=== PATIENT | female | born 1960 | race Caucasian/White ===

== ENCOUNTER → 2020-09-16 14:54 | Outpatient (CLI) | payer OTHER, SELFPAY ==
--- NOTE | ~2020-09-16 | US_ITS ---
EXAMINATION: US transvaginal DATE: 09/16/2020 15:13 INDICATION: Follow-up left ovarian cyst Comparison: Comparison to multiple prior studies sequentially, with oldest reviewed study dated 04/11. TECHNIQUE: Multiple endovaginal sonographic images of the pelvis performed. FINDINGS: The uterus is surgically absent. The right ovary is not visualized. The left ovary contains a cyst measuring 7.5 x 6.1 x 5 cm which barreto s increased in size over time. This cyst measured 3.9 x 3.9 x 2.3 cm on 04/29/2015, 6.4 x 4.5 x 5.5 c m on 01/12/2017 and 6.1 x 6 x 4.8 cm on 09/05/2018. No significant soft tissue component to this cyst. No abnormal vascularity. There is no free fluid in the pelvis. There are no abnormal masses seen on either side. IMPRESSION: 1. Enlarging simple cyst in the left adnexa, likely ovarian. This still likely represents a benign cy st, although given interval enlargement, surgical consultation is recommended. Reviewed, dictated and finalized at location A. [facility] IMPRESSION: 1. Enlarging simple cyst in the left adnexa, likely ovarian. This still likely represents a benign cyst, although given interval enlargement, surgical consult ation is recommended.
== END ==
PROVIDERS: Visit Provider Nurse Practitioner
DX: N83.202 Unspecified ovarian cyst, left side (principal)
CPT/HCPCS: 76830

== ENCOUNTER → 2020-12-12 02:08 | Outpatient (CLI) | payer MEDICARE, SELFPAY ==
[2020-12-12 18:15] LABS: SARS-CoV-2 RNA PCR Negative
== END ==
PROVIDERS: Visit Provider Obstetrics & Gynecology Gynecology
DX: Z01.812 Encounter for preprocedural laboratory examination (principal); Z20.822 Contact with and (suspected) exposure to COVID-19
CPT/HCPCS: C9803; U0003; U0005

== ENCOUNTER 2020-12-15 01:18 | Day surgery (SDC) | payer MEDICARE, SELFPAY ==
[2020-12-02 09:22] VITALS: BMI 41.2
[2020-12-15] VITALS (10 sets, daily range): BP systolic 121–150; BP diastolic 62–88; PULSE 61–96; RESP 10–24; TEMP 36.1–36.7; O2SAT 90–100; BMI 40.5
[2020-12-15] MEDS: LACTATED RINGERS 1,000 ML 30 ML IV CONT ×2 (06:29→08:52)
[2020-12-15] MEDS: KETOROLAC 15 MG/ML VIAL (*BKC) IV PUSH (06:30)
[2020-12-15] MEDS: ACETAMINOPHEN 500 MG TABLET 1000 MG PO (06:30)
--- NOTE | 2020-12-15 06:35 | WPDANESEPPF ---
Anes - Initial Pre Proc Eval Procedure: Operation Date: 12/15/20 07:30 Proposed Procedures p Laparoscopic Left Oophorectomy, Possible Right Oophorectomy - Thi Montelonog MD Date/Time: 12/15/20 06:35 Surgeon: Thi Montelongo MD Pre Op Diagnosis: Left Ovarian Cyst Patient Data Age: 60 Gender: F Height: 5 ft 5 in Weight: 112.49 kg Allergies Allergy/AdvReac Type Severity Reaction Status Date / Time No Known Allergies Allergy Verified 12/02/20 09:19 Home Medications Medication Instructions Recorded Confirmed Type Lactobacillus acidophilus 10,000 mmu cells PO HS 12/02/20 12/02/20 History [Probiotic] albuterol sulfate 90 mcg INHALATION Q6H PRN 12/02/20 12/02/20 History carisoprodol 350 mg PO HS 12/02/20 12/02/20 History cholecalciferol (vitamin D3) 125 mcg PO HS 12/02/20 12/02/20 History [Vitamin D3] fluticasone propion-salmeterol 1 puff INHALATION BID 12/02/20 12/02/20 History [Advair HFA] magnesium 100 mg PO HS 12/02/20 12/02/20 History multivitamin 1 tablet PO HS 12/02/20 12/02/20 History Patient hx anesthesia problems: none Family hx anesthesia problems: none PMFSH Past Medical History Medical History (Updated 12/15/20 @ 06:35 by Lauri James MD) Asthma HTN (hypertension) Morbid obesity MARIELY (obstructive sleep apnea) Surgical History Surgical History (Updated 12/15/20 @ 06:35 by Lauri James MD) H/O: hysterectomy Hx of laparoscopic gastric banding Family History Family History Sibling Hypertension Patient's sister is in good health Patient's brother is in good health Father Family history of heart disease in male family member before age 55 Patient's father is in good health Mother Patient's mother is in good health Other Family history of cardiovascular disease Social History Social History Smoking packs per day: 0.75 Smoking cigarettes per day: 15.0 Years smoked: 20 Smoking pack-years: 15.00 Smoking status: Former smoker Smoking end date: 07/11/00 Alcohol intake: never Substance use: current Substance use type: marijuana Other substance usage details: CBD OIL/SPRAY Last use: 11/18/20 Living arrangements: with family Spiritual care concerns: No Anes - Eval Final PreProcedure Day of Procedure 12/15/20 06:35 Patient weight: morbidly obese Heart: regular rate and rhythm Lungs: clear to auscultation Airway: Mallampati scale class II Neurological: alert and oriented Last oral intake: >/= 8 hours ASA classification: III Emergent: no Anesthetic plan: proceed Anesthesia type and monitoring: general ETT and standard monitoring Informed Consent: The patient's anesthetic plan and its attendant risks and benefits were discussed with the patient/family/POA. Questions were solicited and answers provided to the satisfaction of the patient/family/POA.
--- NOTE | 2020-12-15 07:16 | WPDHPUPDATE1 ---
History and Physical Update Update Date/Time: 12/15/20 07:16 History and Physical has been reviewed, including an updated exam of the patient. There are NO changes in the patient's condition. Risks, benefits, and alternatives have been discussed and questions answered. Patient agrees to proceed with procedure.
--- NOTE | 2020-12-15 07:16 | PM.HPGS ---
History of Present Illness History of Present Illness Consent: Risks, benefits, and alternatives have been discussed and questions answered. Patient agrees to proceed with procedure. Chief complaint: Left Ovarian Cyst Narrative: Amalia Barrett is a 60 year old female with left ovarian cyst. Cyst has been been stable since 2017. Patient has no symptoms from cyst but has decided to have it removed. It was discussed that with stability of cyst and no symptoms, my recommendation would be to leave in place and check periodically with u/s due to risks of surgery. Ca 125 is normal. Risks of infection, bleeding, injury to internal organs (maurizio. bowel, bladder, ureters, uterus, tubes), possible need for laparotomy, DVT, and general anesthesia. Possible injury to her port at her umbilicus from her lap band. Patient wants to proceed with surgery. In addition, she wants her right ovary removed unless it has extensive scarring. Patient wants to proceed with laparoscopy with BSO possible laparotomy for LSO if needed but not if only for RSO. Review of Systems Gastrointestinal: Gastrointestinal: Reports diarrhea Genitourinary: Genitourinary: Reports urinary incontinence Musculoskeletal: Musculoskeletal: Reports arthralgias [facility] Past Medical History Medical History (Updated 12/15/20 @ 07:26 by Thi Montelongo MD) Asthma Depression HTN (hypertension) Lumbar disc disease 2015 discectomy Morbid obesity (normal spontaneous vaginal delivery) x3 MARIELY (obstructive sleep apnea) Surgical History Surgical History (Updated 12/15/20 @ 07:25 by Thi Montelongo MD) H/O: hysterectomy TVH-bilateral salpingectomy; anterior and posterior repair; TOT History of x1 Hx of laparoscopic gastric banding Family History Family History Sibling Hypertension Patient's sister is in good health Patient's brother is in good health Father Family history of heart disease in male family member before age 55 Patient's father is in good health Mother Patient's mother is in good health Other Family history of cardiovascular disease Social History Social History Smoking packs per day: 0.75 Smoking cigarettes per day: 15.0 Years smoked: 20 Smoking pack-years: 15.00 Smoking status: Former smoker Smoking end date: 07/11/00 Alcohol intake: never Substance use: current Substance use type: marijuana Other substance usage details: CBD OIL/SPRAY Last use: 11/18/20 Living arrangements: with family Spiritual care concerns: No Meds Home Medications and Allergies Home Medications Medication Instructions Recorded Confirmed Type Lactobacillus acidophilus 10,000 mmu cells PO HS 12/02/20 12/02/20 History [Probiotic] albuterol sulfate 90 mcg INHALATION Q6H PRN 12/02/20 12/02/20 History carisoprodol 350 mg PO HS 12/02/20 12/02/20 History cholecalciferol (vitamin D3) 125 mcg PO HS 12/02/20 12/02/20 History [Vitamin D3] fluticasone propion-salmeterol 1 puff INHALATION BID 12/02/20 12/02/20 History [Advair HFA] magnesium 100 mg PO HS 12/02/20 12/02/20 History multivitamin 1 tablet PO HS 12/02/20 12/02/20 History Allergies Allergy/AdvReac Type Severity Reaction Status Date / Time No Known Allergies Allergy Verified 12/15/20 07:02 Vital Signs Vital Signs - 24 hr 12/15/20 06:45 Temperature 97 F L Pulse Rate 96 Respiratory Rate 14 Blood Pressure 150/88 H Pulse Oximetry 95 Exam Const: General: healthy appearing and alert Nutritional Appearance: obese (BMI 42.3) Orientation/consciousness: patient oriented x3 Resp: Effort & Inspection: normal respiratory effort Auscultation: clear to auscultation bilaterally Cardio: Rate: regular rate Rhythm: regular rhythm GI: GI Palp: Yes Soft to palpation, No Tenderness to palpation present (GI) and No Palpable mass present G
--- NOTE | 2020-12-15 08:47 | PM.PROC ---
Procedure Note - Detailed Date of procedure: 12/15/20 Pre-op diagnosis: Left Ovarian Cyst Post-op diagnosis: same Procedure performed: Laparoscopic left oophorectomy Description of procedure: The patient was taken to the operating room and placed in the dorsal lithotomy position under anesthesia. She was prepped and draped in the usual sterile fashion. The bladder was drained with a red rubber catheter. A sponge stick is placed vaginally. Attention is then turned to the abdomen. Approximately 4cm below the umbilicus in the midline the abdomen is incised in a vertical fashion and a Veress needle placed. The Veress needle was noted to be too short. The long Veress needle was then placed and water drop test is normal opening patient pressure is 7mmHg. Pneumoperitoneum was obtained to a patient pressure of 15. The Veress needle was then removed and the long 5mm trocar is placed. Intra-abdominal placement was confirmed with the laparoscope. A 5 mm trocar is placed in the midline under direct visualization 2cm above the symphysis pubis. The blunt probe was used and adhesions are noted from the omentum to the bladder flap. These were taken down using Mersilene scissors with cautery. The left ovary is visible and on attempt to bring the ovary into the surgical field it is noted to be adherent to the pelvic sidewall as well as to the omentum. Blood supply is not able to be visualized well. The decision was made to drain this cyst and fluid is collected for specimen. The cyst is opened with Mersilene scissors and copious amounts of straw-colored clear fluid were noted. The cyst drained completely. The cyst wall is then grasped and applied under countertraction. A 12mm trocar is placed in the left lower quadrant. Using 2 firings of the Endo-CARMEN stapler the specimen the is detached from the sidewall the Mersilene scissors are used for the last portion where the stapler did not cut. The specimen is removed as the 12mm trocar is removed intact the right ovary is inspected and noted to be densely adherent to the right pelvic sidewall and as previously discussed with the patient decision was made to leave the ovary intact and not open. The pelvis is irrigated noted to be hemostatic and pedicles are noted to be hemostatic. All instruments are removed. Fascia in the 12 mm left lower quadrant port is closed using 0 Vicryl. Skin incisions were closed using 4 0 nylon in interrupted fashion. Sponge, needle, and instrument counts are correct per the OR staff. Anesthesia: GETA Surgeon: Thi Montelongo MD Estimated blood loss (mL): 5 Drains: No Packing: No Pathology: yes (Left ovary) Complications: No immediate complications Condition: stable Disposition: PACU Findings: Left ovary is enlarged with a simple cyst adherent to sidewall and omentum. The right ovary is extensively scarred to the pelvic sidewall in appears normal.
--- NOTE | 2020-12-15 09:12 | SUR.PHASEI ---
O2 removed at 0910.
[2020-12-15] MEDS: fentaNYL CITRATE INJ (*CRX) 100 MCG/2 ML VIAL 25 MCG IV PUSH (09:19)
[2020-12-15] MEDS: oxyCODONE HCL (*CRX) 5 MG TAB IR PO (10:15)
== END 2020-12-15 11:54 | disposition home or self-care (01) ==
PROVIDERS: PCP Family Medicine; Visit Provider Obstetrics & Gynecology Gynecology
PROC: (CPT 49320; principal; 2020-12-15 07:30)
DX: D27.1 Benign neoplasm of left ovary (principal); I10 Essential (primary) hypertension; G47.33 Obstructive sleep apnea (adult) (pediatric); J45.909 Unspecified asthma, uncomplicated; E66.01 Morbid (severe) obesity due to excess calories; Z68.41 Body mass index [BMI] 40.0-44.9, adult; Z87.891 Personal history of nicotine dependence
CPT/HCPCS: 58661; 88108; 88305; A9270; C9803; J1100; J1885; J2250; J2405; J2704; J2710; J3010; J7030; J7120; U0003; U0005

== ENCOUNTER 2022-10-22 00:52 | Day surgery (SDC) | payer MEDICARE, SELFPAY ==
[2022-10-08 13:35] VITALS: BMI 39.9
[2022-10-22 10:01] VITALS: BP 136/78; PULSE 93; RESP 18; TEMP 36.1; O2SAT 94
[2022-10-22] MEDS: LACTATED RINGERS 1,000 ML 150 ML IV CONT (10:13)
[2022-10-22 10:17] LABS: Glucose Point of Care 80 mg/dl (65-105)
--- NOTE | 2022-10-22 10:18 | PM.HPGS ---
History of Present Illness History of Present Illness Consent: Risks, benefits, and alternatives have been discussed and questions answered. Patient agrees to proceed with procedure. Chief complaint: epigastric pain, change in bowel habit Narrative: Amalia Barrett is a 62 year old female Referred for colonoscopy and EGD. Patient reports sticky tarry stools. She states they were darker in nature. No obvious bleeding noted. She reports no recent stool testing has been accomplished. Patient notes vague epigastric discomfort. She reports 10 years ago had a hyperplastic colon polyp. Patient is not yet tried any fiber supplementation for her irregular stools. EGD and colonoscopy requested because of her discomfort. Patient does have a past medical history of a lap band. Review of Systems Review of Systems: Review of systems noncontributory. [facility] Past Medical History Medical History (Updated 09/23/22 @ 13:56 by Joellen Lopez APN-Samina) Asthma Black tarry stools Depression Encounter for screening colonoscopy Epigastric pain HTN (hypertension) Loose stools Lumbar disc disease 2015 discectomy Morbid obesity (normal spontaneous vaginal delivery) x3 Obese MARIELY (obstructive sleep apnea) Surgical History Surgical History H/O: hysterectomy TVH-bilateral salpingectomy; anterior and posterior repair; TOT History of x1 Hx of laparoscopic gastric banding Family History Family History Sibling Hypertension Patient's sister is in good health Patient's brother is in good health Father Family history of heart disease in male family member before age 55 Patient's father is in good health Mother Patient's mother is in good health Other Family history of cardiovascular disease Social History Social History Smoking packs per day: 0.5 Smoking cigarettes per day: 10.0 Years smoked: 20 Smoking pack-years: 10.00 Smoking status: Former smoker Tobacco type: cigarettes Smoking end date: 07/11/00 Alcohol intake: never Substance use: current Substance use type: marijuana Other substance usage details: CBD OIL/SPRAY Last use: 10/01/22 Lack of Transportation: No Lack of Food: Never True Current Housing: I Have Housing Concerned About Future Housing: No Difficulty Paying Gas/Electric Bills: No Difficulty Paying for Meds: No Currently Unemployed: No Education: High School Diploma/GED Difficulty w/ Childcare or Family Care: No Living arrangements: with family Spiritual care concerns: No Meds Home Medications and Allergies Home Medications Medication Instructions Recorded Confirmed Type albuterol sulfate 90 mcg/actuation 90 mcg inhalation Q6H PRN 12/02/20 10/08/22 History aerosol inhaler Bronchospasm fluticasone propionate 115 1 puff inhalation DAILY 12/02/20 10/08/22 History mcg-salmeterol 21 mcg/actuation HFA inhaler (Advair HFA) losartan 100 mg tablet 100 mg PO DAILY 09/09/22 10/08/22 History mupirocin 2 % topical ointment 1 applic topical BID #22 grams 09/09/22 10/08/22 Rx sodium,potassium,mag sulfates 17.5 See Rx Instructions PO .COMPLEX 09/28/22 10/08/22 Rx gram-3.13 gram-1.6 gram oral soln #354 mL (Suprep Bowel Prep Kit) Mounjaro 2.5 mg subdermal WEEKLY 10/08/22 10/08/22 History atorvastatin 10 mg PO DAILY 10/08/22 10/08/22 History diltiazem HCl 240 mg 240 mg PO DAILY 10/08/22 10/08/22 History capsule,extended release 24 hr Allergies Allergy/AdvReac Type Severity Reaction Status Date / Time No Known Allergies Allergy Verified 10/22/22 10:00 Vital Signs Vital Signs - 24 hr 10/22/22 10:01 Temperature 97 F L Pulse Rate 93 Respiratory Rate 18 Blood Pressure 136/78 Pulse Oximetry 94 Oxygen Delivery Room Air Exam Narrative: Physical exam reveals pa
--- NOTE | 2022-10-22 10:42 | WPDANESEPPF ---
Anes - Initial Pre Proc Eval Procedure: Operation Date: 10/22/22 11:00 Proposed Procedures p Esophagogastroduodenoscopy & Colonoscopy - Dmitri Richey MD Date/Time: 10/22/22 10:42 Surgeon: Dmitri Richey MD Pre Op Diagnosis: epigastric pain, change in bowel habit Patient Data Age: 62 Gender: F Height: 1.65 m Weight: 108.7 kg Last Vital Signs Temp 97 F L 10/22/22 10:01 Pulse 93 10/22/22 10:01 Resp 18 10/22/22 10:01 BP 136/78 10/22/22 10:01 Pulse Ox 94 10/22/22 10:01 O2 Del Method Room Air 10/22/22 10:01 Allergies Allergy/AdvReac Type Severity Reaction Status Date / Time No Known Allergies Allergy Verified 10/22/22 10:00 Home Medications Medication Instructions Recorded Confirmed Type albuterol sulfate 90 mcg/actuation 90 mcg inhalation Q6H PRN 12/02/20 10/08/22 History aerosol inhaler Bronchospasm fluticasone propionate 115 1 puff inhalation DAILY 12/02/20 10/08/22 History mcg-salmeterol 21 mcg/actuation HFA inhaler (Advair HFA) losartan 100 mg tablet 100 mg PO DAILY 09/09/22 10/08/22 History mupirocin 2 % topical ointment 1 applic topical BID #22 grams 09/09/22 10/08/22 Rx sodium,potassium,mag sulfates 17.5 See Rx Instructions PO .COMPLEX 09/28/22 10/08/22 Rx gram-3.13 gram-1.6 gram oral soln #354 mL (Suprep Bowel Prep Kit) Mounjaro 2.5 mg subdermal WEEKLY 10/08/22 10/08/22 History atorvastatin 10 mg PO DAILY 10/08/22 10/08/22 History diltiazem HCl 240 mg 240 mg PO DAILY 10/08/22 10/08/22 History capsule,extended release 24 hr Laboratory Tests 10/22/22 10:12 POC Capillary Glucose 80 mg/dl mg/dl (65-105) Patient hx anesthesia problems: none Family hx anesthesia problems: none Results Review: All pre-operative results and documents have been reviewed as part of the pre-operative evaluation. [facility] Past Medical History Medical History (Updated 09/23/22 @ 13:56 by JOSÉ MIGUEL Calderon) Asthma Black tarry stools Depression Encounter for screening colonoscopy Epigastric pain HTN (hypertension) Loose stools Lumbar disc disease 2015 discectomy Morbid obesity (normal spontaneous vaginal delivery) x3 Obese MARIELY (obstructive sleep apnea) Surgical History Surgical History H/O: hysterectomy TVH-bilateral salpingectomy; anterior and posterior repair; TOT History of x1 Hx of laparoscopic gastric banding Family History Family History Sibling Hypertension Patient's sister is in good health Patient's brother is in good health Father Family history of heart disease in male family member before age 55 Patient's father is in good health Mother Patient's mother is in good health Other Family history of cardiovascular disease Social History Social History Smoking packs per day: 0.5 Smoking cigarettes per day: 10.0 Years smoked: 20 Smoking pack-years: 10.00 Smoking status: Former smoker Tobacco type: cigarettes Smoking end date: 07/11/00 Alcohol intake: never Substance use: current Substance use type: marijuana Other substance usage details: CBD OIL/SPRAY Last use: 10/01/22 Lack of Transportation: No Lack of Food: Never True Current Housing: I Have Housing Concerned About Future Housing: No Difficulty Paying Gas/Electric Bills: No Difficulty Paying for Meds: No Currently Unemployed: No Education: High School Diploma/GED Difficulty w/ Childcare or Family Care: No Living arrangements: with family Spiritual care concerns: No Anes - Eval Final PreProcedure Day of Procedure 10/22/22 10:42 Patient weight: morbidly obese Heart: regular rate and rhythm Lungs: clear to auscultation Airway: Mallampati scale class II Neurological: alert and oriented Last oral intake: >/= 8 hours ASA classification:
[2022-10-22 11:23] VITALS: BP 114/69; PULSE 90; RESP 16; O2SAT 97
[2022-10-22 11:33] VITALS: BP 127/80; PULSE 94; RESP 22; O2SAT 96
[2022-10-22 11:43] VITALS: BP 119/78; PULSE 85; RESP 18; O2SAT 97
--- NOTE | 2022-10-22 12:12 | SUR.OPER ---
EGD started at 1049 and ended at 1051. Colonoscopy started at 1057 and ended at 1114.
== END 2022-10-22 12:00 | disposition home or self-care (01) ==
PROVIDERS: PCP Family Medicine; Visit Provider Internal Medicine Gastroenterology
PROC: 0DJ08ZZ Inspection of Upper Intestinal Tract, Via Natural or Artificial Opening Endoscopic (ICD-10-PCS; CPT 43235; principal; 2022-10-22 11:00)
DX: Z12.11 Encounter for screening for malignant neoplasm of colon (principal); D12.5 Benign neoplasm of sigmoid colon; D12.2 Benign neoplasm of ascending colon; K57.30 Diverticulosis of large intestine without perforation or abscess without bleeding; K64.8 Other hemorrhoids; K21.00 Gastro-esophageal reflux disease with esophagitis, without bleeding; J45.909 Unspecified asthma, uncomplicated; I10 Essential (primary) hypertension; G47.33 Obstructive sleep apnea (adult) (pediatric); Z98.84 Bariatric surgery status; Z87.891 Personal history of nicotine dependence; F12.90 Cannabis use, unspecified, uncomplicated; E66.01 Morbid (severe) obesity due to excess calories; Z68.39 Body mass index [BMI] 39.0-39.9, adult; Z79.51 Long term (current) use of inhaled steroids
CPT/HCPCS: 45385; 45381; 43239; 82948; 87081; 88305; J2704; J7120

== ENCOUNTER 2023-06-11 09:40 | Outpatient (CLI) | payer MEDICARE, SELFPAY ==
--- NOTE | 2023-06-11 | ECHO_ITS ---
Patient Info Name: Amalia Barrett Age: 62 years : 1960 Gender: Female Ht: 65 in Wt: 222 lbs BSA: 2.19 m2 HR: 95 bpm BP: 148 / 92 mmHg Heart Rhythm: Sinus Rhythm Technical Quality: Good Exam Date: 06/11/2023 10:05 AM Exam Location: Echo Lab Patient Status: Outpatient Admit Date: 06/11/2023 Staff Ordering Physician: Vijay Torres MD Safety Inspector: Luis Marcos RDCS Attending Provider: Vijay Torres MD Exam Type: CA echo doppler color flow Study Info Indications - ortheostatic dizziness Complete two-dimensional, color flow and Doppler transthoracic echocardiogram is performed. Summary 1. Complete two-dimensional, color flow and Doppler transthoracic echocardiogram is performed. 2. Left ventricular chamber dimension is normal. 3. Left ventricular systolic function is normal, estimated at 60-65%. 4. There is mild concentric increased left ventricular wall thickness. 5. The left ventricular diastolic function is grade I diastolic dysfunction. 6. E/e' 9 is minimally elevated. 7. No pulmonary hypertension, estimated pulmonary arterial systolic pressure is 10 mmHg. Left Ventricle E/e' 9 is minimally elevated. Left ventricular chamber dimension is normal. Left ventricular systolic function is normal, estimated at 60-65%. There is mild concentric increased left ventricular wall thickness. The left ventricular diastolic function is grade I diastolic dysfunction. Right Ventricle Right ventricular chamber dimension is normal. Right ventricular systolic function is normal. Left Atria Left atrial chamber dimension is normal. Right Atria Right atrial chamber dimension is normal. Aortic Valve The aortic valve is trileaflet. There is no aortic valve stenosis. There is no aortic valve regurgitation. Pulmonic Valve There is no pulmonic regurgitation. Mitral Valve There is no mitral valve stenosis. There is no mitral valve regurgitation. Tricuspid Valve There is no tricuspid valve regurgitation. No pulmonary hypertension, estimated pulmonary arterial systolic pressure is 10 mmHg. Pericardium/Pleural There is no pericardial effusion. Inferior Vena Cava Normal inferior vena cava with >50% collapse upon inspiration consistent with normal right atrial pressure, 5 mmHg. Aorta The aortic root size at the sinus of Valsalva is normal. Left Ventricular Outflow Tract Name Value Normal LVOT 2D LVOT Diameter 1.9 cm LVOT Doppler LVOT Peak Gradient 3 mmHg LVOT Mean Gradient 2 mmHg LVOT VTI 23 cm LVOT VTI/AV VTI Ratio 0.9 LVOT Stroke Volume 63 ml LVOT CO 4.2 l/min LVOT CI 1.9 l/min/m2 Pulmonic Valve Name Value Normal RVOT Doppler RVOT Peak Gradient 1 mmHg PV Doppler
[2023-06-11 09:59] LABS: Basophils Absolute Auto 0.1 K/mm3 (0.0-0.1); Basophils Percent Auto 0.8 % (0.2-1.2); Eosinophils Absolute Auto 0.2 K/mm3 (0-0.3); Eosinophils Percent Auto 3.8 % (0-4.4); Hematocrit 44.5 % (37.0-47.0); Hemoglobin 13.9 g/dL (12.0-15.0); Immature Granulocyte Absolute 0.01 K/mm3 (0.00-0.031); Immature Granulocyte Percent A 0.2 % (0-0.5); Lymphocytes Absolute Auto 2.68 K/mm3 (0.9-3.2); Lymphocytes Percent Auto 42.4 % (18.3-44.2); Mean Corpuscular HGB Conc 31.2 g/dl (32-36); Mean Corpuscular Hemoglobin 29.4 pg (26-34); Mean Corpuscular Volume 94.1 fl (80-100); Monocytes Absolute Auto 0.5 K/mm3 (0.1-0.6); Monocytes Percent Auto 7.9 % (2.6-8.5); Neutrophils Absolute Auto 2.8 K/mm3 (1.3-6.7); Neutrophils Percent Auto 44.9 % (45.5-73.1); Platelet Count Result 329 k/mm3 (150-375); Red Blood Count 4.73 M/mm3 (4.2-5.4); White Blood Count 6.3 K/mm3 (4.5-10.0)
[2023-06-11 10:08] LABS: Alanine Aminotransferase 26 U/L (6-35); Albumin Level 4.4 g/dL (3.5-5.1); Alkaline Phosphatase 91 U/L (38-126); Anion Gap 8 mmol/L (8-16); Aspartate Amino Transferase 29 U/L (14-36); Bilirubin,Total 0.5 mg/dL (0.2-1.3); Blood Urea Nitrogen 10 mg/dL (7-17); Calcium 9.2 mg/dL (8.4-10.2); Carbon Dioxide 31 mmol/L (22-30); Chloride 103 mmol/L (98-107); Estimated Glomerular Filt Rate > 60; Glucose 103 mg/dL (65-110); Sodium 142 mmol/L (137-145)
== END 2023-06-11 09:41 | disposition home or self-care (01) ==
PROVIDERS: PCP Family Medicine; Visit Provider Internal Medicine Cardiovascular Disease
DX: R42 Dizziness and giddiness (principal); R06.09 Other forms of dyspnea
CPT/HCPCS: 36415; 80053; 84439; 84443; 85025; 93306

== ENCOUNTER 2023-06-13 01:30 | Day surgery (SDC) | payer MEDICARE, SELFPAY ==
[2023-05-26 13:20] VITALS: BMI 36.9
--- NOTE | 2023-06-10 09:34 | SUR.PREOP ---
Patient called regarding upcoming procedure. Reviewed preop instructions, appointment times, and procedure prep.
--- NOTE | 2023-06-10 09:37 | SUR.PREOP ---
Patient stated pharmacy doesn't have her prep prescription. Prescription being re-ordered.Instructed patient to call me in a couple of hours if pharmacy still didn't receive order. Patient voiced understanding.
[2023-06-13 06:53] VITALS: BP 138/84; PULSE 86; RESP 16; TEMP 36.6; O2SAT 95; BMI 36.8
[2023-06-13 07:06] LABS: Glucose Point of Care 91 mg/dl (65-105)
[2023-06-13] MEDS: LACTATED RINGERS 1,000 ML 150 ML IV CONT (07:07)
--- NOTE | 2023-06-13 07:26 | PM.HPGS ---
History of Present Illness History of Present Illness Consent: Risks, benefits, and alternatives have been discussed and questions answered. Patient agrees to proceed with procedure. Chief complaint: hx of colon polyps Narrative: Amalia Barrett is a 62 year old female Presents for follow-up colonoscopy. Patient had several polyps in the colon in October of this year. In the ascending colon she had particularly large sessile polyps that removed piecemeal fashion and portion of which likely were not removed. She returns today for complete excision of the residual polyps. Patient reports that her current weight appetite and bowel movements are normal. Patient denies abdominal pain. She has had no bleeding. Family history noncontributory. Review of Systems Review of Systems: Review of systems noncontributory. [facility] Past Medical History Medical History (Updated 06/13/23 @ 07:28 by Dmitri Richey MD) Asthma Black tarry stools Depression Encounter for screening colonoscopy Epigastric pain HTN (hypertension) Loose stools Lumbar disc disease 2015 discectomy Morbid obesity (normal spontaneous vaginal delivery) x3 Obese MARIELY (obstructive sleep apnea) Surgical History Surgical History H/O: hysterectomy TVH-bilateral salpingectomy; anterior and posterior repair; TOT History of x1 Hx of laparoscopic gastric banding Family History Family History Sibling Hypertension Patient's sister is in good health Patient's brother is in good health Father Family history of heart disease in male family member before age 55 Patient's father is in good health Mother Patient's mother is in good health Other Family history of cardiovascular disease Social History Social History Smoking packs per day: 0.5 Smoking cigarettes per day: 10.0 Years smoked: 20 Smoking pack-years: 10.00 Smoking status: Former smoker Tobacco type: cigarettes Smoking end date: 07/11/00 Alcohol intake: current Alcohol use details: 1 drink monthly Substance use: current Substance use type: does not use Other substance usage details: CBD OIL/SPRAY Last use: 10/01/22 Lack of Transportation: No Lack of Food: Never True Current Housing: I Have Housing Concerned About Future Housing: No Difficulty Paying Gas/Electric Bills: No Difficulty Paying for Meds: No Currently Unemployed: No Education: High School Diploma/GED Difficulty w/ Childcare or Family Care: No Living arrangements: with family Spiritual care concerns: No Meds Home Medications and Allergies Home Medications Medication Instructions Recorded Confirmed Type albuterol sulfate 90 mcg/actuation 90 mcg inhalation Q6H PRN 12/02/20 06/13/23 History aerosol inhaler Bronchospasm fluticasone propionate 115 1 puff inhalation DAILY 12/02/20 06/13/23 History mcg-salmeterol 21 mcg/actuation HFA inhaler (Advair HFA) diltiazem HCl 240 mg 240 mg PO DAILY 10/08/22 06/13/23 History capsule,extended release 24 hr omeprazole 20 mg capsule,delayed 20 mg PO DAILY #30 caps 10/22/22 06/13/23 Rx release clotrimazole-betamethasone 1 1 applic topical BID PRN other 05/26/23 06/13/23 History %-0.05 % topical cream tirzepatide 5 mg/0.5 mL 5 mg subcut WEEKLY 05/26/23 06/13/23 History subcutaneous pen injector (Cosmeunelenita) Allergies Allergy/AdvReac Type Severity Reaction Status Date / Time No Known Allergies Allergy Verified 06/13/23 06:51 Vital Signs Vital Signs - 24 hr 06/13/23 06:53 Temperature 97.8 F Pulse Rate 86 Respiratory Rate 16 Blood Pressure 138/84 Pulse Oximetry 95 Oxygen Delivery Room Air Exam Narrative: Physical exam reveals patient to be alert. Vital signs stable. HEENT exam is unremarkable. Patient is anicteric
--- NOTE | 2023-06-13 07:58 | WPDANESEPPF ---
Anes - Initial Pre Proc Eval Procedure: Operation Date: 06/13/23 08:00 Proposed Procedures p Colonoscopy - Dmitri Richey MD Date/Time: 06/13/23 07:58 Surgeon: Dmitri Richey MD Pre Op Diagnosis: hx of colon polyps Patient Data Age: 62 Gender: F Height: 1.65 m Weight: 100.6 kg Last Vital Signs Temp 97.8 F 06/13/23 06:53 Pulse 86 06/13/23 06:53 Resp 16 06/13/23 06:53 BP 138/84 06/13/23 06:53 Pulse Ox 95 06/13/23 06:53 O2 Del Method Room Air 06/13/23 06:53 Allergies Allergy/AdvReac Type Severity Reaction Status Date / Time No Known Allergies Allergy Verified 06/13/23 06:51 Home Medications Medication Instructions Recorded Confirmed Type albuterol sulfate 90 mcg/actuation 90 mcg inhalation Q6H PRN 12/02/20 06/13/23 History aerosol inhaler Bronchospasm fluticasone propionate 115 1 puff inhalation DAILY 12/02/20 06/13/23 History mcg-salmeterol 21 mcg/actuation HFA inhaler (Advair HFA) diltiazem HCl 240 mg 240 mg PO DAILY 10/08/22 06/13/23 History capsule,extended release 24 hr omeprazole 20 mg capsule,delayed 20 mg PO DAILY #30 caps 10/22/22 06/13/23 Rx release clotrimazole-betamethasone 1 1 applic topical BID PRN other 05/26/23 06/13/23 History %-0.05 % topical cream tirzepatide 5 mg/0.5 mL 5 mg subcut WEEKLY 05/26/23 06/13/23 History subcutaneous pen injector (Mounjaro) Laboratory Tests 06/13/23 07:04 POC Capillary Glucose 91 mg/dl (65-105) Patient hx anesthesia problems: none Family hx anesthesia problems: none Results Review: All pre-operative results and documents have been reviewed as part of the pre-operative evaluation. [facility] Past Medical History Medical History (Updated 06/13/23 @ 07:28 by Dmitri Richey MD) Asthma Black tarry stools Depression Encounter for screening colonoscopy Epigastric pain HTN (hypertension) Loose stools Lumbar disc disease 2015 discectomy Morbid obesity (normal spontaneous vaginal delivery) x3 Obese MARIELY (obstructive sleep apnea) Surgical History Surgical History H/O: hysterectomy TVH-bilateral salpingectomy; anterior and posterior repair; TOT History of x1 Hx of laparoscopic gastric banding Family History Family History Sibling Hypertension Patient's sister is in good health Patient's brother is in good health Father Family history of heart disease in male family member before age 55 Patient's father is in good health Mother Patient's mother is in good health Other Family history of cardiovascular disease Social History Social History Smoking packs per day: 0.5 Smoking cigarettes per day: 10.0 Years smoked: 20 Smoking pack-years: 10.00 Smoking status: Former smoker Tobacco type: cigarettes Smoking end date: 07/11/00 Alcohol intake: current Alcohol use details: 1 drink monthly Substance use: current Substance use type: does not use Other substance usage details: CBD OIL/SPRAY Last use: 10/01/22 Lack of Transportation: No Lack of Food: Never True Current Housing: I Have Housing Concerned About Future Housing: No Difficulty Paying Gas/Electric Bills: No Difficulty Paying for Meds: No Currently Unemployed: No Education: High School Diploma/GED Difficulty w/ Childcare or Family Care: No Living arrangements: with family Spiritual care concerns: No Anes - Eval Final PreProcedure Day of Procedure 06/13/23 07:58 Patient weight: obese Heart: regular rate and rhythm Lungs: clear to auscultation Airway: Mallampati scale class II Neurological: alert and oriented Last oral intake: >/= 8 hours ASA classification: III Emergent: no Anesthetic plan: proceed Anesthesia type and monitoring: general GIVS and standard monitoring Results Rev
[2023-06-13 08:39] VITALS: BP 133/83; PULSE 81; RESP 21; O2SAT 98
[2023-06-13 08:49] VITALS: BP 126/81; PULSE 76; RESP 19; O2SAT 97
[2023-06-13 08:59] VITALS: BP 140/82; PULSE 78; RESP 21; O2SAT 100
== END 2023-06-13 09:07 | disposition home or self-care (01) ==
PROVIDERS: PCP Family Medicine; Visit Provider Internal Medicine Gastroenterology
PROC: 0DJD8ZZ Inspection of Lower Intestinal Tract, Via Natural or Artificial Opening Endoscopic (ICD-10-PCS; CPT 45378; principal; 2023-06-13 08:00)
DX: Z12.11 Encounter for screening for malignant neoplasm of colon (principal); D12.2 Benign neoplasm of ascending colon; D12.5 Benign neoplasm of sigmoid colon; K57.30 Diverticulosis of large intestine without perforation or abscess without bleeding; F32.A Depression, unspecified; I10 Essential (primary) hypertension; J45.909 Unspecified asthma, uncomplicated; G47.33 Obstructive sleep apnea (adult) (pediatric); E66.9 Obesity, unspecified; Z68.36 Body mass index [BMI] 36.0-36.9, adult; Z79.51 Long term (current) use of inhaled steroids; Z79.85 Long-term (current) use of injectable non-insulin antidiabetic drugs; Z87.891 Personal history of nicotine dependence; Z82.49 Family history of ischemic heart disease and other diseases of the circulatory system
CPT/HCPCS: 45385; 82948; 88305; J2001; J2704; J7120

== ENCOUNTER 2023-06-15 08:07 | Outpatient (CLI) | payer MEDICARE, SELFPAY ==
--- NOTE | 2023-07-07 21:04 | WPDHOMESLEEP ---
Sleep Study - Home Unattended Date of Study: 06/15/23 Ordering Provider: Vijay Torres MD Interpreting Provider: Pau Hairston MD Home Sleep Study Type: Watch PAT Height: 1.65 m Weight: 100.698 kg Body Mass Index: 36.9 Neck Circumference (inches): 15 [place]: 5 Reason for Sleep Study History of obstructive sleep apnea, has not used CPAP for years, difficulty talking tolerating a mask * 01/13/2015, split night study attempted; moderate obstructive sleep apnea, AHI 17, multiple oxygen desaturation lowest saturation 71%; BMI was 40.6. THe patient could not tolerate using CPAP so the entire night was conducted as a basic study Sleep History Amalia Barrett is a 62-year-old woman with a history of obstructive sleep apnea, has not used CPAP due to difficulty tolerating the mask. Medical comorbidities include hypertension, pre diabetes, fibromyalgia, irritable bowel syndrome and degenerative joint disease. She has had chronic fatigue for about 2 years. the sleep survey is not available to review. The patient has a history of snoring, non restorative sleep and occasional gasping during the night. She has a history of occasional sweating at night and occasional palpitations during sleep. There is a history of uncomfortable feelings with crawling aching sensations in the legs. [facility] Past Medical History Medical History (Updated 07/07/23 @ 21:31 by Pau Hairston MD) Asthma Black tarry stools Depression Encounter for screening colonoscopy Epigastric pain HTN (hypertension) Loose stools Lumbar disc disease 2015 discectomy Morbid obesity (normal spontaneous vaginal delivery) x3 Obese MARIELY (obstructive sleep apnea) Surgical History Surgical History H/O: hysterectomy TVH-bilateral salpingectomy; anterior and posterior repair; TOT History of x1 Hx of laparoscopic gastric banding Family History Family History Sibling Hypertension Patient's sister is in good health Patient's brother is in good health Father Family history of heart disease in male family member before age 55 Patient's father is in good health Mother Patient's mother is in good health Other Family history of cardiovascular disease Social History Social History Smoking packs per day: 0.5 Smoking cigarettes per day: 10.0 Years smoked: 20 Smoking pack-years: 10.00 Smoking status: Former smoker Tobacco type: cigarettes Smoking end date: 07/11/00 Alcohol intake: current Alcohol use details: 1 drink monthly Substance use: current Substance use type: does not use Other substance usage details: CBD OIL/SPRAY Last use: 10/01/22 Lack of Transportation: No Lack of Food: Never True Current Housing: I Have Housing Concerned About Future Housing: No Difficulty Paying Gas/Electric Bills: No Difficulty Paying for Meds: No Currently Unemployed: No Education: High School Diploma/GED Difficulty w/ Childcare or Family Care: No Living arrangements: with family Spiritual care concerns: No Medications Home Medications Medication Instructions Recorded Confirmed Type albuterol sulfate 90 mcg/actuation 90 mcg inhalation Q6H PRN 12/02/20 06/13/23 History aerosol inhaler Bronchospasm fluticasone propionate 115 1 puff inhalation DAILY 12/02/20 06/13/23 History mcg-salmeterol 21 mcg/actuation HFA inhaler (Advair HFA) diltiazem HCl 240 mg 240 mg PO DAILY 10/08/22 06/13/23 History capsule,extended release 24 hr omeprazole 20 mg capsule,delayed 20 mg PO DAILY #30 caps 10/22/22 06/13/23 Rx release clotrimazole-betamethasone 1 1 applic topical BID PRN other 05/26/23 06/13/23 History %-0.05 % topical cream tirzepatide 5 mg/0.5 mL 5 mg subcut WEEKLY 05/26/23 06/13/23 History subcutaneous pen injector (Tera
[2023-07-07 21:35] VITALS: BMI 36.9
== END 2023-06-16 09:40 | disposition home or self-care (01) ==
LOC: ANHCSM 08:08
PROVIDERS: PCP Family Medicine; Visit Provider Internal Medicine Cardiovascular Disease
DX: G47.33 Obstructive sleep apnea (adult) (pediatric) (principal)
CPT/HCPCS: 95800

== ENCOUNTER 2023-12-15 11:08 | Outpatient (CLI) | payer MEDICARE, SELFPAY ==
[2023-12-15 19:58] LABS: Basophils Absolute Auto 0.1 K/mm3 (0.0-0.1); Basophils Percent Auto 0.9 % (0.2-1.2); Eosinophils Absolute Auto 0.3 K/mm3 (0-0.3); Eosinophils Percent Auto 3.6 % (0-4.4); Hematocrit 44.2 % (37.0-47.0); Hemoglobin 13.9 g/dL (12.0-15.0); Immature Granulocyte Absolute 0.02 K/mm3 (0.00-0.031); Immature Granulocyte Percent A 0.3 % (0-0.5); Lymphocytes Percent Auto 40.7 % (18.3-44.2); Mean Corpuscular HGB Conc 31.4 g/dl (32-36); Mean Corpuscular Hemoglobin 29.7 pg (26-34); Mean Corpuscular Volume 94.4 fl (80-100); Mean Platelet Volume 9.6 fl (7.4-10.4); Monocytes Absolute Auto 0.6 K/mm3 (0.1-0.6); Monocytes Percent Auto 9.2 % (2.6-8.5); Neutrophils Absolute Auto 3.1 K/mm3 (1.3-6.7); Neutrophils Percent Auto 45.3 % (45.5-73.1); Platelet Count Result 328 k/mm3 (150-375); Red Blood Count 4.68 M/mm3 (4.2-5.4); White Blood Count 6.9 K/mm3 (4.5-10.0)
[2023-12-15 22:06] LABS: Alanine Aminotransferase 30 U/L (6-35); Albumin Level 4.5 g/dL (3.5-5.1); Alkaline Phosphatase 85 U/L (38-126); Anion Gap 4 mmol/L (4-12); Aspartate Amino Transferase 36 U/L (14-36); Bilirubin,Total 0.7 mg/dL (0.2-1.3); Blood Urea Nitrogen 12 mg/dL (7-17); Calcium 9.8 mg/dL (8.4-10.2); Carbon Dioxide 33 mmol/L (22-30); Chloride 103 mmol/L (98-107); Cholesterol 245 mg/dL (0-200); Estimated Glomerular Filt Rate > 60; Glucose 94 mg/dL (65-110); HDL Direct 74 mg/dL; Potassium 4.8 mmol/L (3.4-5.0); Sodium 140 mmol/L (137-145); Triglycerides 112 mg/dL (<150)
[2023-12-15 22:18] LABS: LDL Cholesterol Direct 132 mg/dL
[2023-12-16 01:03] LABS: Hemoglobin A1C 5.9 % (<5.7)
[2023-12-16 12:56] LABS: Microalbumin Urine Random 7.1 mg/L (0-16.7)
[2023-12-16 13:12] LABS: Creatinine Urine 158.4 mg/dL; MALB Creatinine Ratio 4.5 mg/g (0-30)
[2023-12-16 13:36] LABS: Vitamin D 25 Hydroxy 32.5 ng/mL
== END 2023-12-15 11:09 | disposition home or self-care (01) ==
LOC: ANHGOSHLAB 11:09
PROVIDERS: PCP Internal Medicine; Visit Provider Clinical Nurse Specialist
DX: E66.9 Obesity, unspecified (principal); I10 Essential (primary) hypertension; E55.9 Vitamin D deficiency, unspecified; E11.9 Type 2 diabetes mellitus without complications; G47.33 Obstructive sleep apnea (adult) (pediatric)
CPT/HCPCS: 36415; 80053; 80061; 82043; 82306; 82607; 83036; 84443; 85025

== ENCOUNTER 2023-12-15 11:19 | Outpatient (CLI) | payer MEDICARE, SELFPAY ==
--- NOTE | ~2023-12-15 | XR_ITS ---
Right Shoulder Technique: AP and scapular Y views were obtained. Clinical History: Pain Findings: No fracture or dislocation is seen. There is moderate AC joint degenerative change. There i s severe glenohumeral joint degenerative change.. Soft tissues are unremarkable. Impression: Degenerative changes, as above. Reviewed, dictated and finalized at location . Impression: Degenerative changes, as above.
== END 2023-12-15 11:20 ==
PROVIDERS: PCP Internal Medicine; Visit Provider Clinical Nurse Specialist
DX: M25.511 Pain in right shoulder (principal)
CPT/HCPCS: 73030

== ENCOUNTER 2024-05-29 08:56 | Outpatient (CLI) | payer MEDICARE, SELFPAY ==
--- NOTE | ~2024-05-29 | MMUS_ITS ---
EXAMINATION: MM diagnostic cindy BI w anam, US breast BI limited HISTORY: Right breast lump, left breast pain TECHNIQUE: 3-D tomosynthesis images of the breasts were performed and synthetic 2-D images were gener ated. CAD analysis was submitted and interpreted. High resolution limited bilateral breast ultrasound was performed. COMPARISON: 10/12/2023, 04/21/2022 BREAST PARENCHYMAL COMPOSITION:Not Dense. The breasts are almost entirely fatty FINDINGS: MAMMOGRAPHIC FINDINGS: Stable parenchymal appearance of the breasts as compared to prior exam. No suspicious mass lesion or distortion. No suspicious mesenteric or calcification. ULTRASOUND: Sonographic imaging of the area of palpable concern of the right breast at the 7:00 position was perf ormed. No solid or cystic lesion seen. No sonographic abnormality seen in the region scanned. Sonogra phic imaging also performed of the left breast 9:00 position, the area pain. Again, no solid or cysti c lesion seen. No sonographic abnormality seen. IMPRESSION: No evidence for malignancy. No distinct mammographic or sonographic correlate seen at the areas of c oncern in either breast. BI-RADS Category 1: Negative Reviewed, dictated and finalized at location M. [facility] IMPRESSION: No evidence for malignancy. No distinct mammographic or sonographic correlate seen at the areas of concern in either breast. BI-RADS Category 1: Negative
== END 2024-05-29 08:57 | disposition home or self-care (01) ==
PROVIDERS: PCP Nurse Practitioner; Visit Provider Nurse Practitioner
DX: N63.10 Unspecified lump in the right breast, unspecified quadrant (principal)
CPT/HCPCS: 76642; 77062; 77066; G0279

== ENCOUNTER 2024-06-22 11:52 | Outpatient (CLI) | payer MEDICARE, SELFPAY ==
--- NOTE | ~2024-06-22 | XR_ITS ---
XR knee LT 3V 06/22/2024 12:15 Indication: Left knee pain Procedure: 3 views left knee Comparison: No prior studies for comparison. Findings: There is mild tricompartment osteoarthritis. No significant joint effusion. No foreign bodi es. No acute fracture or traumatic malalignment. Impression: 1: Mild tricompartment osteoarthritis of the left knee. Reviewed, dictated and finalized at location B. ING MACHINE SET UP OPERATOR Impression: 1: Mild tricompartment osteoarthritis of the left knee.
== END 2024-06-22 11:53 | disposition home or self-care (01) ==
LOC: GOSHIMG 11:53
PROVIDERS: PCP Clinical Nurse Specialist; Visit Provider Clinical Nurse Specialist
DX: M17.12 Unilateral primary osteoarthritis, left knee (principal)
CPT/HCPCS: 73562

== ENCOUNTER 2024-06-22 12:31 | Outpatient (CLI) | payer MEDICARE, SELFPAY ==
--- OUTSIDE RECORDS SUMMARY | 2024-06-22 13:07 | XMS_ITS | Continuity of Care Document ---
Author Organization [facility] Address [address] [place] [address] [address] [place] [address] Phone Care Team Providers Care Inward Toll Operator Name Role Phone Armani PT, MS, Siva Unavailable Unavailable Procedures Procedure Date PT RE-EVALUATION THERAPEUTIC EXERCISES MANUAL THERAPY HOT/COLD PACK ELECTRIC STIMULATION UNA Mobility: Walking And Moving Limitations -Curent Mobility: Walking And Moving Limitation- Goal Medications Name Dose Freq Route DOC Jan THERAPEUTIC EXERCISES MANUAL THERAPY HOT/COLD PACK ELECTRIC STIMULATION UNA Medications Name Dose Freq Route DOC Dec THERAPEUTIC EXERCISES MANUAL THERAPY HOT/COLD PACK ELECTRIC STIMULATION UNA Medications Name Dose Freq Route DOC Dec THERAPEUTIC EXERCISES MANUAL THERAPY HOT/COLD PACK ELECTRIC STIMULATION UNA Medications Name Dose Freq Route DOC Dec THERAPEUTIC EXERCISES MANUAL THERAPY HOT/COLD PACK ELECTRIC STIMULATION UNA Medications Name Dose Freq Route DOC Dec THERAPEUTIC EXERCISES MANUAL THERAPY HOT/COLD PACK ELECTRIC STIMULATION UNA Medications Name Dose Freq Route DOC Dec THERAPEUTIC EXERCISES MANUAL THERAPY HOT/COLD PACK ELECTRIC STIMULATION UNATT Medications Name Dose Freq Route DOC November PT EVALUATION THERAPEUTIC EXERCISES MANUAL THERAPY HOT/COLD PACK ELECTRIC STIMULATION UNATT Mobility: Walking And Moving Limitations -Curent Mobility: Walking And Moving Limitation- Goal Medications Name Dose Freq Route DOC November Pain Assess Positive DOC 2013 BMI High F/U Plan DOC Functional Outcome Assessment documented in the pa Carrying, Moving And Handling Objects-Di scharge PT RE-EVALUATION THERAPEUTIC EXERCISES NEUROMUSCULAR RE-ED FUNC ACTIVITY 15 MIN /COLD PACK ELECTRIC STIMULATION UNA Carrying, Moving And Handling Objects-Cu rrent Carrying, Moving And Handling Objects-Go al THERAPEUTIC EXERCISES NEUROMUSCULAR RE-ED FUNC ACTIVITY 15 MIN HOT/COLD PACK ELECTRIC STIMULATION UNA THERAPEUTIC EXERCISES NEUROMUSCULAR RE-ED MANUAL THERAPY FUNC ACTIVITY 15 MIN HOT/COLD PACK ELECTRIC STIMULATION UNA THERAPEUTIC EXERCISES NEUROMUSCULAR RE-ED MANUAL THERAPY FUNC ACTIVITY 15 MIN HOT/COLD PACK ELECTRIC STIMULATION UNA THERAPEUTIC EXERCISES NEUROMUSCULAR RE-ED MANUAL THERAPY HOT/COLD PACK ELECTRIC STIMULATION UNA THERAPEUTIC EXERCISES NEUROMUSCULAR RE-ED MANUAL THERAPY HOT/COLD PACK ELECTRIC STIMULATION UNA THERAPEUTIC EXERCISES NEUROMUSCULAR RE-ED MANUAL THERAPY HOT/COLD PACK ELECTRIC STIMULATION UNATT THERAPEUTIC EXERCISES NEUROMUSCULAR RE-ED MANUAL THERAPY HOT/COLD PACK ELECTRIC STIMULATION UNATT PT EVALUATION THERAPEUTIC EXERCISES NEUROMUSCULAR RE-ED Carrying, Moving And Handling Objects-Cu rrent Carrying, Moving And Handling Objects-Go al Advance Directives Directive Yes / No Effective Date File Name No Information Encounters Encounter Description Practice Location Reason(s) For Visit Diagnoses Date Provider Providers Copied on Encounter [address], [id number], [phone] [place] No Information 4 Armani Siva. [address] [place] [address], . [phone], [place], [place], [id number], [phone] [place] No Information 4 Armani Siva. [address] [facility], [place], [facility] [address], [place], [facility], . tel:[phone] Referring Provider: [place] [address] [place], [address]. tel:[phone] [address], [place], [place], [id number], tel:[phone] [place] No Information 4 Armani Siva. [address] [facility], [place], [facility] [address] [address], . tel:[phone] Referring Provider: [place] [address] [place], [address]. tel:[phone] [facility] [address] [facility] [address], [place], [id number], tel:[phone] [place] No Information Stephon-1 6-201 4 Armani Siva. [address] [place] [address], [address], [place], [address], [place]. tel:[phone] Referring Provider: [place] Lopez[address] [place] [address], [address]. tel:[phone], [id number], tel:[phone] [place] No Information Stephon-1 2-201 4 Armani Siva. [address] [place] [address], [address], [place], [address], [place]. tel:[phone] Referring Provider: [place] Lopez[address] [place] [address], [address]. tel:[phone], [id number], tel:[phone] [place] No Information Stephon-0 9-201 4 Armani Siva. [address] [place] [address], [address], [place], [address], [place]. tel:[phone] Referring Provider: [place]wn[place] Lopez[address] [place] [address], [address]. tel:[phone], [id number], tel:[phone] [place] No Information Stephon-0 2-201 4 Armani Siva. [address] [place] [address], [address], [place], [address], [place]. tel:[phone] Referring Provider: [place], [address]. tel:[phone], [place], [place], [id number], tel:[phone] [place] No Information May-3 0-201 4 Armani Siva. [address] [place] [address], [address], [place], [facility], . tel: [phone] Referring Provider: [place] [address] [place], [address]. tel:[phone] [place] [address], [id number], tel:[phone] Vasu Cervicalgia May- 4 Armani Siva. [address] [place] [address], [address], [place], [facility], . tel: [phone] Referring Provider: [place] [address] [place], [address]. tel:[phone], [id number], tel:[phone] [place] No Information Mar-3 1-201 4 Armani Siva. [address] [place] [address], [address], [place], [facility], . tel: [phone] Referring Provider: [place] Lopez[address] [place], [address]. tel:[phone] [facility] [address] [place] [address], [id number], [place] tel:[phone] [place] No Information Sep-2 7 4 Armani Siva. [address] [place] [address], [address], [place], [facility], . tel: [phone] Referring Provider: [place] [address] [place], [address]. tel:[phone] [facility] [address] [place] [address], [id number], tel:[phone] [place] No Information Mar-2 4-201 4 Armani Siva. [address] [place] [address], [address], [place], [facility], . tel:[phone] Referring Provider: [place] [facility] [place], [address]. tel:[phone] [facility], [address] [place], [place] [address], [place], [place], [id number], [place] tel:[phone] [place] No Information Mar-2 0-201 4 Armani Siva. [address] [place] [address], [address], [place], [facility], [place]. tel: [phone] Referring Provider: [place] Lopez[address] [place] [address], [address]. tel:[phone] [address], [place], [place], [id number], [place] tel:[phone] [place] No Information Mar-1 7-201 4 Armani Siva. [address] [place] [address], [address], [place], [facility], . tel: [phone] Referring Provider: [place] Lopez[address] [place] [address], [address]. tel:[phone] [address], [place], [place], [id number], [place] tel:[phone] [place] No Information Mar-1 3-201 4 Armani Siva. [address] [place] [address], [address], [place], [facility], [place]. tel: [phone] Referring Provider: [place] [address] [place] [address], [address]. tel:[phone], [place], [place], [id number], [place] tel:[phone] [place] No Information Mar-1 0-201 4 Armani Siva. [address] [place] [address], [address], [address], [place]. tel: [phone] Referring Provider: [place] [address] [place] [address], [address]. tel:[phone] [place] [address], [place], [place], [id number], [place] tel:[phone] [place] No Information Sep-0 7-201 4 Armani Paniagua. [address] [facility], [place], [address], [place], [address], . tel:[phone] Referring Provider: [place] Lopez[address] [place], [address]. tel:[phone] [facility], [address] [facility] [address], [place], [place], [id number], tel:[phone] [place] Lumbago Mar-0 3-201 4 Armani Paniagua. [address] [facility], [place], [address], [place], [address], . [phone] Referring Provider: [place] [address] [place], [address]. tel:[phone] Family History Family Member Type Diagnosis Age At Onset No Information Payers Payer name Insurance type Covered constitution party ID Authorjuliaa fabrice(s) [place] [id number] [facility] [id number] Social History Type Description Quantity Date Captured Comments Sex Female Smoking Status No Information Chief Complaint And Reason For Visit No Information Reason For Referral Reason For Referral No Information History Of Present Illness Encounter Date Complaint History Of Prese nt Illness No Information Functional Status Date Functional Assessmen t No Information Instructions Date Instruction Additional Infor mation No Information Assessments Type Assessment Date No Information Patient Care Teams Name Effective Dates (start - stop) Status Members No Information
[2024-06-22 14:03] LABS: Anion Gap 1 mmol/L (4-12); Blood Urea Nitrogen 13 mg/dL (7-17); Calcium 9.4 mg/dL (8.4-10.2); Carbon Dioxide 33 mmol/L (22-30); Chloride 104 mmol/L (98-107); Estimated Glomerular Filt Rate > 60; Glucose 82 mg/dL (65-110); Potassium 4.5 mmol/L (3.4-5.0); Sodium 138 mmol/L (137-145)
[2024-06-22 18:34] LABS: Creatinine Urine 169.2 mg/dL
[2024-06-22 18:39] LABS: MALB Creatinine Ratio 8.8 mg/g (0-30); Microalbumin Urine Random 14.9 mg/L (0-16.7)
== END 2024-06-22 12:32 | disposition home or self-care (01) ==
LOC: ANHGOSHLAB 12:33
PROVIDERS: PCP Clinical Nurse Specialist; Visit Provider Clinical Nurse Specialist
DX: I10 Essential (primary) hypertension (principal); E11.9 Type 2 diabetes mellitus without complications
CPT/HCPCS: 36415; 80048; 82043; 83036; 84443

== ENCOUNTER 2024-06-27 12:02 | Outpatient (CLI) | payer MEDICARE, SELFPAY ==
[2024-06-27 12:50] LABS: Basophils Absolute Auto 0.1 K/mm3 (0.0-0.1); Basophils Percent Auto 0.7 % (0.2-1.2); Eosinophils Absolute Auto 0.3 K/mm3 (0-0.3); Eosinophils Percent Auto 3.4 % (0-4.4); Hematocrit 42.5 % (37.0-47.0); Hemoglobin 13.7 g/dL (12.0-15.0); Immature Granulocyte Absolute 0.03 K/mm3 (0.00-0.031); Immature Granulocyte Percent A 0.4 % (0-0.5); Lymphocytes Absolute Auto 1.91 K/mm3 (0.9-3.2); Lymphocytes Percent Auto 25.6 % (18.3-44.2); Mean Corpuscular HGB Conc 32.2 g/dl (32-36); Mean Corpuscular Hemoglobin 30.9 pg (26-34); Mean Corpuscular Volume 95.7 fl (80-100); Mean Platelet Volume 9.1 fl (7.4-10.4); Monocytes Absolute Auto 0.5 K/mm3 (0.1-0.6); Monocytes Percent Auto 7.1 % (2.6-8.5); Neutrophils Absolute Auto 4.7 K/mm3 (1.3-6.7); Neutrophils Percent Auto 62.8 % (45.5-73.1); Platelet Count Result 303 k/mm3 (150-375); Red Blood Count 4.44 M/mm3 (4.2-5.4); Red Cell Distribution Width 12.9 % (11.5-14.5); White Blood Count 7.5 K/mm3 (4.5-10.0)
[2024-06-27 12:51] LABS: Alanine Aminotransferase 21 U/L (6-35); Albumin Level 4.4 g/dL (3.5-5.1); Alkaline Phosphatase 74 U/L (38-126); Anion Gap 3 mmol/L (4-12); Aspartate Amino Transferase 26 U/L (14-36); Bilirubin,Total 0.6 mg/dL (0.2-1.3); Blood Urea Nitrogen 11 mg/dL (7-17); Calcium 9.4 mg/dL (8.4-10.2); Carbon Dioxide 33 mmol/L (22-30); Chloride 103 mmol/L (98-107); Estimated Glomerular Filt Rate > 60; Glucose 125 mg/dL (65-110); Potassium 4.1 mmol/L (3.4-5.0); Sodium 139 mmol/L (137-145)
[2024-06-27 13:09] LABS: Free T4 Free Thyroxine 1.29 ng/dL (0.78-2.19)
[2024-06-28 10:44] LABS: Triiodothyronine T3 Free 3.7 pg/mL (2.3-4.2)
== END 2024-06-27 12:03 | disposition home or self-care (01) ==
LOC: ANHLAB 12:03
PROVIDERS: PCP Clinical Nurse Specialist; Visit Provider Internal Medicine Cardiovascular Disease
DX: R00.0 Tachycardia, unspecified (principal); R00.2 Palpitations
CPT/HCPCS: 36415; 80053; 84439; 84443; 84481; 85025

== ENCOUNTER 2024-08-30 00:21 | Day surgery (SDC) | payer MEDICARE, SELFPAY ==
[2024-08-20 14:14] VITALS: BMI 41.3
--- OUTSIDE RECORDS SUMMARY | 2024-08-30 00:23 | XMS_ITS | Referral Summary ---
Author Organization [place] [address] Address [address] [place] [address] Care Team Providers Care Public Works Laborer Name Role Phone Ana Maria Trammell NP Primary Care Provider [phone] Thi Montelongo MD Unavailable [phone] Encounters Date Type Department Care Team Description 08/21/2024 2:00 PM UPHOLSTERY BUNDLER Office Visit [facility] Minimally Invasive Surgery [address] [place] [address] Medical Office Building [address] [place] [address] Aviva Hanley NP Weight loss counseling, encounter for (Primary Dx); Severe obesity (BMI 35.0-39.9) with comorbidity (HCC); Other specified disorders of carbohydrate metabolism (HCC); History of diabetes mellitus, type II 08/20/2024 3:40 PM UPHOLSTERY BUNDLER Ancillary Procedure [facility] 07/25/2024 9:15 AM UPHOLSTERY BUNDLER Office Visit [facility] [address] [place] [address] Vijay Torres MD History of palpitations (Primary Dx); History of tachycardia; Essential hypertension; RBBB; MARIELY (obstructive sleep apnea); Severe obesity (BMI 35.0-39.9) with comorbidity (HCC) 07/24/2024 Orders Only [facility] [facility] Floor [address] [place] [address] Courtney Underwood NP 07/18/2024 1:00 PM UPHOLSTERY BUNDLER - 07/18/2024 11:59 PM UPHOLSTERY BUNDLER Hospital Encounter [facility] [address] [place] [address] MARIELY (obstructive sleep apnea) Discharge Disposition: Discharge to home or self care 07/06/2024 Orders Only [facility] [address] [facility] Floor [address] [place] [address] Courtney Underwood NP Mass of right breast, unspecified quadrant (Primary Dx); Subareolar mass of right breast 07/02/2024 Orders Only [facility] Card[facility] [address] [place] [address] Vijay Torres MD 06/27/2024 11:45 AM UPHOLSTERY BUNDLER Office Visit [facility] Card[facility] [address] [place] [address] Vijay Torres MD Sinus tachycardia (Primary Dx); Palpitations; Essential hypertension; RBBB; Diastolic dysfunction without heart failure; MARIELY (obstructive sleep apnea); Need for lipid screening 06/26/2024 11:15 AM UPHOLSTERY BUNDLER Office Visit [facility] [address] [place] [address] MD MARIELY (obstructive sleep apnea) (Primary Dx); Hypersomnia with sleep apnea; Severe obesity (BMI 35.0-35.9 with comorbidity) ([facility]) from Last 3 Months Allergies Active Allergy Reactions Criticality Noted Date Comments Iodinated Contrast Media Rash Medium 03/05/2021 Iodine And Iodide Containing Products Medications albuterol 2.5 mg /3 mL (0.083 %) nebulizer solution Inhale 3 mL (2.5 mg total) Active clotrimazole-b etamethasone (LOTRISONE) cream Apply topically 2 (two) times a day 4 Active fluticasone propionate (FLONASE) 50 mcg/actuation nasal spray Administer 2 sprays into affected nostril(s) daily 4 Active magnesium oxide 300 mg magnesium tablet Take 1,035 mg by mouth as needed Active cetirizine (ZyrTEC) 10 mg tablet Take 1 tablet (10 mg total) by mouth 2 (two) times a day 4 Active fluticasone propionate (FLOVENT HFA) 220 mcg/actuation inhaler Inhale as needed Act perri albuterol HFA (PROVENTIL HFA,VENTOLIN HFA,PROAIR HFA) 90 mcg/actuation inhaler INHALE 1 PUFF BY MOUTH EVERY 6 HOURS NEEDED FOR BRONCHOSPASM 4 Active melatonin tablet Take 10 mg by mouth nightly Active losartan (COZAAR) 50 mg tablet Take 1 tablet (50 mg total) by mouth nightly Active ibuprofen (ADVIL,MOTRIN) 800 mg tablet Take 1 tablet (800 mg total) by mouth as needed Active vitamin D3-vitamin K2 25 mcg (1,000 unit)-90 mcg tablet,disinte grating Take by mouth Active solriamfetoL (Sunosi) 150 mg tablet Take 1 tablet (150 mg total) by mouth daily 30 tablet [address] (CYMBALTA) 60 mg capsule Take 1 capsule (60 mg total) by mouth daily 4 Active metoprolol XL (TOPROL-XL) 50 mg extended release tablet Take 1 tablet (50 mg total) by mouth daily 30 tablet 11 4 025 Active modafiniL (PROVIGIL) 200 mg tablet Take 1 tablet (200 mg total) by mouth daily 30 tablet 1 4 025 Discontin ued(Patie nt Reported) Active Problems Problem Noted Date Diagnosed Date MARIELY (obstructive sleep apnea) 07/20/2024 Adjustment disorder with mixed anxiety and depre ssed mood 03/31/2021 Scoliosis 02/07/2014 Social History Tobacco Use Types Packs/Day Years Used Date Smoking Tobacco: Former Cigarettes Q uit: 1996 Passive Smoke Exposure: Current Smokeless Tobacco: Never Tobacco Cessation:Counseling Given: Not Answered Alcohol Use Standard Drinks/Week Comments No 0 (1 standard drink = 0.6 oz pur e alcohol) AUDIT-C Answer Date Recorded Q1: How often do you have a drink containing alc ohol? Monthly or less 08/21/2024 Q2: How many drinks containi ng alcohol do you have on a typical day when you are drinking? 1 or 2 08/21/2024 Q3: How often do you have si x or more drinks on one occasion? Never 08/21/2024 Comments No Sex and Gender Information Value Date Recorded Sex Assigned at Not on file Legal Sex Female 9:31 PM UPHOLSTERY BUNDLER Gender Identity Not on file Sexual Orientation Not on file Last Filed Vital Signs Vital Sign Reading Time Taken Comments Blood Pressure 163/101 08/21/2024 1:58 PM UPHOLSTERY BUNDLER Pulse 109 08/21/2024 1:58 PM UPHOLSTERY BUNDLER Temperature - - Respiratory Rate 18 06/26/2024 11:2 0 AM UPHOLSTERY BUNDLER Oxygen Saturation 95% 08/21/2024 1:58 PM UPHOLSTERY BUNDLER Inhaled Oxygen Concentration - - Weight 109.7 kg (241 lb 12.8 oz) 08/21/2024 1:58 PM UPHOLSTERY BUNDLER Height 165 cm (5' 4.96 ) 08/21/2024 2:46 PM UPHOLSTERY BUNDLER Body Mass Index 40.29 08/21/2024 1:58 PM UPHOLSTERY BUNDLER Plan of Treatment Not on file Procedures Procedure Name Priority Date/Time Associated Diagnosis Comments BREAST IMAGING US OUTSIDE REFERENCE Routine 08/20/2024 3:35 PM UPHOLSTERY BUNDLER PORTABLE/HOME SLEEP STUDY Routine 07/19/2024 2:52 PM UPHOLSTERY BUNDLER MARIELY (obstructive sleep apnea) POCT LIPID PANEL Routine 06/27/2024 2:41 PM UPHOLSTERY BUNDLER Need for lipid screening T3, FREE Routine 06/27/2024 Sinus tachycardia Palpitations from Last 3 Months Results * Breast Imaging US Outside Reference (08/20/2024 3:35 PM UPHOLSTERY BUNDLER) Narrative [facility] - 08/20/2024 3:35 PM UPHOLSTERY BUNDLER This order has been auto-finalized and does not contain a result. us Provider Transcribed Order IMG MAMMO PROCEDURES Final Result [facility] * Portable/Home Sleep Study (07/19/2024 2:52 PM UPHOLSTERY BUNDLER) Pipos Rochelle Lane MD - 07/19/2024 2:52 PM UPHOLSTERY BUNDLER Indication for study: Ms. Barrett is a 63-year-old with chief complaints of snoring, unrefreshing sleep and excessive daytime sleepiness. The patient's Ranger Sleepiness scale score is 11 Vital statistics: Age: 63 years BMI: 39.9 Procedure: Unless otherwise noted, respiratory events were scored in accordance with recommended parameters outlined in the AASM Manual for the Scoring of Sleep and Associated Events, Version 2.6 Hypopneas were scored in accordance with acceptable parameters as outline in Chapter IX, Part 1: HSAT utilizing Respiratory Flow and or Effort Parameters, Category H., Section 1b. This study was performed using a [employer] ([employer] apnea Link portable monitoring unit, a type 3 portable monitoring device. Variable monitored included nasal/oral pressure transduced airflow( PTAF), single respiratory effort (thoracic belt), snoring (derived from PTAF sensor) and pulse oximetry. Description of Polysomnography findings: Patient had 8 hours and 8 minutes of monitored time. 7 hours and 28 minutes flow evaluation was present. 7 hours and 53 minutes oxygen saturation analysis was present. The apnea-hypopnea index was 16.9. The AHI was 17 in the supine position. There were 23 obstructive apneas and 103 hypopneas recorded. Baseline oxygen saturation was 94%. Lowest oxygen saturation was 83%. Average oxygen saturation was 91%. There were 130 of episodes of oxygen desaturation recorded. Oxygen desaturation index was 16.5. 21 minutes oxygen saturation less than 88% documented. Pulse evaluation revealed maximum 100 beats per minute, minimum of 64 beats per minute and average of 76 beats per minute Impression: 1. Moderate sleep disorder breathing 2. 21 minutes oxygen saturation less than 80% documented. 3. Consider Positive Airway Pressure (PAP) devices such as continuous PAP (CPAP), auto-adjusting PAP (APAP), and bi-level PAP (Bi-PAP). 4. CPAP titration to determine optimal pressure required to alleviate sleep disordered breathing 5. Sleep hygiene should be reviewed to assess factors that may improve sleep quality. 6. Weight management and regular exercise should be initiated or continued 7. Avoid alcohol sedatives and other [employer] PRESIDENT PAYMENT depression that may worsen sleep apnea and disrupt normal sleep architecture 8. Patients with sleep apnea may have significant daytime hypersomnolence. If that is the case, driving or handling heavy machinery should be avoided until the apnea and excessive sleepiness have resolved. Limitations of the study: 1. A sleep EEG was not recorded; therefore, the actual amount of time spent in sleep, stages of sleep and respiratory events associated with arousals cannot be determined by this study. 2. All indexes are computed against monitoring time, not total sleep time. For this reason, the degree of severity may be underestimated 3. The severity of the sleep apnea may vary from night to night depending on body position during sleep, REM sleep and sleep efficiency. These factors should be taken into consideration. Narrative Rochelle Lane MD - 07/19/2024 2:52 PM UPHOLSTERY BUNDLER Ocst is ready for review Rochelle Lane MD SLEEP CENTER ORDERABLES Final Re sult * POCT lipid panel (06/27/2024 2:41 PM UPHOLSTERY BUNDLER) Cholesterol, POC 208 mg/dL Comment:GLU = 193 HDL, POC 77 mg/dL Triglycerides, POC 139 mg/dL LDL Cholesterol POC 102 mg/dL Chol/HDL Ratio, POC 1.3 Non-HDL Cholesterol, POC 130 mg/dL Cholesterol Total, POC 208 mg/dL Capillary blood 06/27/2024 2 :41 PM UPHOLSTERY BUNDLER Vijay Torres MD POINT OF CARE TEST ORDERABLES Fi nal Result * T3, free (06/27/2024) Blood 06/27/2024 Vijay Torres MD LAB BLOOD ORDERABLES Final Resul t EXTERNAL LAB from Last 3 Months Insurance T MEDICARE GOLD [facility] MEDICARE GOLD Care Teams Public Works Laborer Relationship Specialty Start Date End Date Ana Maria Trammell NP [address] [place], [place] [id number] PCP - General Cardiovascular Disease 11/29/23 Thi Montelongo MD [address] [address] Referring Physician Gynecology 07/05/24
--- OUTSIDE RECORDS SUMMARY | 2024-08-30 00:23 | XMS_ITS | Patient Health Summary ---
Author Organization [facility] Address [address] [place] [address] Care Team Providers Care Engine Manager Name Role Phone Sidney Crawford MD Primary Care Provider [phone] Note from [facility],non-owned Affiliates and Associated Physician Practices is amultiple site organization consisting of ambulatory clinics and hospital sitesin [place], [place], [place] and [place]. This disclosure is being madepursuant to the Care Everywhere program and may not contain all information available regarding this patient. Last updated 18.[facility] Allergies * Contrast-Iodinated Agents For Ct/Other(Skin Reactions) Medications * Be aware that medications may not be up to date on this document. Alwaysverify current medications with the patient. * DULoxetine (Cymbalta) 30 MG capsule Take 1 (one) capsule by mouth once daily * fluticasone hfa 220 (Flovent HFA 220) 220 MCG/ACT inhaler Inhale by mouth as needed * omeprazole EC (PriLOSEC OTC) 20 MG tablet Take 1 (one) tablet by mouth at bedtime * losartan (Cozaar) 50 MG tablet Take 1 (one) tablet by mouth at bedtime * clotrimazole-betamethasone (Lotrisone) 1-0.05 % cream Apply to affected area as needed 10 mg cream * melatonin 3 MG tablet Take 10 mg by mouth at bedtime * calcium-vitamin D (Os-Gallo 500 + D) 500-200 mg-unit tablet Take 5,000 (five thousand) tablets by mouth once daily * magnesium 30 MG tablet Take 34.5 (thirty four and one-half) tablets by mouth as needed * potassium phosphate monobasic (K-Phos Original) 500 MG tablet Take 99 mg by mouth 4 times daily with meals * ibuprofen (Motrin) 800 MG tablet Take 1 (one) tablet by mouth as needed for Pain * cetirizine (ZyrTEC) 10 MG tablet(Started 12/21/2023) Take 1 (one) tablet by mouth 2 times daily 11 refills by 12/20/2024 * fluticasone propionate (Flonase) 50 MCG/ACT nasal spray(Started 12/21/2023) [place] 2 (two) sprays into each nostril once daily 11 refills by 12/20/2024 * fluticasone-salmeterol (Advair Diskus) 250-50 MCG/ACT inhaler(Started 12/21/2023) Inhale 1 (one) puff by mouth 2 times daily 11 refills by 12/20/2024 * albuterol HFA (Proventil; Ventolin; Proair) 108 (90 Base) MCG/ACT inhaler (Started 12/21/2023) Inhale 2 (two) puffs by mouth every 6 hours as needed (per an asthma action plan) 11 refills by 12/20/2024 Active Problems Problem Noted Date Diagnosed Date Other biomechanical lesions of lumbar region Other specified postprocedural states 07/09/2015 Other intervertebral disc degeneration, lumbar r egion 05/14/2015 Scoliosis 02/07/2014 Spinal stenosis of lumbar re gion without neurogenic claudication 02/07/2014 Social History Tobacco Use Types Packs/Day Years Used Date Smoking Tobacco: Former Cigarettes Q uit: 07/11/1997 Smokeless Tobacco: Never Alcohol Use Standard Drinks/Week Comments Yes 0 (1 standard drink = 0.6 oz pur e alcohol) PHQ-2 Answer Date Recorded Patient Health Questionnaire-2 Score 6 12/21/2023 Sex and Gender Information Value Date Recorded Sex Assigned at Not on file Gender Identity Not on file Sexual Orientation Not on file Last Filed Vital Signs Vital Sign Reading Time Taken Comments Blood Pressure 133/82 12/21/2023 1:55 PM CDT Pulse 111 12/21/2023 1:55 PM CDT Temperature 36.5 C (97.7 F) 12/21/2023 1:55 PM CDT Respiratory Rate 16 06/23/2015 4:20 PM WOODWORK SALVAGE INSPECTOR Oxygen Saturation 91% 12/21/2023 1:55 PM CDT Inhaled Oxygen Concentration - - Weight 106.1 kg (233 lb 12.8 oz) 12/21/2023 1:55 PM CDT Height 165.1 cm (5' 5 ) 12/21/2023 1:55 PM CDT Body Mass Index 38.91 12/21/2023 1:55 PM CDT Procedures * XR SKULL TO ANKLE CHON(Performed 03/05/2021) Performed for Other intervertebral disc degeneration, lumbar region * XR LUMBAR SPINE 2 OR 3VW(Performed 09/03/2015) * XR SCOLIOSIS 1VW(Performed 07/09/2015) * FL MIGDALIA SURGERY(Performed 06/23/2015) * TYPE + SCREEN PANEL(Performed 06/23/2015) * HEMOGLOBIN A1C(Performed 06/10/2015) * BASIC METABOLIC PANEL (CALCIUM TOTAL)(Performed 06/10/2015) * URINALYSIS REFLEX TO MICROSCOPIC NO CULTURE(Performed 06/10/2015) * CBC W AUTO DIFFERENTIAL(Performed 06/10/2015) * CBC W AUTO DIFFERENTIAL(Performed 06/10/2015) * XR CHEST 2VW(Performed 06/10/2015) * EKG 12-LEAD(Performed 06/10/2015) * MRI LUMBAR SPINE WO CONTRAST(Performed 05/08/2015) * MRI THORACIC SPINE WO CONTRAST(Performed 05/08/2015) * XR SCOLIOSIS 1VW(Performed 04/18/2015) * XR CERVICAL SPINE 2 OR 3VW(Performed 03/10/2015) * XR LUMBAR SPINE 2 OR 3VW(Performed 03/10/2015) * HCG URINE QUALITATIVE - POCT (IP) [facility](Performed 02/11/2014) * CT LUMBAR SPINE W CONTRAST(Performed 02/11/2014) * FL MYELOGRAM LUMBAR(Performed 02/11/2014) * XR LUMBAR SPINE 2 OR 3VW(Performed 07/23/2013) Results * XR SKULL TO ANKLE CHON (03/05/2021 11:04 AM CDT) Anatomical Region Laterality Modality Radiographic Maci ging 03/05/2021 12:4 8 PM CDT Impressions 03/05/2021 12:51 PM CDT Impression: Unchanged moderate severe thoracolumbar dextrorotatory scoliosis. This report was electronically signed by AMINAT OTERO on 03/05/2021 12:51 PM . Narrative 03/05/2021 12:51 PM CDT Examination: XR SKULL TO ANKLE CHON History: M51.36: Other intervertebral disc degeneration, lumbar region Findings:Comparison to 07/09/2015. There has been no substantial change in moderate to severe levorotatory thoracolumbar scoliosis with apex in the upper lumbar spine. There are 11 rib-bearing thoracic vertebral bodies and 6 nonrib-bearing lumbar vertebral bodies. There is unchanged focal kyphosis at the thoracolumbar junction. There is moderate to severe multilevel degenerative disc disease of the lumbar spine. There is mild left inferior pelvic tilt. No coronal or sagittal imbalance. There are postsurgical changes of gastric banding. Procedure Note Aminta Otero MD - 03/05/2021 Examination: XR SKULL TO ANKLE CHON History: M51.36: Other intervertebral disc degeneration, lumbar region Findings:Comparison to 07/09/2015. There has been no substantial change in moderate to severe levorotatory thoracolumbar scoliosis with apex in the upper lumbar spine. There are11 rib-bearing thoracic vertebral bodies and 6 nonrib-bearing lumbar vertebral bodies. There is unchanged focal kyphosis at the thoracolumbar junction. There is moderate to severe multilevel degenerative discdisease of the lumbar spine. There is mild left inferior pelvic tilt. No coronal or sagittal imbalance. There are postsurgical changes of gastricbanding. Impression: Unchanged moderate severe thoracolumbar dextrorotatory scoliosis. This report was electronically signed by AMINTA OTERO on 03/05/2021 12:51 PM . Han Spring MD DIAGNOSTIC IMAGING O RDERABLES * XR LUMBAR SPINE 2 OR 3VW (09/03/2015 8:23 AM WOODWORK SALVAGE INSPECTOR) Only the most recent of3 resultswithin the time period is included. Anatomical Region Laterality Modality Spine Other Impressions 09/03/2015 11:21 AM WOODWORK SALVAGE INSPECTOR Impression: Moderate to severe lumbar levoscoliosis and degenerative disc and joint disease, unchanged. Report dictated by Master Castillo MD (residential fee appraiser). This report was approved by Master Castillo M.D. on 09/03/2015 9:[address] PABLO Rabago M.D. have personally reviewed and interpreted this examination/study. This report was electronically signed by PABLO ALONSO M.D. on 09/03/2015 11:21 AM . Narrative 09/03/2015 11:21 AM WOODWORK SALVAGE INSPECTOR Exam: Lumbar spine, 2 views Date: 09/03/2015 History: follow up Comparison: 03/10/15 Findings: There is moderate to severe lumbar levoscoliosis centered at L2-3 level, unchanged in appearance. There is moderate severe multilevel lumbar degenerative disc and joint disease, unchanged. A gastric band, tubing, and port are noted. No acute fracture is seen. Procedure Note Pablo Alonso MD - 10/08/2017 Exam: Lumbar spine, 2 views Date: 09/03/2015 History: follow up Comparison: 03/10/15 Findings: There is moderate to severe lumbar levoscoliosis centered at L2-3 level,unchanged in appearance. There is moderate severe multilevel lumbardegenerative disc and joint disease, unchanged. A gastric band, tubing,and port are noted. No acute fracture is seen. IMPRESSION Impression: Moderate to severe lumbar levoscoliosis and degenerative disc and jointdisease, unchanged. Report dictated by Master Castillo MD (residential fee appraiser). This report was approved by Master Castillo M.D. on 09/03/2015 9:[address] PABLO Rabago M.D. have personally reviewed and interpreted thisexamination/study. This report was electronically signed by PABLO ALONSO M.D. on09/03/2015 11:21 AM . Soto De Oliveira MD DIAGNOSTIC IMAGING O RDERABLES * XR SCOLIOSIS 1VW (07/09/2015 9:18 AM WOODWORK SALVAGE INSPECTOR) Only the most recent of2 resultswithin the time period is included. Anatomical Region Laterality Modality Spine Other Impressions 07/09/2015 12:15 PM WOODWORK SALVAGE INSPECTOR Impression: Moderate to severe thoracolumbar scoliosis, unchanged. Report dictated by Sunday Robledo MD (resident). This report was approved by Sunday Robledo on 07/09/2015 11:34 AM . Hima, Dr. PABLO ALONSO M.D. have personally reviewed and interpreted this examination/study. This report was electronically signed by PABLO ALONSO M.D. on 07/09/2015 12:15 PM . Narrative 07/09/2015 12:15 PM WOODWORK SALVAGE INSPECTOR Exam: Scoliosis Study History: 54-year-old male with scoliosis. Comparison: Scoliosis series dated 04/18/2015. Findings: 11 rib-bearing thoracic vertebral bodies are seen. 6 nonrib-bearing lumbar vertebrae are present. There is unchanged moderate to severe thoracolumbar levoscoliosis with a lesser degree of lower thoracic dextroscoliosis. Focal kyphosis is again seen at the thoracolumbar junction. Moderate to severe degenerative disc and joint disease is seen in the lumbar spine. Mild right higher than left pelvic tilt is unchanged. There is no coronal or sagittal imbalance. Gastric band tubing overlies the abdomen, unchanged. Surgical skin reno overlie the right abdomen. Procedure Note Pablo Alonso MD - 10/08/2017 Exam: Scoliosis Study History: 54-year-old male with scoliosis. Comparison: Scoliosis series dated 04/18/2015. Findings: 11 rib-bearing thoracic vertebral bodies are seen. 6 nonrib-bearing lumbarvertebrae are present. There is unchanged moderate to severethoracolumbar levoscoliosis with a lesser degree of lower thoracicdextroscoliosis. Focal kyphosis is again seen at the thoracolumbar junction. Moderate to severe degenerative disc and jointdisease is seen in the lumbar spine. Mild right higher than left pelvictilt is unchanged. There is no coronal or sagittal imbalance. Gastric band tubing overlies the abdomen, unchanged. Surgical skin staplesoverlie the right abdomen. IMPRESSION Impression: Moderate to severe thoracolumbar scoliosis, unchanged. Report dictated by Sunday Robledo MD (resident). This report was approved by Sunday Robledo on 07/09/2015 11:[address] PABLO Rabago M.D. have personally reviewed and interpreted thisexamination/study. This report was electronically signed by PABLO ALONSO M.D. on07/09/2015 12:15 PM . Soto De Oliveira MD DIAGNOSTIC IMAGING O RDERABLES * FL MIGDALIA SURGERY (06/23/2015 2:38 PM WOODWORK SALVAGE INSPECTOR) Anatomical Region Laterality Modality Other Narrative 06/23/2015 2:38 PM WOODWORK SALVAGE INSPECTOR Fluoroscopy was used for this exam. Please see the Operative report. Procedure Note ProviderVonda MD - 10/08/2017 Fluoroscopy was used for this exam. Please see the Operative report. Soto De Oliveira MD FLUOROSCOPY ORDERABL ES * TYPE + SCREEN PANEL (06/23/2015 12:25 PM WOODWORK SALVAGE INSPECTOR) Typem A POS [facility] Antibody Screen NEG [facility] Blood specimen (specimen) 06/23/2015 12:25 PM WOODWORK SALVAGE INSPECTOR 06/23/2015 12:42 PM WOODWORK SALVAGE INSPECTOR Soto De Oliveira MD LAB - BLOOD BANK ORD ERABLES [facility] [address] [place] [address], [facility] * HEMOGLOBIN A1C (06/10/2015 4:15 PM WOODWORK SALVAGE INSPECTOR) Hemoglobin A1c 5.5 4.4 - 6.3 % [facility] Estimated Average Glucose 111 mg/dL [facility] Comment: HbA1c Interpretation: Treatment target values recommended by ADA and other clinical organizations should be used to evaluate metabolic control in patients. Treatment Target Values: Normal : < 5.7% Pre-diabetes: 5.7-6.4% Diabetes: Equal to or greater than 6.5% Reference: [place] [employer] Standards of Care in Diabetes -2014 In patients 70 years and older consider HbA1c target range of 7.0-7.5% Reference: Diabetes Mellitus in Older People: Position Statement on behalf of the International Association of Gerontology and Geriatrics (IAGG), the Diabetes Working Libertarian for Older People (EDWPOP), and the International Task Force of Experts in Diabetes. Carlin Mays et al. J [place] [employer] Association. 2012 Test results diagnostic of diabetes should be repeated for confirmation. The Tosoh G8 assay for the measurement of HbA1c is a National Glycohemoglobin Standardization Program (NGSP)certified method. Results for patients with HbE disease should be interpreted with caution as this hemoglobinopathy has been shown to interfere with the Tosoh G8 assay. Blood specimen (specimen) BLOOD SPECIMEN / Unknown 06/10/2015 4:15 PM WOODWORK SALVAGE INSPECTOR 06/10/2015 4:36 PM WOODWORK SALVAGE INSPECTOR Aldair Dunlap DO LAB - CHEMISTRY ORD ERABLES [facility] [address] [place] [address] * (ABNORMAL) URINALYSIS REFLEX TO MICROSCOPIC NO CULTURE (06/10/2015 11:49 AM WOODWORK SALVAGE INSPECTOR) Color UA Yellow Straw, Yellow, Colorless, Light Yellow [facility] Clarity UA Hazy(A) Clear [facility] Specific Lynn UA 1.017 1.001 - 1.030 [facility] pH UA 5.5 5.0 - 8.0 [facility] Protein UA Negative <=20 mg/dL [facility] Glucose UA 50(A) Negative mg/dL [facility] Ketone UA Negative Negative mg/dL [facility] Bilirubin UA Negative Negative mg/dL [facility] Blood UA Negative Negative [facility] Nitrite UA Negative Negative [facility] Leukocyte Esterase Negative Negative [facility] Urobilinogen UA <2.0 <2.0 mg/dL [facility] RBC UA 4 0 - 8 /HPF [facility] WBC UA <1 0 - 2 /HPF [facility] Bacteria UA Rare Rare, Occasional, None /HPF [facility] Squamous Epithelial Cells UA 1 0 - 1 /HPF [facility] Mucus UA Few(A) None /LPF [facility] Urine specimen (specimen) URINE SPECIMEN OBTAINED BY CLEAN CATCH PROCEDURE / Unknown 06/10/2015 11:49 AM WOODWORK SALVAGE INSPECTOR 06/10/2015 12:36 PM WOODWORK SALVAGE INSPECTOR Soto De Oliveira MD LAB - URINALYSIS ORD ERABLES [facility] [address] [phone] * (ABNORMAL) CBC W AUTO DIFFERENTIAL (06/10/2015 11:49 AM WOODWORK SALVAGE INSPECTOR) Only the most recent of2 resultswithin the time period is included. WBC 8.3 3.5 - 10.5 10 3/uL [facility] RBC 4.51 3.90 - 5.00 10 6/uL [facility] Hemoglobin 14.0 12.0 - 15.5 g/dL [facility] Hematocrit 41.2 35.0 - 45.0 % [facility] MCV 91.4 81.0 - 97.0 fL [facility] MCH 31.0 28.0 - 34.0 pg [facility] MCHC 34.0 32.0 - 36.0 g/dL [facility] Platelet Count 364 150 - 400 10 3/uL [facility] RDW-SD 42.7 36.0 - 50.0 fL [facility] RDW-CV 12.7 11.2 - 14.8 % [facility] MPV 9.7 9.3 - 12.8 fL [facility] Neutrophils % 45.6 35.0 - 70.0 % [facility] Lymphocytes % 41.1 19.7 - 55.1 % [facility] Monocytes % 9.4 3.0 - 15.0 % [facility] Eosinophils % 3.3 0.0 - 6.0 % [facility] Basophil % 0.6 0.0 - 1.5 % [facility] Neutrophils Absolute 3.8 1.6 - 7.0 10 3/uL [facility] Lymphocyte Absolute 3.4(H) 0.8 - 2.9 10 3/uL [facility] Monocytes Absolute 0.78(H) 0.14 - 0.66 10 3/uL [facility] Eosinophils Absolute 0.27(H) 0.00 - 0.22 10 3/uL [facility] Basophils Absolute 0.05 0.00 - 0.06 10 3/uL [facility] Immature Granulocytes % 0.1 0.0 - 1.0 % [facility] Blood specimen (specimen) BLOOD SPECIMEN / Unknown 06/10/2015 11:49 AM WOODWORK SALVAGE INSPECTOR 06/10/2015 12:36 PM WOODWORK SALVAGE INSPECTOR Soto De Oliveira MD LAB - HEMATOLOGY ORD ERABLES Performing Organization Address [facility]/ZIP Co de Phone Number [address] [phone] * BASIC METABOLIC PANEL (CALCIUM TOTAL) (06/10/2015 11:49 AM WOODWORK SALVAGE INSPECTOR) BUN 13 7 - 26 mg/dL [facility] Creatinine 0.9 0.6 - 1.2 mg/dL [facility] Sodium 141 136 - 145 mmol/L [facility] Potassium 3.8 3.5 - 4.5 mmol/L [facility] Chloride 102 98 - 107 mmol/L [facility] CO2 28 22 - 29 mmol/L [facility] Glucose 86 70 - 115 mg/dL [facility] Calcium 9.5 8.4 - 10.2 mg/dL [facility] Anion Gap 15 8 - 18 [facility] BUN/Creatinine Ratio 14 7 - 23 [facility] Osmolality Calculated 277 270 - 300 mOsm/kg [facility] eGFR >60 >60 mL/min/1.7 3 m2 [facility] Blood specimen (specimen) BLOOD SPECIMEN / Unknown 06/10/2015 11:49 AM WOODWORK SALVAGE INSPECTOR 06/10/2015 12:36 PM WOODWORK SALVAGE INSPECTOR Soto De Oliveira MD LAB - CHEMISTRY ORDMati LEWIS Performing Organization Address [facility] Co de Phone Number [address] [phone] * XR CHEST 2VW (06/10/2015 11:48 AM WOODWORK SALVAGE INSPECTOR) Anatomical Region Laterality Modality Chest Other Impressions 06/10/2015 3:12 PM WOODWORK SALVAGE INSPECTOR Impression: No acute pulmonary disease. Report dictated by Master Castillo MD (residential fee appraiser). This report was approved by Master Castillo M.D. on 06/10/2015 2:25 PM . I, Dr. ZARINA FUNES M.D. have personally reviewed and interpreted this examination/study. This report was electronically signed by ZARINA FUNES M.D. on 06/10/2015 3:12 PM . Narrative 06/10/2015 3:12 PM WOODWORK SALVAGE INSPECTOR Exam: Chest X-ray, 2 views Date: 06/10/2015 History: Pre-Op Testing Comparison: None available Findings: There is no focal consolidation, pleural effusion, or pneumothorax. The cardiomediastinal silhouette is normal. The visible bony thorax is intact. Procedure Note Zarina Funes MD - 10/08/2017 Exam: Chest X-ray, 2 views Date: 06/10/2015 History: Pre-Op Testing Comparison: None available Findings: There is no focal consolidation, pleural effusion, or pneumothorax. Thecardiomediastinal silhouette is normal. The visible bony thorax isintact. IMPRESSION Impression: No acute pulmonary disease. Report dictated by Master Castillo MD (residential fee appraiser). This report was approved by Master Castillo M.D. on 06/10/2015 2:25 PM . I, Dr. ZARINA FUNES M.D. have personally reviewed and interpreted thisexamination/study. This report was electronically signed by ZARINA FUNES M.D. on 06/10/20153:12 PM . Soto De Oliveira MD DIAGNOSTIC IMAGING O RDERABLES * EKG 12-LEAD (06/10/2015 12:00 AM WOODWORK SALVAGE INSPECTOR) 06/10/2015 Nadya Thomas MD ECG ORDERABLES [facility] RADIOLOGY * MRI LUMBAR SPINE WO CONTRAST (05/08/2015 5:28 PM CDT) Anatomical Region Laterality Modality Spine Other Impressions 05/09/2015 11:18 AM CDT IMPRESSION: 1. Severe lumbar levoscoliosis centered at the L2-3 level as well as multilevel lumbar degenerative disc and joint disease as described above resulting in severe left neural foraminal stenoses at the L5-S1 and S1-S2 levels. 2. No spinal canal stenosis or neural foraminal stenosis in the thoracic spine. 3. Partially imaged cervical degenerative disc disease at the C5-6 and C6-7 levels resulting in at least moderate spinal canal stenosis with spinal cord compression. This report was approved by Eren Guzman M.D. on 05/09/2015 8:50 AM . I, Dr. ZE CHAUDHARI M.D. have personally reviewed and interpreted this examination/study. This report was electronically signed by ZE CHAUDHARI M.D. on 05/09/2015 11:18 AM . Narrative 05/09/2015 11:18 AM CDT EXAMINATION: Magnetic resonance imaging (MRI) of the thoracic and lumbar spine without contrast HISTORY: Scoliosis with back and leg pain TECHNIQUE: MRI of the thoracic and lumbar spine was performed without contrast according to standard protocol. FINDINGS: Comparison is made to CT lumbar spine myelogram dated 02/11/2014. There are 11 rib-bearing thoracic vertebrae and 6 [id number] vertebrae. These mbv-[id number] vertebrae will be referred to as L1 Through L5 with a lumbarized S1. This numbering scheme is similar to prior studies. On the sagittal T2 oil refinery operator images, there is moderate degenerative disc disease at the C5-C6 and C6-C7 levels and thickening of the posterior longitudinal ligament resulting in at least moderate central canal stenosis at these levels with spinal cord compression as well as gentle cervical kyphosis. Thoracic spine: There is mild lower thoracic dextroscoliosis centered at the T8-T9 level. Vertebral bodies are normal in height without evidence of segmentation anomalies. Marrow signal intensity is normal. The spinal cord appears normal. There is minimal thoracic degenerative disc disease with mild left paracentral disc protrusions at the T6-T7 and T7-T8 levels. No central canal stenosis is seen. There is severe left facet osteoarthritis at the T6-T7, T7-T8, and T8-T9 levels. No neural foraminal stenosis is seen. No soft tissue abnormality is identified. Lumbar spine: There is severe lumbar levoscoliosis centered at the L2-L3 levels with mild compensatory dextroscoliosis at L5-S1. Vertebral bodies are normal in height without evidence of segmentation anomalies. There are Modic 2 endplate changes at the L2-L3, L4-L5, and L5-S1 levels on the left. The marrow signal intensity is otherwise normal. The conus medullaris is at the level of L1 and the distal spinal cord appears normal. There is multilevel degenerative disc disease. No soft tissue abnormality is identified. L1-L2: There is no disc bulge. There is no central canal stenosis. There is mild bilateral facet osteoarthritis. There is no neural foraminal stenosis. L2-L3: There is no disc bulge. There is no central canal stenosis. There is mild bilateral facet osteoarthritis. There is no neural foraminal stenosis. L3-L4: There is a posterior disc osteophyte complex. There is mild central canal stenosis. There is moderate bilateral facet osteoarthritis. There is no neural foraminal stenosis. L4-L5: There is mild diffuse disc bulge with a superimposed left paracentral/sub-foraminal disc extrusion. There is mild central canal stenosis. There is moderate bilateral facet osteoarthritis. There is mild to moderate left neural foraminal stenosis. L5-S1: There is mild diffuse disc bulge with a superimposed left sub-foraminal/extraforaminal disc osteophyte complex. There is mild central canal stenosis. There is mild bilateral facet osteoarthritis with ligamentum flavum hypertrophy. There is moderate left lateral recess stenosis. There is severe left neural foraminal stenosis. S1-S2: There is mild diffuse disc bulge with a superimposed left sub-foraminal/extraforaminal disc osteophyte complex. There is no central canal stenosis. There is moderate left and mild right facet osteoarthritis. There is severe left neural foraminal stenosis. Procedure Note Ze Chaudhari MD - 10/08/2017 EXAMINATION: Magnetic resonance imaging (MRI) of the thoracic and lumbarspine without contrast HISTORY: Scoliosis with back and leg pain TECHNIQUE: MRI of the thoracic and lumbar spine was performed withoutcontrast according to standard protocol. FINDINGS: Comparison is made to CT lumbar spine myelogram dated02/11/2014. There are 11 rib-bearing thoracic vertebrae and 6 jeg-obb-pzzzlbrnnrjudhvu. These tfk-qrk-oykruua vertebrae will be referred to as R1Pmofhjf L5 with a lumbarized S1. This numbering scheme is similar to priorstudies. On the sagittal T2 oil refinery operator images, there is moderate degenerative discdisease at the C5-C6 and C6-C7 levels and thickening of the posteriorlongitudinal ligament resulting in at least moderate central canalstenosis at these levels with spinal cord compression as well as gentle cervical kyphosis. Thoracic spine: There is mild lower thoracic dextroscoliosis centered at the T8-T9 level.Vertebral bodies are normal in height without evidence of segmentationanomalies. Marrow signal intensity is normal. The spinal cord appearsnormal. There is minimal thoracic degenerative disc disease with mild leftparacentral disc protrusions at the T6-T7 and T7-T8 levels. No centralcanal stenosis is seen. There is severe left facet osteoarthritis at theT6-T7, T7-T8, and T8-T9 levels. No neural foraminal stenosis is seen. No soft tissue abnormality is identified. Lumbar spine: There is severe lumbar levoscoliosis centered at the L2-L3 levels withmild compensatory dextroscoliosis at L5-S1. Vertebral bodies are normal inheight without evidence of segmentation anomalies. There are Modic 2endplate changes at the L2- L3, L4-L5, and L5-S1 levels on the left. The marrow signal intensity is otherwise normal. The conus medullaris isat the level of L1 and the distal spinal cord appears normal. There ismultilevel degenerative disc disease. No soft tissue abnormality isidentified. L1-L2: There is no disc bulge. There is no central canal stenosis. Thereis mild bilateral facet osteoarthritis. There is no neural foraminalstenosis. L2-L3: There is no disc bulge. There is no central canal stenosis. Thereis mild bilateral facet osteoarthritis. There is no neural foraminalstenosis. L3-L4: There is a posterior disc osteophyte complex. There is mild centralcanal stenosis. There is moderate bilateral facet osteoarthritis. There isno neural foraminal stenosis. L4-L5: There is mild diffuse disc bulge with a superimposed leftparacentral/sub-foraminal disc extrusion. There is mild central canalstenosis. There is moderate bilateral facet osteoarthritis. There is mildto moderate left neural foraminal stenosis. L5-S1: There is mild diffuse disc bulge with a superimposed leftsub-foraminal/extraforaminal disc osteophyte complex. There is mildcentral canal stenosis. There is mild bilateral facet osteoarthritis withligamentum flavum hypertrophy. There is moderate left lateral recess stenosis. There is severe left neuralforaminal stenosis. S1-S2: There is mild diffuse disc bulge with a superimposed leftsub-foraminal/extraforaminal disc osteophyte complex. There is no centralcanal stenosis. There is moderate left and mild right facetosteoarthritis. There is severe left neural foraminal stenosis. IMPRESSION IMPRESSION: 1. Severe lumbar levoscoliosis centered at the L2-3 level as well asmultilevel lumbar degenerative disc and joint disease as described aboveresulting in severe left neural foraminal stenoses at the L5-S1 and S1-E3nlilwk. 2. No spinal canal stenosis or neural foraminal stenosis in the thoracicspine. 3. Partially imaged cervical degenerative disc disease at the C5-6 andC6-7 levels resulting in at least moderate spinal canal stenosis withspinal cord compression. This report was approved by Eren Guzman M.D. on 05/09/2015 8:[address] ZE Rabago M.D. have personally reviewed and interpreted thisexamination/study. This report was electronically signed by ZE CHAUDHARI M.D. on 05/09/201511:18 AM . Soto De Oliveira MD MR ORDERABLES * MRI THORACIC SPINE WO CONTRAST (05/08/2015 5:24 PM CDT) Anatomical Region Laterality Modality Chest Other Impressions 05/09/2015 11:18 AM CDT IMPRESSION: 1. Severe lumbar levoscoliosis centered at the L2-3 level as well as multilevel lumbar degenerative disc and joint disease as described above resulting in severe left neural foraminal stenoses at the L5-S1 and S1-S2 levels. 2. No spinal canal stenosis or neural foraminal stenosis in the thoracic spine. 3. Partially imaged cervical degenerative disc disease at the C5-6 and C6-7 levels resulting in at least moderate spinal canal stenosis with spinal cord compression. This report was approved by Eren Guzman M.D. on 05/09/2015 8:[address] ZE Rabago M.D. have personally reviewed and interpreted this examination/study. This report was electronically signed by ZE CHAUDHARI M.D. on 05/09/2015 11:18 AM . Narrative 05/09/2015 11:18 AM CDT EXAMINATION: Magnetic resonance imaging (MRI) of the thoracic and lumbar spine without contrast HISTORY: Scoliosis with back and leg pain TECHNIQUE: MRI of the thoracic and lumbar spine was performed without contrast according to standard protocol. FINDINGS: Comparison is made to CT lumbar spine myelogram dated 02/11/2014. There are 11 rib-bearing thoracic vertebrae and 6 zul-vuu-bqegakg vertebrae. These rql-sub-wnetmvw vertebrae will be referred to as L1 Through L5 with a lumbarized S1. This numbering scheme is similar to prior studies. On the sagittal T2 oil refinery operator images, there is moderate degenerative disc disease at the C5-C6 and C6-C7 levels and thickening of the posterior longitudinal ligament resulting in at least moderate central canal stenosis at these levels with spinal cord compression as well as gentle cervical kyphosis. Thoracic spine: There is mild lower thoracic dextroscoliosis centered at the T8-T9 level. Vertebral bodies are normal in height without evidence of segmentation anomalies. Marrow signal intensity is normal. The spinal cord appears normal. There is minimal thoracic degenerative disc disease with mild left paracentral disc protrusions at the T6-T7 and T7-T8 levels. No central canal stenosis is seen. There is severe left facet osteoarthritis at the T6-T7, T7-T8, and T8-T9 levels. No neural foraminal stenosis is seen. No soft tissue abnormality is identified. Lumbar spine: There is severe lumbar levoscoliosis centered at the L2-L3 levels with mild compensatory dextroscoliosis at L5-S1. Vertebral bodies are normal in height without evidence of segmentation anomalies. There are Modic 2 endplate changes at the L2-L3, L4-L5, and L5-S1 levels on the left. The marrow signal intensity is otherwise normal. The conus medullaris is at the level of L1 and the distal spinal cord appears normal. There is multilevel degenerative disc disease. No soft tissue abnormality is identified. L1-L2: There is no disc bulge. There is no central canal stenosis. There is mild bilateral facet osteoarthritis. There is no neural foraminal stenosis. L2-L3: There is no disc bulge. There is no central canal stenosis. There is mild bilateral facet osteoarthritis. There is no neural foraminal stenosis. L3-L4: There is a posterior disc osteophyte complex. There is mild central canal stenosis. There is moderate bilateral facet osteoarthritis. There is no neural foraminal stenosis. L4-L5: There is mild diffuse disc bulge with a superimposed left paracentral/sub-foraminal disc extrusion. There is mild central canal stenosis. There is moderate bilateral facet osteoarthritis. There is mild to moderate left neural foraminal stenosis. L5-S1: There is mild diffuse disc bulge with a superimposed left sub-foraminal/extraforaminal disc osteophyte complex. There is mild central canal stenosis. There is mild bilateral facet osteoarthritis with ligamentum flavum hypertrophy. There is moderate left lateral recess stenosis. There is severe left neural foraminal stenosis. S1-S2: There is mild diffuse disc bulge with a superimposed left sub-foraminal/extraforaminal disc osteophyte complex. There is no central canal stenosis. There is moderate left and mild right facet osteoarthritis. There is severe left neural foraminal stenosis. Procedure Note Ze Chaudhari MD - 10/08/2017 EXAMINATION: Magnetic resonance imaging (MRI) of the thoracic and lumbarspine without contrast HISTORY: Scoliosis with back and leg pain TECHNIQUE: MRI of the thoracic and lumbar spine was performed withoutcontrast according to standard protocol. FINDINGS: Comparison is made to CT lumbar spine myelogram dated02/11/2014. There are 11 rib-bearing thoracic vertebrae and 6 syg-uua-ugagajsusvkydpcf. These qcs-ylo-puswfep vertebrae will be referred to as [id number] L5 with a lumbarized S1. This numbering scheme is similar to priorstudies. On the sagittal T2 oil refinery operator images, there is moderate degenerative discdisease at the C5-C6 and C6-C7 levels and thickening of the posteriorlongitudinal ligament resulting in at least moderate central canalstenosis at these levels with spinal cord compression as well as gentle cervical kyphosis. Thoracic spine: There is mild lower thoracic dextroscoliosis centered at the T8-T9 level.Vertebral bodies are normal in height without evidence of segmentationanomalies. Marrow signal intensity is normal. The spinal cord appearsnormal. There is minimal thoracic degenerative disc disease with mild leftparacentral disc protrusions at the T6-T7 and T7-T8 levels. No centralcanal stenosis is seen. There is severe left facet osteoarthritis at theT6-T7, T7-T8, and T8-T9 levels. No neural foraminal stenosis is seen. No soft tissue abnormality is identified. Lumbar spine: There is severe lumbar levoscoliosis centered at the L2-L3 levels withmild compensatory dextroscoliosis at L5-S1. Vertebral bodies are normal inheight without evidence of segmentation anomalies. There are Modic 2endplate changes at the L2- L3, L4-L5, and L5-S1 levels on the left. The marrow signal intensity is otherwise normal. The conus medullaris isat the level of L1 and the distal spinal cord appears normal. There ismultilevel degenerative disc disease. No soft tissue abnormality isidentified. L1-L2: There is no disc bulge. There is no central canal stenosis. Thereis mild bilateral facet osteoarthritis. There is no neural foraminalstenosis. L2-L3: There is no disc bulge. There is no central canal stenosis. Thereis mild bilateral facet osteoarthritis. There is no neural foraminalstenosis. L3-L4: There is a posterior disc osteophyte complex. There is mild centralcanal stenosis. There is moderate bilateral facet osteoarthritis. There isno neural foraminal stenosis. L4-L5: There is mild diffuse disc bulge with a superimposed leftparacentral/sub-foraminal disc extrusion. There is mild central canalstenosis. There is moderate bilateral facet osteoarthritis. There is mildto moderate left neural foraminal stenosis. L5-S1: There is mild diffuse disc bulge with a superimposed leftsub-foraminal/extraforaminal disc osteophyte complex. There is mildcentral canal stenosis. There is mild bilateral facet osteoarthritis withligamentum flavum hypertrophy. There is moderate left lateral recess stenosis. There is severe left neuralforaminal stenosis. S1-S2: There is mild diffuse disc bulge with a superimposed leftsub-foraminal/extraforaminal disc osteophyte complex. There is no centralcanal stenosis. There is moderate left and mild right facetosteoarthritis. There is severe left neural foraminal stenosis. IMPRESSION IMPRESSION: 1. Severe lumbar levoscoliosis centered at the L2-3 level as well asmultilevel lumbar degenerative disc and joint disease as described aboveresulting in severe left neural foraminal stenoses at the L5-S1 and S1-D7thwpbg. 2. No spinal canal stenosis or neural foraminal stenosis in the thoracicspine. 3. Partially imaged cervical degenerative disc disease at the C5-6 andC6-7 levels resulting in at least moderate spinal canal stenosis withspinal cord compression. This report was approved by Eren Guzman M.D. on 05/09/2015 8:50 AM. I, Dr. ZE CHAUDHARI M.D. have personally reviewed and interpreted thisexamination/study. This report was electronically signed by ZE CHAUDHARI M.D. on 05/09/201511:18 AM . Soto De Oliveira MD MR ORDERABLES * XR CERVICAL SPINE 2 OR 3VW (03/10/2015 2:48 PM CDT) Anatomical Region Laterality Modality Spine Other Impressions 03/10/2015 5:46 PM CDT Impression: Degenerative disc disease at C5-6 and C6-7, progressed since 2007. This report was electronically signed by MARCUS GALINDO MD on 03/10/2015 5:46 PM . Narrative 03/10/2015 5:46 PM CDT Exam: XR SPINE CERVICAL 2 OR 3 VIEWS History: chronic pain Comparison: 02/19/2008 Findings: The cervical lordosis is reversed. There is moderate to severe degenerative disc disease at C5-6 and moderate degenerative disc disease at C6-7, intervally progressed. Uncovertebral and facet degeneration is present at these levels. There is no fracture or subluxation. Bone mineralization is normal. Procedure Note Marcus Galindo MD - 10/08/2017 Exam: XR SPINE CERVICAL 2 OR 3 VIEWS History: chronic pain Comparison: 02/19/2008 Findings: The cervical lordosis is reversed. There is moderate to severedegenerative disc disease at C5-6 and moderate degenerative disc diseaseat C6-7, intervally progressed. Uncovertebral and facet degeneration ispresent at these levels. There is no fracture or subluxation. Bone mineralization is normal. IMPRESSION Impression: Degenerative disc disease at C5-6 and C6-7, progressed [id number]. This report was electronically signed by MARCUS GALINDO MD on 03/10/20155:46 PM . Han Spring MD DIAGNOSTIC IMAGING O RDERABLES * HCG URINE QUALITATIVE - POCT (IP) [facility] [address] (02/11/2014 2:57 PM CDT) NEGATIVE [facility] [address] RALS (BEAKER) Comment:On Air Director: LORI ROBBINS 02/11/2014 2:57 PM CDT Han Spring MD LAB - POINT OF CARE ORDERABLES MEKA AGUIRRE) * CT LUMBAR SPINE W CONTRAST (02/11/2014 11:28 AM CDT) Anatomical Region Laterality Modality Spine Other Impressions 02/11/2014 3:08 PM CDT IMPRESSION: 1. Epidural injection limits evaluation of the spinal cord and nerve roots. There are 6 nonrib-bearing vertebral bodies; for the purposes of this report, these will be referred to as L1 through L5 with a lumbarized S1. There is severe lumbar levoscoliosis centered at L2-L3 with compensatory dextroscoliosis centered at L5-S1. There is associated multilevel degenerative disc and joint disease causing up to moderate central canal stenosis at L3-4 and L4-5. Facet osteoarthritis and osteophyte formation results in moderate right neural foraminal stenosis at L2-3 and moderate to severe right neuroforaminal stenosis at L3-4 as well as owusjzix-md-xgvubh left neural foraminal stenosis at L5-S1 and S1-2. 2. Bilateral adnexal cysts, measuring up to 5.2 cm on the left. Pelvic ultrasound is recommended for further evaluation. A voicemail was left describing the above findings including predominantly epidural injection for Dr. Saw Wong's nurse, by Dr. Mati Chaudhari at 1:15 PM on 02/11/2014. This report was approved by Joanna Chaudhari M.D. on 02/11/2014 1:17 PM . I, Dr. LEE SCALES M.D. have personally reviewed and interpreted this examination/study. This report was electronically signed by LEE SCALES M.D. on 02/11/2014 3:08 PM . Narrative 02/11/2014 3:08 PM CDT EXAMINATION: 1. Lumbar puncture (LP) under fluoroscopic guidance for lumbar myelogram 2. Computed tomography (CT) of the lumbar spine with contrast HISTORY: 53-year-old woman with chronic lower back pain and pain radiating to the bilateral lower extremities, left greater than right. TECHNIQUE: The risks and benefits of the lumbar puncture and myelography including, but not limited to, infection, bleeding, seizure, epidural hematoma, post spinal headache, cerebrospinal fluid (CSF) leak requiring blood patch procedure, nausea, vomiting, irritation or damage to nerves causing pain or permanent injury were discussed with with the patient. After alternatives were discussed and the opportunity to ask questions was provided, the patient acknowledged understanding, gave verbal and written consent, and wished to proceed. Attending physician: Dr. Scales was present for the silva portions of this procedure. The S1-2 level was localized with fluoroscopy. The skin overlying this level was then sterilely prepped, draped, and infiltrated with 1% lidocaine for local anesthesia. Under intermittent fluoroscopic guidance, a 22 gauge 5 inch spinal needle was inserted into the thecal sac at this level and 15 ml of Omnipaque (180 mg Iodine per milliliter) was instilled. Prone, lateral, and oblique fluoroscopic images of the lumbar spine were obtained and then the patient was taken to the CT scanner where CT of the lumbar spine was performed. The patient tolerated the procedure well. The patient was then transferred to the date night caregiver unit for further observation and 3 of bedrest. FLUOROSCOPY TIME: 127 seconds. FINDINGS: Correlation is made with radiographs of the lumbar spine dated 07/23/2013. No prior CT is available for comparison. Fluoroscopic findings are fully characterized on the subsequently performed CT. Please see the report below for further details. There are 6 nonrib-bearing vertebral bodies. For the purposes of this report, these will be referred to as L1 through L5 with a lumbarized S1. CT demonstrates the injected contrast to be predominantly within the epidural space with a small amount of contrast in the subarachnoid space at the S1-S2 level. There is severe lumbar levoscoliosis centered at L2-L3 with compensatory dextroscoliosis centered at L5-S1. Left lateral translation of the L3 vertebral body with respect to L4 measures 7 mm. Large right lateral osteophytes are seen from L1-2 through L3-4. The alignment is otherwise normal. Vertebral bodies are normal in height without evidence of compression fractures. There is multilevel degenerative disc disease throughout the lumbar spine. The conus medullaris is not well-visualized due to the predominantly epidural injection of contrast. There is a 5.2 x 4.7 cm left adnexal cyst as well as a 3.5 x 2.7 cm right adnexal cyst. Postoperative appearance of gastric bypass is partially imaged. Contrast opacifies the bilateral renal collecting systems and ureters. L1-2: There is mild disc bulge. Epidural contrast is seen along the left aspect of the central canal with the thecal sac deviated to the right. There is no central canal stenosis. There is mild bilateral facet osteoarthritis. There is no neural foraminal stenosis. L2-3: There is mild disc bulge with calcification of the intervertebral disc. Epidural contrast is seen along the left aspect of the central canal with the thecal sac deviated to the right. There is no central canal stenosis. There is mild bilateral facet osteoarthritis. There is moderate right neural foraminal stenosis related to a large right lateral osteophyte. There is no neural foraminal stenosis on the left. L3-4: There is mild disc bulge with calcification of the intervertebral disc. There is moderate central canal stenosis. There is mild right and moderate left facet osteoarthritis. There is pyjdzesc-po-ylwvqb right neural foraminal stenosis. There is no neural foraminal stenosis on the left. L4-5: There is diffuse disc bulge with focal central protrusion. Ligamentum flavum hypertrophy is present. There is moderate central canal stenosis. There is mild bilateral facet osteoarthritis. There is no neural foraminal stenosis. L5-S1: There is diffuse disc bulge. There is sydx-ya-jbiunkwe central canal stenosis. There is mild right and moderate left bilateral facet osteoarthritis. There is no right neural foraminal stenosis but there is iqnttzna-cb-vbwioa left neural foraminal stenosis. S1-2: There is diffuse disc bulge. There is moderate central canal stenosis. There is mild right and moderate left facet osteoarthritis. There is no right neural foraminal stenosis but there is minwokym-yq-wgkoxa left neural foraminal stenosis. Procedure Note Lee Scales MD - 10/08/2017 EXAMINATION: 1. Lumbar puncture (LP) under fluoroscopic guidance for lumbar myelogram 2. Computed tomography (CT) of the lumbar spine with contrast HISTORY: 53-year-old woman with chronic lower back pain and pain radiatingto the bilateral lower extremities, left greater than right. TECHNIQUE: The risks and benefits of the lumbar puncture and myelographyincluding, but not limited to, infection, bleeding, seizure, epiduralhematoma, post spinal headache, cerebrospinal fluid (CSF) leak requiringblood patch procedure, nausea, vomiting, irritation or damage to nerves causing pain or permanent injurywere discussed with with the patient. After alternatives were discussedand the opportunity to ask questions was provided, the patientacknowledged understanding, gave verbal and written consent, and wished to proceed. Attending physician: Dr. Scales was present for the silva portions of thisprocedure. The S1-2 level was localized with fluoroscopy. The skin overlying thislevel was then sterilely prepped, draped, and infiltrated with 1%lidocaine for local anesthesia. Under intermittent fluoroscopic guidance,a 22 gauge 5 inch spinal needle was inserted into the thecal sac at this level and 15 ml of Omnipaque (180 mgIodine per milliliter) was instilled. Prone, lateral, and obliquefluoroscopic images of the lumbar spine were obtained and then the patientwas taken to the CT scanner where CT of the lumbar spine was performed. The patient tolerated the procedure well.The patient was then transferred to the date night caregiver unit for furtherobservation and 3 of bedrest. FLUOROSCOPY TIME: 127 seconds. FINDINGS: Correlation is made with radiographs of the lumbar spine date07/23/2013. No prior CT is available for comparison. Fluoroscopic findings are fully characterized on the subsequentlyperformed CT. Please see the report below for further details. There are 6nonrib-bearing vertebral bodies. For the purposes of this report, thesewill be referred to as L1 through L5 with a lumbarized S1. CT demonstrates the injected contrast to be predominantly within theepidural space with a small amount of contrast in the subarachnoid spaceat the S1-S2 level. There is severe lumbar levoscoliosis centered at L2-L3 with compensatorydextroscoliosis centered at L5-S1. Left lateral translation of the I0uzxqkflyg body with respect to L4 measures 7 mm. Large right lateralosteophytes are seen from L1-2 through L3-4. The alignment is otherwise normal. Vertebral bodies are normal inheight without evidence of compression fractures. There is multileveldegenerative disc disease throughout the lumbar spine. The conusmedullaris is not well-visualized due to the predominantly epidural injection of contrast. There is a 5.2 x 4.7 cm leftadnexal cyst as well as a 3.5 x 2.7 cm right adnexal cyst. Postoperativeappearance of gastric bypass is partially imaged. Contrast opacifies thebilateral renal collecting systems and ureters. L1-2: There is mild disc bulge. Epidural contrast is seen along the leftaspect of the central canal with the thecal sac deviated to the right.There is no central canal stenosis. There is mild bilateral facetosteoarthritis. There is no neural foraminal stenosis. L2-3: There is mild disc bulge with calcification of the intervertebraldisc. Epidural contrast is seen along the left aspect of the central canalwith the thecal sac deviated to the right. There is no central canalstenosis. There is mild bilateral facet osteoarthritis. There is moderate right neural foraminal stenosisrelated to a large right lateral osteophyte. There is no neural foraminalstenosis on the left. L3-4: There is mild disc bulge with calcification of the intervertebraldisc. There is moderate central canal stenosis. There is mild right andmoderate left facet osteoarthritis. There is xqzlmdyi-wn-gofkpx rightneural foraminal stenosis. There is no neural foraminal stenosis on the left. L4-5: There is diffuse disc bulge with focal central protrusion.Ligamentum flavum hypertrophy is present. There is moderate central canalstenosis. There is mild bilateral facet osteoarthritis. There is no neuralforaminal stenosis. L5-S1: There is diffuse disc bulge. There is oswc-ii-mjzbpdlw centralcanal stenosis. There is mild right and moderate left bilateral facetosteoarthritis. There is no right neural foraminal stenosis but there jttavqhfga-yg-zdxtpz left neural foraminal stenosis. S1-2: There is diffuse disc bulge. There is moderate central canalstenosis. There is mild right and moderate left facet osteoarthritis.There is no right neural foraminal stenosis but there splcngskdc-yu-zwmncr left neural foraminal stenosis. IMPRESSION IMPRESSION: 1. Epidural injection limits evaluation of the spinal cord and nerveroots. There are 6 nonrib-bearing vertebral bodies; for the purposes ofthis report, these will be referred to as L1 through L5 with a lumbarizedS1. There is severe lumbar levoscoliosis centered at L2-L3 with compensatory dextroscoliosis centeredat L5- S1. There is associated multilevel degenerative disc and jointdisease causing up to moderate central canal stenosis at L3-4 and L4-5.Facet osteoarthritis and osteophyte formation results in moderate right neural foraminal stenosis at L2-3 andmoderate to severe right neuroforaminal stenosis at L3-4 as well hhldoldgcc-jx-vahrob left neural foraminal stenosis at L5-S1 and S1-2. 2. Bilateral adnexal cysts, measuring up to 5.2 cm on the left. Pelvicultrasound is recommended for further evaluation. A voicemail was left describing the above findings including predominantlyepidural injection for Dr. Saw Wong's nurse, by Dr. Mati Chaudhari at 1:15 PMon 02/11/2014. This report was approved by Joanna Chaudhari M.D. on 02/11/2014 1:[address] LEE Rabago M.D. have personally reviewed and interpreted thisexamination/study. This report was electronically signed by LEE SCALES M.D. on 02/11/20143:08 PM . Han Spring MD CT ORDERABLES * FL MYELOGRAM LUMBAR (02/11/2014 11:00 AM CDT) Anatomical Region Laterality Modality Spine Other Impressions 02/11/2014 3:08 PM CDT IMPRESSION: 1. Epidural injection limits evaluation of the spinal cord and nerve roots. There are 6 nonrib-bearing vertebral bodies; for the purposes of this report, these will be referred to as L1 through L5 with a lumbarized S1. There is severe lumbar levoscoliosis centered at L2-L3 with compensatory dextroscoliosis centered at L5-S1. There is associated multilevel degenerative disc and joint disease causing up to moderate central canal stenosis at L3-4 and L4-5. Facet osteoarthritis and osteophyte formation results in moderate right neural foraminal stenosis at L2-3 and moderate to severe right neuroforaminal stenosis at L3-4 as well as lnrkbyov-ot-kgpqbr left neural foraminal stenosis at L5-S1 and S1-2. 2. Bilateral adnexal cysts, measuring up to 5.2 cm on the left. Pelvic ultrasound is recommended for further evaluation. A voicemail was left describing the above findings including predominantly epidural injection for Dr. Saw Wong's nurse, by Dr. Mati Chauhdari at 1:15 PM on 02/11/2014. This report was approved by Joanna Chaudhari M.D. on 02/11/2014 1:[address] LEE Rabago M.D. have personally reviewed and interpreted this examination/study. This report was electronically signed by LEE SCALES M.D. on 02/11/2014 3:08 PM . Narrative 02/11/2014 3:08 PM CDT EXAMINATION: 1. Lumbar puncture (LP) under fluoroscopic guidance for lumbar myelogram 2. Computed tomography (CT) of the lumbar spine with contrast HISTORY: 53-year-old woman with chronic lower back pain and pain radiating to the bilateral lower extremities, left greater than right. TECHNIQUE: The risks and benefits of the lumbar puncture and myelography including, but not limited to, infection, bleeding, seizure, epidural hematoma, post spinal headache, cerebrospinal fluid (CSF) leak requiring blood patch procedure, nausea, vomiting, irritation or damage to nerves causing pain or permanent injury were discussed with with the patient. After alternatives were discussed and the opportunity to ask questions was provided, the patient acknowledged understanding, gave verbal and written consent, and wished to proceed. Attending physician: Dr. Scales was present for the silva portions of this procedure. The S1-2 level was localized with fluoroscopy. The skin overlying this level was then sterilely prepped, draped, and infiltrated with 1% lidocaine for local anesthesia. Under intermittent fluoroscopic guidance, a 22 gauge 5 inch spinal needle was inserted into the thecal sac at this level and 15 ml of Omnipaque (180 mg Iodine per milliliter) was instilled. Prone, lateral, and oblique fluoroscopic images of the lumbar spine were obtained and then the patient was taken to the CT scanner where CT of the lumbar spine was performed. The patient tolerated the procedure well. The patient was then transferred to the date night caregiver unit for further observation and 3 of bedrest. FLUOROSCOPY TIME: 127 seconds. FINDINGS: Correlation is made with radiographs of the lumbar spine dated 07/23/2013. No prior CT is available for comparison. Fluoroscopic findings are fully characterized on the subsequently performed CT. Please see the report below for further details. There are 6 nonrib-bearing vertebral bodies. For the purposes of this report, these will be referred to as L1 through L5 with a lumbarized S1. CT demonstrates the injected contrast to be predominantly within the epidural space with a small amount of contrast in the subarachnoid space at the S1-S2 level. There is severe lumbar levoscoliosis centered at L2-L3 with compensatory dextroscoliosis centered at L5-S1. Left lateral translation of the L3 vertebral body with respect to L4 measures 7 mm. Large right lateral osteophytes are seen from L1-2 through L3-4. The alignment is otherwise normal. Vertebral bodies are normal in height without evidence of compression fractures. There is multilevel degenerative disc disease throughout the lumbar spine. The conus medullaris is not well-visualized due to the predominantly epidural injection of contrast. There is a 5.2 x 4.7 cm left adnexal cyst as well as a 3.5 x 2.7 cm right adnexal cyst. Postoperative appearance of gastric bypass is partially imaged. Contrast opacifies the bilateral renal collecting systems and ureters. L1-2: There is mild disc bulge. Epidural contrast is seen along the left aspect of the central canal with the thecal sac deviated to the right. There is no central canal stenosis. There is mild bilateral facet osteoarthritis. There is no neural foraminal stenosis. L2-3: There is mild disc bulge with calcification of the intervertebral disc. Epidural contrast is seen along the left aspect of the central canal with the thecal sac deviated to the right. There is no central canal stenosis. There is mild bilateral facet osteoarthritis. There is moderate right neural foraminal stenosis related to a large right lateral osteophyte. There is no neural foraminal stenosis on the left. L3-4: There is mild disc bulge with calcification of the intervertebral disc. There is moderate central canal stenosis. There is mild right and moderate left facet osteoarthritis. There is lcyrbgcy-pm-csauvt right neural foraminal stenosis. There is no neural foraminal stenosis on the left. L4-5: There is diffuse disc bulge with focal central protrusion. Ligamentum flavum hypertrophy is present. There is moderate central canal stenosis. There is mild bilateral facet osteoarthritis. There is no neural foraminal stenosis. L5-S1: There is diffuse disc bulge. There is fafw-cn-cmllfhvq central canal stenosis. There is mild right and moderate left bilateral facet osteoarthritis. There is no right neural foraminal stenosis but there is gnrstpkl-zh-ultrbx left neural foraminal stenosis. S1-2: There is diffuse disc bulge. There is moderate central canal stenosis. There is mild right and moderate left facet osteoarthritis. There is no right neural foraminal stenosis but there is azegxjnq-vh-vqaohb left neural foraminal stenosis. Procedure Note Lee Scales MD - 10/08/2017 EXAMINATION: 1. Lumbar puncture (LP) under fluoroscopic guidance for lumbar myelogram 2. Computed tomography (CT) of the lumbar spine with contrast HISTORY: 53-year-old woman with chronic lower back pain and pain radiatingto the bilateral lower extremities, left greater than right. TECHNIQUE: The risks and benefits of the lumbar puncture and myelographyincluding, but not limited to, infection, bleeding, seizure, epiduralhematoma, post spinal headache, cerebrospinal fluid (CSF) leak requiringblood patch procedure, nausea, vomiting, irritation or damage to nerves causing pain or permanent injurywere discussed with with the patient. After alternatives were discussedand the opportunity to ask questions was provided, the patientacknowledged understanding, gave verbal and written consent, and wished to proceed. Attending physician: Dr. Scales was present for the silva portions of thisprocedure. The S1-2 level was localized with fluoroscopy. The skin overlying thislevel was then sterilely prepped, draped, and infiltrated with 1%lidocaine for local anesthesia. Under intermittent fluoroscopic guidance,a 22 gauge 5 inch spinal needle was inserted into the thecal sac at this level and 15 ml of Omnipaque (180 mgIodine per milliliter) was instilled. Prone, lateral, and obliquefluoroscopic images of the lumbar spine were obtained and then the patientwas taken to the CT scanner where CT of the lumbar spine was performed. The patient tolerated the procedure well.The patient was then transferred to the date night caregiver unit for furtherobservation and 3 of bedrest. FLUOROSCOPY TIME: 127 seconds. FINDINGS: Correlation is made with radiographs of the lumbar spine date07/23/2013. No prior CT is available for comparison. Fluoroscopic findings are fully characterized on the subsequentlyperformed CT. Please see the report below for further details. There are 6nonrib-bearing vertebral bodies. For the purposes of this report, thesewill be referred to as L1 through L5 with a lumbarized S1. CT demonstrates the injected contrast to be predominantly within theepidural space with a small amount of contrast in the subarachnoid spaceat the S1-S2 level. There is severe lumbar levoscoliosis centered at L2-L3 with compensatorydextroscoliosis centered at L5-S1. Left lateral translation of the P8knvqufpmm body with respect to L4 measures 7 mm. Large right lateralosteophytes are seen from L1-2 through L3-4. The alignment is otherwise normal. Vertebral bodies are normal inheight without evidence of compression fractures. There is multileveldegenerative disc disease throughout the lumbar spine. The conusmedullaris is not well-visualized due to the predominantly epidural injection of contrast. There is a 5.2 x 4.7 cm leftadnexal cyst as well as a 3.5 x 2.7 cm right adnexal cyst. Postoperativeappearance of gastric bypass is partially imaged. Contrast opacifies thebilateral renal collecting systems and ureters. L1-2: There is mild disc bulge. Epidural contrast is seen along the leftaspect of the central canal with the thecal sac deviated to the right.There is no central canal stenosis. There is mild bilateral facetosteoarthritis. There is no neural foraminal stenosis. L2-3: There is mild disc bulge with calcification of the intervertebraldisc. Epidural contrast is seen along the left aspect of the central canalwith the thecal sac deviated to the right. There is no central canalstenosis. There is mild bilateral facet osteoarthritis. There is moderate right neural foraminal stenosisrelated to a large right lateral osteophyte. There is no neural foraminalstenosis on the left. L3-4: There is mild disc bulge with calcification of the intervertebraldisc. There is moderate central canal stenosis. There is mild right andmoderate left facet osteoarthritis. There is iwnwfdjg-ia-hwdcfo rightneural foraminal stenosis. There is no neural foraminal stenosis on the left. L4-5: There is diffuse disc bulge with focal central protrusion.Ligamentum flavum hypertrophy is present. There is moderate central canalstenosis. There is mild bilateral facet osteoarthritis. There is no neuralforaminal stenosis. L5-S1: There is diffuse disc bulge. There is hraj-xr-rdseaneu centralcanal stenosis. There is mild right and moderate left bilateral facetosteoarthritis. There is no right neural foraminal stenosis but there zwugqqtrbg-bc-abnkuq left neural foraminal stenosis. S1-2: There is diffuse disc bulge. There is moderate central canalstenosis. There is mild right and moderate left facet osteoarthritis.There is no right neural foraminal stenosis but there jvxaznxmqx-fz-wmgokm left neural foraminal stenosis. IMPRESSION IMPRESSION: 1. Epidural injection limits evaluation of the spinal cord and nerveroots. There are 6 nonrib-bearing vertebral bodies; for the purposes ofthis report, these will be referred to as L1 through L5 with a lumbarizedS1. There is severe lumbar levoscoliosis centered at L2-L3 with compensatory dextroscoliosis centeredat L5- S1. There is associated multilevel degenerative disc and jointdisease causing up to moderate central canal stenosis at L3-4 and L4-5.Facet osteoarthritis and osteophyte formation results in moderate right neural foraminal stenosis at L2-3 andmoderate to severe right neuroforaminal stenosis at L3-4 as well nhmywjwbux-ub-jlyhhd left neural foraminal stenosis at L5-S1 and S1-2. 2. Bilateral adnexal cysts, measuring up to 5.2 cm on the left. Pelvicultrasound is recommended for further evaluation. A voicemail was left describing the above findings including predominantlyepidural injection for Dr. Saw Wong's nurse, by Dr. Mati Chaudhari at 1:15 PMon 02/11/2014. This report was approved by Joanna Chaudhari M.D. on 02/11/2014 1:17 PM . I, Dr. LEE SCALES M.D. have personally reviewed and interpreted thisexamination/study. This report was electronically signed by LEE SCALES M.D. on 02/11/20143:08 PM . Han Spring MD FLUOROSCOPY ORDERABL ES Care Teams Engine Manager Relationship Specialty Start Date End Date Sidney Crawford MD [address] [place] [address] [address] [place] [phone] PCP - General 01/26/21
--- OUTSIDE RECORDS SUMMARY | 2024-08-30 00:23 | XMS_ITS | Referral Summary ---
Author Organization [facility] Address [address] [place] [address] Care Team Providers Care Talent Analyst Name Role Phone Sidney Crawford MD Primary Care Provider [phone] Source Comments [facility],non-owned Affiliates and Associated Physician Practices is amultiple site organization consisting of ambulatory clinics and hospital sitesin [place], [place], [place] and [place]. This disclosure is being madepursuant to the Care Everywhere program and may not contain all information available regarding this patient. Last updated 18.[facility] Allergies Active Allergy Reactions Criticality Noted Date Comments Contrast-Iodinated Agents For Ct/Other Skin Reactions 03/05/2021 Medications * Be aware that medications may not be up to date on this document. Alwaysverify current medications with the patient. Medication Sig Dispensed Refills Start Date End Date Status DULoxetine (Cymbalta) 30 MG capsule Take 1 (one) capsule by mouth once daily Active fluticasone hfa 220 (Flovent HFA 220) 220 MCG/ACT inhaler Inhale by mouth as needed Active omeprazole EC (PriLOSEC OTC) 20 MG tablet Take 1 (one) tablet by mouth at bedtime Active losartan (Cozaar) 50 MG tablet Take 1 (one) tablet by mouth at bedtime Active clotrimazole-betamet hasone (Lotrisone) 1-0.05 % cream Apply to affected area as needed 10 mg cream Active melatonin 3 MG tablet Take 10 mg by mouth at bedtime Active calcium-vitamin D (Os-Gallo 500 + D) 500-200 mg-unit tablet Take 5,000 (five thousand) tablets by mouth once daily Active magnesium 30 MG tablet Take 34.5 (thirty four and one-half) tablets by mouth as needed Active potassium phosphate monobasic (K-Phos Original) 500 MG tablet Take 99 mg by mouth 4 times daily with meals Active ibuprofen (Motrin) 800 MG tablet Take 1 (one) tablet by mouth as needed for Pain Active cetirizine (ZyrTEC) 10 MG tablet Take 1 (one) tablet by mouth 2 times daily 60 tablet 11 12/21/2023 Active fluticasone propionate (Flonase) 50 MCG/ACT nasal spray [place] 2 (two) sprays into each nostril once daily 16 g 12/21/2023 Active fluticasone-salmeter ol (Advair Diskus) 250-50 MCG/ACT inhaler Inhale 1 (one) puff by mouth 2 times daily 180 Each 12/21/2023 Active albuterol HFA (Proventil; Ventolin; Proair) 108 (90 Base) MCG/ACT inhaler Inhale 2 (two) puffs by mouth every 6 hours as needed (per an asthma action plan) 18 g 12/21/2023 Active Active Problems Problem Noted Date Diagnosed Date [...] CDT Respiratory Rate 16 06/23/2015 4: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 Oxygen Saturation 91% 12/21/2023 1:55 PM CDT Inhaled Oxygen Concentration - - Weight 106.1 kg (233 lb 12.8 oz) 12/21/2023 1:55 PM CDT Height 165.1 cm (5' 5 ) 12/21/2023 1:55 PM CDT Body Mass Index 38.91 12/21/2023 1:55 PM CDT Plan of Treatment Not on file Procedures Procedure Name Priority Date/Time Associated Diagnosis Comments BASIC METABOLIC PANEL (CALCIUM TOTAL) Routine 06/10/2015 11:49 AM TUFT MACHINE OPERATOR from Last 3 Months or Most Recently Relevant to Health Maintenance Results * BASIC METABOLIC PANEL (CALCIUM TOTAL) (06/10/2015 11:49 AM TUFT MACHINE OPERATOR) BUN 13 7 - 26 mg/dL [facility] Creatinine 0.9 0.6 - 1.2 mg/dL [facility] Sodium 141 136 - 145 mmol/L [facility] Potassium 3.8 3.5 - 4.5 mmol/L [facility] Chloride 102 98 - 107 mmol/L [facility] CO2 28 22 - 29 mmol/L [facility] Glucose 86 70 - 115 mg/dL [facility] Calcium 9.5 8.4 - 10.2 mg/dL [facility] Anion Gap 15 8 - 18 [facility] BUN/Creatinine Ratio 14 7 - 23 [facility] Osmolality Calculated 277 270 - 300 mOsm/kg [facility] eGFR >60 >60 mL/min/1.7 3 m2 [facility] Blood specimen (specimen) BLOOD SPECIMEN / Unknown 06/10/2015 11:49 AM TUFT MACHINE OPERATOR 06/10/2015 12:36 PM TUFT MACHINE OPERATOR Soto De Oliveira MD LAB - CHEMISTRY [facility] Organization Address City/State/ZIP Co de Phone Number [address] [phone] from Last 3 Months or Most Recently Relevant to Health Maintenance Care Teams Talent Analyst Relationship Specialty Start Date End Date Sidney Crawford MD [address] [place] [phone] PCP - General 01/26/21
--- OUTSIDE RECORDS SUMMARY | 2024-08-30 00:23 | XMS_ITS | Clinical Summary ---
Author Organization [facility] Address [address] [place] [phone] Care Team Providers Care Dictaphone Transcriber Name Role Phone Sidney Crawford MD Primary Care Provider [phone] Allergies No known active allergies Medications albuterol (PROVENTIL, VENTOLIN) (2.5 MG/3ML) 0.083% Nebulizer Soln 2.5 mg by Nebulization route. Active ALBUTEROL SULFATE HFA IN take by inhalation. Active Fluticasone-Jas meterol (Advair HFA) 115-21 MCG/ACT Aerosol take 2 Puffs by inhalation every 12 hours. Active amoxicillin-cla vulanate (AUGMENTIN) 875-125 MG Tablet amoxicillin 875 mg-potassium clavulanate 125 mg tablet Active Active Problems Problem Noted Date Diagnosed Date Adjustment disorder with mixed anxiety and depre ssed mood 03/31/2021 Family History Medical History Relation Name Comments Heart Attack Father Lung Cancer Father Diabetes Maternal Aunt Heart Attack Paternal Uncle Depression Sister Diabetes Sister Bipolar Disorder Son Relation Name Status Comments Father Maternal Aunt Paternal Uncle Sister Son Other Social History Tobacco Use Types Packs/Day Years Used Date Smoking Tobacco: Former Smokeless Tobacco: Never Alcohol Use Standard Drinks/Week Comments Not Currently 0 (1 standard drink = 0.6 oz pur e alcohol) PHQ-2 Answer Date Recorded Total Score - Questions 1-9 1 03/12 Sexually Active Control Partners Comments Yes Male Comments Unknown Sex and Gender Information Value Date Recorded Sex Assigned at Not on file Legal Sex 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 Gender Identity Not on file Sexual Orientation Not on file Last Filed Vital Signs Vital Sign Reading Time Taken Comments Blood Pressure 130/78 03/03/2021 1:32 PM CDT Pulse 99 03/03/2021 1:32 PM CDT Temperature 36.3 C (97.3 F) 03/03/2021 1:32 PM CDT Respiratory Rate - - Oxygen Saturation 90% 03/03/2021 1:32 PM CDT Inhaled Oxygen Concentration - - Weight 109.3 kg (241 lb) 03/03/2021 1:32 PM CDT Height 165.1 cm (5' 5 ) 03/03/2021 1:32 PM CDT Body Mass Index 40.1 03/03/2021 1:32 PM CDT Plan of Treatment Health Maintenance Due Date Last Done Comments Hepatitis C Virus (HCV) Screening 1962 TdaP Immunization 1962 Colonoscopy 2007 Colorectal Cancer Screening 2007 Cologuard 2012 Immunochemical Fecal Occult Blood 2012 Mammogram 2012 Pneumococcal Immunization (5 0+ years) (1 of 1 - PCV) 2012 Zoster Immunization (1 of 2) 2012 Influenza Immunization (#1) 2024 SARS-COV-2 Immunization (2023- season) 2024 06/18/2021, 10/08/2020 Respiratory Syncytial Virus (RSV) Immunization (Adult) (1 - 1-dose 75+ series) 2037 Hepatitis B Immunization Aged Out No longer eligible based on patient's age to complete this topic Meningococcal Immunization (ACWY) Aged Out No longer eligible b ased on patient's age to complete this topic Rotavirus Immunization Aged Out No lo nger eligible based on patient's age to complete this topic Goals Goal Patient Goal Type Associated Problems Recent Progress Patient-Stated? Author Behavioral Health Behavioral Health On track(2020 1:59 PM CDT) Yes Jaren Greer, NURSE WOUND CARE Note: I want to be able to cope better with chronic pain and dealing with my daughter. Goal Reviewed today with: patient Readiness to change: Ready to change Department associated with goal: [facility] Steps to achieve goal: Patient counseled coping with chronic pain Patient counseled on accepting physical limitations Patient counseled on setting healthy boundaries with daughter Behavioral Health Behavioral Health On track(2020 2:08 PM CDT) Jaren Ayala, NURSE WOUND CARE Note: Goal: Patient will be able to report improved quality of life, to an acceptable level Goal Reviewed today with: patient Readiness to change: Ready to change Department associated with goal: [facility] Steps to achieve goal: will identify at least two ways their behavioral health impacts their physical health and vice versa. will identify at least two ways/skills/habits to reduce exacerbation of co- occurring disorders. will implement at least one new way/skill/habit to reduce exacerbation of co-occurring disorders Will attend individual and/or group session at least 1x/month Insurance [employer] on file MEDICARE C [employer] Care Teams Dictaphone Transcriber Relationship Specialty Start Date End Date Sidney Crawford MD [address] [place] [address] [place] [address] PCP - General Darkroom Worker 10/28/20
--- OUTSIDE RECORDS SUMMARY | 2024-08-30 00:23 | XMS_ITS | Clinical Summary ---
Author Organization [facility] [address] Address [address] [place] [address] Care Team Providers Care Certified Lactation Educator Name Role Phone Ana Maria Trammell NP Primary Care Provider [phone] Thi Montelongo MD Unavailable [phone] Allergies Active Allergy Reactions Criticality Noted Date [...] and depre ssed mood 03/31/2021 Scoliosis 02/07/2014 Encounters Date Type Department Care Team Description 08/21/2024 2:00 PM CHROME TANNING DRUM OPERATOR Office Visit [facility] Minimally Invasive Surgery [address] [facility] [address] [place] [address] Aviva Hanley NP Weight loss counseling, encounter for (Primary Dx); Severe obesity (BMI 35.0-39.9) with comorbidity (HCC); Other specified disorders of carbohydrate metabolism (HCC); History of diabetes mellitus, type II 08/20/2024 3:40 PM CHROME TANNING DRUM OPERATOR Ancillary Procedure [facility] [employer] 07/25/2024 9:15 AM CHROME TANNING DRUM OPERATOR Office Visit [facility] Card[facility] [address] [facility] [address] [place] [address] Vijay Torres MD History of palpitations (Primary Dx); History of tachycardia; Essential hypertension; RBBB; MARIELY (obstructive sleep apnea); Severe obesity (BMI 35.0-39.9) with comorbidity (HCC) 07/24/2024 Orders Only [facility] Floor 8 [place] [address] Courtney Underwood NP 07/18/2024 1:00 PM CHROME TANNING DRUM OPERATOR - 07/18/2024 11:59 PM CHROME TANNING DRUM OPERATOR Hospital Encounter [facility] 1 [place] [address] MARIELY (obstructive sleep apnea) Discharge Disposition: Discharge to home or self care 07/06/2024 Orders Only [facility] [address] [facility] Floor 8 [place] [address] Courtney Underwood NP Mass of right breast, unspecified quadrant (Primary Dx); Subareolar mass of right breast 07/02/2024 Orders Only [facility] Cardiology [address] [place] [address] Vijay Torres MD 06/27/2024 11:45 AM CHROME TANNING DRUM OPERATOR Office Visit [facility] Cardiology [address] [facility] [address] [place] [address] Vijay Torres MD Sinus tachycardia (Primary Dx); Palpitations; Essential hypertension; RBBB; Diastolic dysfunction without heart failure; MARIELY (obstructive sleep apnea); Need for lipid screening 06/26/2024 11:15 AM CHROME TANNING DRUM OPERATOR Office Visit [facility] [address] [facility] [address] [place] [address] MD MARIELY (obstructive sleep apnea) (Primary Dx); Hypersomnia with sleep apnea; Severe obesity (BMI 35.0-35.9 with comorbidity) (HCC) from Last 3 Months Surgical History Surgery Date Site/Laterality Comments SECTION OTHER SURGICAL HISTORY LAP-BAND SECTION 05/1996 HYSTERECTOMY 06/2014 SPINE SURGERY 06/2015 BARIATRIC SURGERY 12/2011 BLADDER SURGERY 06/2014 Medical History Medical History Date Comments Irritable bowel syndrome Irritab le bowel disease Acquired scoliosis scoliosis Depression depression Hypertension Hypertension Hyperlipidemia hyperlipidemia Asthma asthma Hx Other Medical history tobacco use GERD (gastroesophageal reflux disease) Diabetes mellitus (HCC) Sleep apnea Family History Medical History Relation Name Comments Heart attack Father 2 Myocardial Infa rction; Relation Name Status Comments Father 1 Alive Father 2 Social History Tobacco Use Types Packs/Day Years [...] on file Legal Sex Female 9:31 PM CHROME TANNING DRUM OPERATOR Gender Identity Not on file Sexual Orientation Not on file Obstetrics History Last Filed Vital Signs Vital Sign Reading Time Taken Comments Blood Pressure 163/101 08/21/2024 1:58 PM CHROME TANNING DRUM OPERATOR Pulse 109 08/21/2024 1:58 PM CHROME TANNING DRUM OPERATOR Temperature - - Respiratory Rate 18 06/26/2024 11:2 0 AM CHROME TANNING DRUM OPERATOR Oxygen Saturation 95% 08/21/2024 1:58 PM CHROME TANNING DRUM OPERATOR Inhaled Oxygen Concentration - - Weight 109.7 kg (241 lb 12.8 oz) 08/21/2024 1:58 PM CHROME TANNING DRUM OPERATOR Height 165 cm (5' 4.96 ) 08/21/2024 2:46 PM CHROME TANNING DRUM OPERATOR Body Mass Index 40.29 08/21/2024 1:58 PM CHROME TANNING DRUM OPERATOR Plan of Treatment Health Maintenance Due Date Last Done Comments Breast Cancer Screening-Mammogram 1962 Colon Cancer Screening-Colonoscopy 1962 Depression Screening 1962 Hepatitis C Screening 1962 DTaP/Tdap/Td Vaccine (1 - Tdap) 1973 Hepatitis B Screening 1980 Regular Well Visit/Exam 18-64 1980 Pneumococcal vaccine <65 (1 of 2 - PCV) 1981 Zoster Vaccine (1 of 2) 2012 Covid-19 Vaccine ( - season) 03/11/202403/2021, 10/08/2020 Influenza Vaccine (#1) 2024 Procedures Procedure Name Priority Date/Time Associated Diagnosis Comments BREAST IMAGING US OUTSIDE REFERENCE Routine 08/20/2024 3:35 PM CHROME TANNING DRUM OPERATOR PORTABLE/HOME SLEEP STUDY Routine 07/19/2024 2:52 PM CHROME TANNING DRUM OPERATOR MARIELY (obstructive sleep apnea) POCT LIPID PANEL Routine 06/27/2024 2:41 PM CHROME TANNING DRUM OPERATOR Need for lipid screening T3, FREE Routine 06/27/2024 Sinus tachycardia Palpitations from Last 3 Months Results * Breast Imaging US Outside Reference (08/20/2024 3:35 PM CHROME TANNING DRUM OPERATOR) Narrative RAD_PACS_[facility] - 08/20/2024 3:35 PM CHROME TANNING DRUM OPERATOR This order has been auto-finalized and does not contain a result. us Provider Transcribed Order IMG MAMMO PROCEDURES Final Result RAD_PACS_[facility] * Portable/Home Sleep Study (07/19/2024 2:52 PM CHROME TANNING DRUM OPERATOR) Impressions Rochelle Lane MD - 07/19/2024 2:52 PM CHROME TANNING DRUM OPERATOR Indication for study: Ms. Barrett is a 63-year-old with chief complaints of snoring, unrefreshing sleep and excessive daytime sleepiness. The patient's Rowe Sleepiness scale score is 11 Vital statistics: [...] 1b. This study was performed using a [employer] apnea Link portable monitoring unit, a type [...] continued 7. Avoid alcohol sedatives and other APARTMENT LEASING SPECIALIST depression that may worsen sleep apnea and [...] Rochelle Lane MD - 07/19/2024 2:52 PM CHROME TANNING DRUM OPERATOR Ocst is ready for review us Rochelle Lane MD SLEEP CENTER ORDERABLES Final Re sult * POCT lipid panel (06/27/2024 2:41 PM CHROME TANNING DRUM OPERATOR) Cholesterol, POC 208 mg/dL Comment:GLU = 193 HDL, POC 77 mg/dL Triglycerides, POC 139 mg/dL LDL Cholesterol POC 102 mg/dL Chol/HDL Ratio, POC 1.3 Non-HDL Cholesterol, POC 130 mg/dL Cholesterol Total, POC 208 mg/dL Capillary blood 06/27/2024 2 :41 PM CHROME TANNING DRUM OPERATOR us Vijay Torres MD POINT OF CARE TEST ORDERABLES Fi nal Result * T3, free (06/27/2024) Blood 06/27/2024 Vijay Torres MD LAB BLOOD ORDERABLES Final Resul t EXTERNAL LAB from Last 3 Months Insurance [employer] [place] [address] Care Teams Certified Lactation Educator Relationship Specialty Start Date End Date Ana Maria Trammell NP [address] [place] [address] PCP - General Cardiovascular Disease 11/29/23 Thi Montelongo MD 2022 [address]Z [address] [address] Referring Physician Gynecology 07/05/24
--- OUTSIDE RECORDS SUMMARY | 2024-08-30 00:23 | XMS_ITS | Continuity of Care Document ---
Author Organization [facility] [place] Address [address] [place] [address] [address] [place] [address] Phone Care Team Providers Care Market Reporter Name Role Phone Armani PT, MS, Siva [...] Diagnoses Date Provider Providers Copied on Encounter [address], [id number], [phone] [place] No Information 4 Armani Siva. [address] [place] [address], . [phone], [place], [place], [id number], [phone] [place] No Information 4 Armani Siva. [address] [facility], [facility] [address], [place], [facility], . tel:[phone] Referring Provider: Han Spring [address] [place], [address]. tel:[phone] [address], [place], [place], [id number], tel:[phone] [place] No Information 4 Armani Siva. [address] [facility], [facility] [address] [address], . tel: [phone] Referring Provider: Han Spring [address] [place], [address]. tel:[phone] [facility] [address] [facility] [address], [place], [id number], tel:[phone] [place] No Information Stephon-1 6-201 4 Armani Siva. [address] [place] [address], [address], [place], [address], [place]. tel:[phone] Referring Provider: Darwin Lopez[address] [place] [address], [address]. tel:[phone], [id number], tel:[phone] [place] No Information Stephon-1 2-201 4 Armani Siva. [address] [place] [address], [address], [place], [address], [place]. tel:[phone] Referring Provider: Darwin Lopez[address] [place] [address], [address]. tel:[phone], [id number], tel:[phone] [place] No Information Stephon-0 9-201 4 Armani Siva. [address] [place] [address], [address], [place], [address], [place]. tel:[phone] Referring Provider: Darwin Lopez[address] [place] [address], [address]. tel:[phone], [id number], tel:[phone] [place] No Information Stephon-0 2-201 4 Armani Siva. [address] [place] [address], [address], [place], [address], [place]. tel:[phone] Referring Provider: [place], [address]. tel:[phone], [place], [place], [id number], tel:[phone] [place] No Information May-3 0-201 4 Armani Siva. [address] [place] [address], [address], [place], [facility], . tel: [phone] Referring Provider: Han Spring [address] [place], [address]. tel:[phone] [place] [address], [id number], tel:[phone] Vasu Cervicalgia May- 4 Armani Siva. [address] [place] [address], [address], [place], [facility], . tel: [phone] Referring Provider: Han Spring [address] [place], [address]. tel:[phone], [id number], tel:[phone] [place] No Information Mar-3 1-201 4 Armani Siva. [address] [place] [address], [address], [place], [facility], . tel: [phone] Referring Provider: Darwin Lopez[address] [place], [address]. tel:[phone] [facility] [address] [place] [address], [id number], [place] tel:[phone] [place] No Information Sep-2 7 4 Armani Siva. [address] [place] [address], [address], [place], [facility], . tel: [phone] Referring Provider: Han Spring [address] [place], [address]. tel:[phone] [facility] [address] [place] [address], [id number], tel:[phone] [place] No Information Mar-2 4-201 4 Armani Siva. [address] [place] [address], [address], [place], [facility], . tel:[phone] Referring Provider: Han Spring [facility] [place], [address]. tel:[phone] [facility], [address] [place], [place] [address], [place], [place], [id number], [place] tel:[phone] [place] No Information Mar-2 0-201 4 Armani Siva. [address] [place] [address], [address], [place], [facility], [place]. tel: [phone] Referring Provider: Darwin Lopez[address] [place] [address], [address]. tel:[phone] [address], [place], [place], [id number], [place] tel:[phone] [place] No Information Mar-1 7-201 4 Armani Siva. [address] [place] [address], [address], [place], [facility], . tel: [phone] Referring Provider: Darwin Lopez[address] [place] [address], [address]. tel:[phone] [address], [place], [place], [id number], [place] tel:[phone] [place] No Information Mar-1 3-201 4 Armani Siva. [address] [place] [address], [address], [place], [facility], [place]. tel: [phone] Referring Provider: Han Spring [address] [place] [address], [address]. tel:[phone], [place], [place], [id number], [place] tel:[phone] [place] No Information Mar-1 0-201 4 Armani Siva. [address] [place] [address], [address], [address], [place]. tel: [phone] Referring Provider: Han Spring [address] [place] [address], [address]. tel:[phone] [place] [address], [place], [place], [id number], [place] tel:[phone] [place] No Information Sep-0 7-201 4 Armani Paniagua. [address] [facility], [address], [place], [address], . tel:[phone] Referring Provider: Darwin Lopez[address] [place], [address]. tel:[phone] [facility] [place], [address] [facility] [address], [place], [place], [id number], tel:[phone] [place] Lumbago Mar-0 3-201 4 Armani Paniagua. [address] [facility], [address], [address], . [phone] Referring Provider: Han Spring [address] [place], [address]. tel:[phone] Family History Family Member Type Diagnosis Age At Onset No Information Payers Payer name Insurance type Covered constitution party ID Authorjuliaa fabrice(s) [place] [id number] [facility] [id number] Social History Type Description Quantity Date Captured [...]
--- OUTSIDE RECORDS SUMMARY | 2024-08-30 00:23 | XMS_ITS | Clinical Summary ---
Author Organization [facility] [employer] Address [address] [place] [address] Care Team Providers Care Child Day Care Provider Name Role Phone Sidney Crawford MD Primary Care Provider [phone] Source Comments [facility] [employer],non-owned Affiliates and Associated Physician Practices is amultiple site organization consisting of ambulatory clinics and hospital sitesin [place], [place], [place] and [place]. This disclosure is being madepursuant to the Care Everywhere program and may not contain all information available regarding this patient. Last updated 18.[facility] [employer] Allergies Active Allergy Reactions Criticality Noted Date [...] by mouth 2 times daily 60 tablet 12/21/2023 Active fluticasone propionate (Flonase) 50 MCG/ACT nasal spray Buchanan 2 (two) sprays into each nostril once [...] lumbar re gion without neurogenic claudication 02/07/2014 Family History Medical History Relation Name Comments Heart Failure Father Status: Alive Relation Name Status Comments Father Social History Tobacco Use Types Packs/Day Years [...] CDT Respiratory Rate 16 06/23/2015 4:20 PM CHRONOMETER ADJUSTER Oxygen Saturation 91% 12/21/2023 1:55 PM CDT Inhaled Oxygen Concentration - - Weight 106.1 kg (233 lb 12.8 oz) 12/21/2023 1:55 PM CDT Height 165.1 cm (5' 5 ) 12/21/2023 1:55 PM CDT Body Mass Index 38.91 12/21/2023 1:55 PM CDT Plan of Treatment Health Maintenance Due Date Last Done Comments COLOGUARD (AGES 45-75) - COL ON CA SCREENING 1962 COLON MONITORING 1962 COLONOSCOPY - COLON CA SCREENING 1962 CT COLONOGRAPHY - COLON CA SCREENING 1962 Colorectal Cancer Screening 1962 FIT - COLON CA SCREENING 1962 FLEX SIG - COLON CA SCREENING 1962 LIPID TESTING 1962 MAMMOGRAM 1962 PAP SMEAR 1962 HIV SCREENING 1977 HEPATITIS C SCREENING 08/08/1980 DTAP/TDAP/TD VACCINES (1 - Tdap) 1981 PNEUMOCOCCAL VACCINE 50+ (1 of 2 - PCV) 1981 ZOSTER VACCINE (1 of 2) 2012 Respiratory Syncytial Virus (RSV) Vaccine Pt: or over 60 yrs (1 - Risk 60-74 years 1-dose series) 2022 SCREENING FOR DIABETES 12/21/2023 5, 06/10/2015 COVID-19 VACCINE (1 - 2023-2 5 season) 2024 INFLUENZA VACCINE (#1) 2024 DEPRESSION SCREENING 07/11/2024 12/21/2023 MEDICARE AWV CALENDAR YEAR 2024 HEPATITIS B VACCINE Aged Out No longe r eligible based on patient's age to complete this topic HIB VACCINE Aged Out No longer eligi ble based on patient's age to complete this topic HPV VACCINE Aged Out No longer eligi ble based on patient's age to complete this topic MENINGOCOCCAL (Group B) VACCINE Aged Out No longer eligible b ased on patient's age to complete this topic MENINGOCOCCAL VACCINE Aged Out No davidson gregorio eligible based on patient's age to complete this topic Procedures Procedure Name Priority Date/Time Associated Diagnosis Comments BASIC METABOLIC PANEL (CALCIUM TOTAL) Routine 06/10/2015 11:49 AM CHRONOMETER ADJUSTER from Last 3 Months or Most Recently Relevant to Health Maintenance Results * BASIC METABOLIC PANEL (CALCIUM TOTAL) (06/10/2015 11:49 AM CHRONOMETER ADJUSTER) BUN 13 7 - 26 mg/dL [facility] Creatinine 0.9 0.6 - 1.2 mg/dL [facility] Sodium 141 136 - 145 mmol/L [facility] Potassium 3.8 3.5 - 4.5 mmol/L [facility] Chloride 102 98 - 107 mmol/L [facility] CO2 28 22 - 29 mmol/L [facility] Glucose 86 70 - 115 mg/dL [facility] Calcium 9.5 8.4 - 10.2 mg/dL [facility] Anion Gap 15 8 - 18 [facility] BUN/Creatinine Ratio 14 7 - 23 [facility] Osmolality Calculated 277 270 - 300 mOsm/kg [facility] eGFR >60 >60 mL/min/1.7 3 m2 [facility] Blood specimen (specimen) BLOOD SPECIMEN / Unknown 06/10/2015 11:49 AM CHRONOMETER ADJUSTER 06/10/2015 12:36 PM CHRONOMETER ADJUSTER Soto De Oliveira MD LAB - CHEMISTRY [facility] Organization Address City/State/ZIP Co de Phone Number [facility] [address] [phone] from Last 3 Months or Most Recently Relevant to Health Maintenance Care Teams Child Day Care Provider Relationship Specialty Start Date End Date Sidney Crawford MD [facility] [place] [address] PCP - General 01/26/21
[2024-08-30 11:42] VITALS: BP 147/88; PULSE 112; RESP 19; TEMP 36.2; O2SAT 97
[2024-08-30] MEDS: LACTATED RINGERS 1,000 ML 150 ML IV CONT (11:49)
--- NOTE | 2024-08-30 12:01 | P.PNAN_ITS ---
Anes - Initial Pre Proc Eval Procedure: Operation Date: 08/30/24 12:30 Proposed Procedures p Colonoscopy - Paulo Benjamin MD Date/Time: 08/30/24 12:01 Surgeon: Paulo Benjamin MD Pre Op Diagnosis: hx of colon polyps Patient Data Age: 64 Gender: F Height: 1.63 m Weight: 104.4 kg Last Vital Signs Temp 97.1 F L 08/30/24 11:42 Pulse 112 H 08/30/24 11:42 Resp 19 08/30/24 11:42 BP 147/88 H 08/30/24 11:42 Pulse Ox 97 08/30/24 11:42 O2 Del Method Room Air 08/30/24 11:42 Allergies Allergy/AdvReac Type Severity Reaction Status Date / Time Sulfa (Sulfonamide Allergy Mild Rash Verified 08/30/24 11:40 Antibiotics) Iodinated Contrast Media Allergy Rash Verified 08/30/24 11:40 iodine Allergy Rash Verified 08/30/24 11:40 Home Medications ?Medication ?Instructions ?Recorded ?Confirmed ?Type albuterol sulfate 90 mcg/actuation 90 mcg inhalation Q6H PRN 12/15/23 08/30/24 Rx aerosol inhaler Bronchospasm #8.5 grams empagliflozin 10 mg tablet 10 mg PO DAILY 12/15/23 08/30/24 History (Jardiance) azelastine 137 mcg-fluticasone 50 1 spray intranasal BID 01/20/24 08/30/24 History mcg/spray nasal spray cetirizine 10 mg tablet 10 mg PO DAILY PRN allergy symptoms 01/20/24 08/30/24 History fluticasone 250 mcg-salmeterol 50 1 inh inhalation BID 01/20/24 08/30/24 History mcg/dose blistr powdr for inhalation solriamfetol 150 mg tablet (Sunosi) 150 mg PO DAILY 01/20/24 08/30/24 History omeprazole 20 mg capsule,delayed See Rx Instructions .Route 02/20/24 08/30/24 Rx release .COMPLEX #90 caps losartan 50 mg tablet 50 mg PO DAILY #90 tabs 07/02/24 08/30/24 Rx duloxetine 60 mg capsule,delayed 60 mg PO DAILY #30 caps 08/29/24 Rx release Patient hx anesthesia problems: none Family hx anesthesia problems: none Results Review: All pre-operative results and documents have been reviewed as part of the pre- operative evaluation. [facility] Past Medical History Medical History Arthritis Obese Encounter for screening colonoscopy Loose stools Epigastric pain Black tarry stools Lumbar disc disease 2015 discectomy (normal spontaneous vaginal delivery) x3 Depression Asthma HTN (hypertension) MARIELY (obstructive sleep apnea) Morbid obesity Surgical History Surgical History H/O unilateral oophorectomy H/O discectomy History of x1 Hx of laparoscopic gastric banding H/O: hysterectomy TVH-bilateral salpingectomy; anterior and posterior repair; TOT Family History Family History Sibling Hypertension Patient's sister is in good health Patient's brother is in good health Father Family history of heart disease in male family member before age 55 Patient's father is in good health Mother Patient's mother is in good health Unknown Asthma Hypertension Depression Anxiety Grandparent Hepatic cancer Other Family history of cardiovascular disease Social History Social History Social History: Caffeine: Coffee and Tea 2-3 cups daily Smoking packs per day: 0.5 Smoking cigarettes per day: 10.0 Years smoked: 20 Smoking pack-years: 10.00 Smoking status: Former smoker Tobacco type: cigarettes Smoking end date: 07/11/00 Alcohol intake: current Alcohol use details: 1 drink monthly Substance use: current Other substance usage details: CBD OIL/SPRAY Last use: 10/01/22 Lack of Transportation: No Lack of Food: Never True Current Housing: I Have Housing Concerned About Future Housing: No Difficulty Paying Gas/Electric Bills: No Difficulty Paying for Meds: No Currently Unemployed: No Education: High School Diploma/GED Difficulty w/ Childcare or Family Care: No Living arrangements: with family Spiritual care concerns: No Anes - Eval Final PreProcedure Day of Procedure 08/30/24 12:01 Patient weight: morbidly obese Lungs: normal air movement Airway: Mallampati scale class II Neurological: alert and oriented Last oral intake: >/= 8 hours ASA classification: III Emergent: no Anesthetic plan: proceed Anesthesia type and monitoring: general GIVS and standard monitoring Results Review: All pre-operative results and documents have been reviewed as part of the pre-o perative evaluation. HTN, borderline hyperlipidemia, MARIELY on CPAP. Informed Consent: The patient's anesthetic plan and its attendant risks and benefits were discussed with the patient/family/POA. Questions were solicited and answers provided to the satisfaction of the patient/family/POA.
--- NOTE | 2024-08-30 12:21 | PM.HPGS ---
History of Present Illness History of Present Illness Consent: Risks, benefits, and alternatives have been discussed and questions answered. Patient agrees to proceed with procedure. Chief complaint: hx of colon polyps Narrative: Amalia Barrett is a 64 year old female with colon polyp in ascending removed in piece-meal in 06/2023 Review of Systems Review of Systems: All systems reviewed & are unremarkable except as noted in HPI and below PMFSH Past Medical History Medical History Arthritis Obese Encounter for screening colonoscopy Loose stools Epigastric pain Black tarry stools Lumbar disc disease 2015 discectomy (normal spontaneous vaginal delivery) x3 Depression Asthma HTN (hypertension) MARIELY (obstructive sleep apnea) Morbid obesity Surgical History Surgical History H/O unilateral oophorectomy H/O discectomy History of x1 Hx of laparoscopic gastric banding H/O: hysterectomy TVH-bilateral salpingectomy; anterior and posterior repair; TOT Family History Family History Sibling Hypertension Patient's sister is in good health Patient's brother is in good health Father Family history of heart disease in male family member before age 55 Patient's father is in good health Mother Patient's mother is in good health Unknown Asthma Hypertension Depression Anxiety Grandparent Hepatic cancer Other Family history of cardiovascular disease Social History Social History Social History: Caffeine: Coffee and Tea 2-3 cups daily Smoking packs per day: 0.5 Smoking cigarettes per day: 10.0 Years smoked: 20 Smoking pack-years: 10.00 Smoking status: Former smoker Tobacco type: cigarettes Smoking end date: 07/11/00 Alcohol intake: current Alcohol use details: 1 drink monthly Substance use: current Other substance usage details: CBD OIL/SPRAY Last use: 10/01/22 Lack of Transportation: No Lack of Food: Never True Current Housing: I Have Housing Concerned About Future Housing: No Difficulty Paying Gas/Electric Bills: No Difficulty Paying for Meds: No Currently Unemployed: No Education: High School Diploma/GED Difficulty w/ Childcare or Family Care: No Living arrangements: with family Spiritual care concerns: No Meds Home Medications and Allergies Home Medications ?Medication ?Instructions ?Recorded ?Confirmed ?Type albuterol sulfate 90 mcg/actuation 90 mcg inhalation Q6H PRN 12/15/23 08/30/24 Rx aerosol inhaler Bronchospasm #8.5 grams empagliflozin 10 mg tablet 10 mg PO DAILY 12/15/23 08/30/24 History (Jardiance) azelastine 137 mcg-fluticasone 50 1 spray intranasal BID 01/20/24 08/30/24 History mcg/spray nasal spray cetirizine 10 mg tablet 10 mg PO DAILY PRN allergy symptoms 01/20/24 08/30/24 History fluticasone 250 mcg-salmeterol 50 1 inh inhalation BID 01/20/24 08/30/24 History mcg/dose blistr powdr for inhalation solriamfetol 150 mg tablet (Sunosi) 150 mg PO DAILY 01/20/24 08/30/24 History omeprazole 20 mg capsule,delayed See Rx Instructions .Route 02/20/24 08/30/24 Rx release .COMPLEX #90 caps losartan 50 mg tablet 50 mg PO DAILY #90 tabs 07/02/24 08/30/24 Rx duloxetine 60 mg capsule,delayed 60 mg PO DAILY #30 caps 08/29/24 Rx release Allergies Allergy/AdvReac Type Severity Reaction Status Date / Time Sulfa (Sulfonamide Allergy Mild Rash Verified 08/30/24 11:40 Antibiotics) Iodinated Contrast Media Allergy Rash Verified 08/30/24 11:40 iodine Allergy Rash Verified 08/30/24 11:40 Vital Signs Vital Signs - 24 hr 08/30/24 11:42 Temperature 97.1 F L Pulse Rate 112 H Respiratory Rate 19 Blood Pressure 147/88 H Pulse Oximetry 97 Oxygen Delivery Room Air Exam Const: General: comfortable and no acute distress HENMT: Face/Nose/Sinus: Normal nares present Eyes: General: appearance normal, both eyes and all related structures Neck: Neck: no JVD Resp: Auscultation: clear to auscultation bilaterally Cardio: Rate: regular rate Rhythm: regular rhythm GI: Inspection: non-distended GI Palp: Yes Soft to palpation Skin: General skin exam: normal color Neuro: General: gait normal Speech: normal speech Extrem: General: normal to inspection Psych: Mental Status: mental status grossly normal Assessment and Plan Assessment and plan (1) History of colon polyps: Code(s): Z86.010 - Personal history of colon polyps Status: Acute Assessment and Plan: colonoscopy
[2024-08-30 12:40] VITALS: BP 146/94; PULSE 97; RESP 23; O2SAT 96
[2024-08-30 12:50] VITALS: BP 131/84; PULSE 101; RESP 24; O2SAT 98
[2024-08-30 13:00] VITALS: BP 133/90; PULSE 88; RESP 14; O2SAT 99
== END 2024-08-30 13:04 | disposition home or self-care (01) ==
PROVIDERS: PCP Clinical Nurse Specialist; Referring Provider Internal Medicine Gastroenterology; Visit Provider Internal Medicine Gastroenterology
PROC: 0DJD8ZZ Inspection of Lower Intestinal Tract, Via Natural or Artificial Opening Endoscopic (ICD-10-PCS; CPT 45378; principal; 2024-08-30 12:30)
DX: Z12.11 Encounter for screening for malignant neoplasm of colon (principal); D12.3 Benign neoplasm of transverse colon; K63.5 Polyp of colon; K57.30 Diverticulosis of large intestine without perforation or abscess without bleeding; K64.8 Other hemorrhoids; Z87.891 Personal history of nicotine dependence; E66.01 Morbid (severe) obesity due to excess calories; Z68.39 Body mass index [BMI] 39.0-39.9, adult
CPT/HCPCS: 45380; 88305; J2003; J2704; J7120

== ENCOUNTER 2024-09-03 16:25 | Outpatient (CLI) | payer MEDICARE, SELFPAY ==
[2024-09-03 17:12] LABS: Hemoglobin A1C 6.6 % (<5.7)
[2024-09-03 17:13] LABS: Cholesterol 238 mg/dL (0-200); HDL Direct 79 mg/dL; Triglycerides 219 mg/dL (<150)
[2024-09-03 17:28] LABS: LDL Cholesterol Direct 114 mg/dL
--- OUTSIDE RECORDS SUMMARY | 2024-09-03 18:38 | XMS_ITS | Clinical Summary ---
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 Goal Reviewed today with: patient Readiness to change: Ready to change Department associated with goal: [facility] Steps to achieve goal: Patient counseled coping with chronic pain Patient counseled on accepting physical limitations Patient counseled on setting healthy boundaries with daughter Behavioral Health Behavioral Health On track(2020 2:08 PM CDT) Jaren Ayala, TISSUE REWINDER Note: Goal: Patient will be able to report improved quality of life, to an acceptable level Goal Reviewed today with: patient Readiness to change: Ready to change Department associated with goal: [facility] Steps to achieve goal: [...] on file MEDICARE C HU[employer] Care Teams De Icer Finisher Relationship Specialty Start Date End Date Sidney Crawford MD [address] [place] [address] [place] [address] PCP - General Quality Control Engineering Technician 10/28/20
--- OUTSIDE RECORDS SUMMARY | 2024-09-03 18:38 | XMS_ITS | Referral Summary ---
Author Organization [place] [address] Address [address] [place] [address] Care Team Providers Care Entry Level Account Manager Name Role Phone Ana Maria Trammell NP Primary Care Provider [phone] Thi Montelongo MD Unavailable [phone] Encounters Date Type Department Care Team Description 08/21/2024 2:00 PM WOOD MOLDER Office Visit [facility] Minimally Invasive Surgery [address] [place] [address] Medical Office Building 4 [address] [place] [address] Aviva Hanley NP Weight loss counseling, encounter for (Primary Dx); Severe obesity (BMI 35.0-39.9) with comorbidity (HCC); Other specified disorders of carbohydrate metabolism (HCC); History of diabetes mellitus, type II 08/20/2024 3:40 PM WOOD MOLDER Ancillary Procedure [facility] Outside Films 07/25/2024 9:15 AM WOOD MOLDER Office Visit [facility] Medical Group Cardiology [address] [facility] [address] [place] [address] Vijay Torres MD History of palpitations (Primary Dx); History of tachycardia; Essential hypertension; RBBB; MARIELY (obstructive sleep apnea); Severe obesity (BMI 35.0-39.9) with comorbidity (HCC) 07/24/2024 Orders Only [facility] Surgery [facility] Floor 8 [place] [address] Courtney Underwood NP 07/18/2024 1:00 PM WOOD MOLDER - 07/18/2024 11:59 PM WOOD MOLDER Hospital Encounter [facility] 1 [place] [address] MARIELY (obstructive sleep apnea) Discharge Disposition: Discharge to home or self care 07/06/2024 Orders Only [facility] Surgery [address] [facility] Floor 8 [place] [address] Courtney Underwood NP Mass of right breast, unspecified quadrant (Primary Dx); Subareolar mass of right breast 07/02/2024 Orders Only [facility] Medical [facility] Cardiology [address] [place] [address] Vijay Torres MD 06/27/2024 11:45 AM WOOD MOLDER Office Visit [facility] Cardiology [address] [facility] [address] [place] [address] Vijay Torres MD Sinus tachycardia (Primary Dx); Palpitations; Essential hypertension; RBBB; Diastolic dysfunction without heart failure; MARIELY (obstructive sleep apnea); Need for lipid screening 06/26/2024 11:15 AM WOOD MOLDER Office Visit [facility] [address] [facility] [address] [place] [address] MD MARIELY (obstructive sleep apnea) (Primary Dx); Hypersomnia with sleep apnea; Severe obesity (BMI 35.0-35.9 with comorbidity) ([facility]) from Last 3 Months Allergies Active Allergy [...] on file Legal Sex Female 9:31 PM WOOD MOLDER Gender Identity Not on file Sexual Orientation Not on file Last Filed Vital Signs Vital Sign Reading Time Taken Comments Blood Pressure 163/101 08/21/2024 1:58 PM WOOD MOLDER Pulse 109 08/21/2024 1:58 PM WOOD MOLDER Temperature - - Respiratory Rate 18 06/26/2024 11:2 0 AM WOOD MOLDER Oxygen Saturation 95% 08/21/2024 1:58 PM WOOD MOLDER Inhaled Oxygen Concentration - - Weight 109.7 kg (241 lb 12.8 oz) 08/21/2024 1:58 PM WOOD MOLDER Height 165 cm (5' 4.96 ) 08/21/2024 2:46 PM WOOD MOLDER Body Mass Index 40.29 08/21/2024 1:58 PM WOOD MOLDER Plan of Treatment Not on file Procedures Procedure Name Priority Date/Time Associated Diagnosis Comments BREAST IMAGING US OUTSIDE REFERENCE Routine 08/20/2024 3:35 PM WOOD MOLDER PORTABLE/HOME SLEEP STUDY Routine 07/19/2024 2:52 PM WOOD MOLDER MARIELY (obstructive sleep apnea) POCT LIPID PANEL Routine 06/27/2024 2:41 PM WOOD MOLDER Need for lipid screening T3, FREE Routine 06/27/2024 Sinus tachycardia Palpitations from Last 3 Months Results * Breast Imaging US Outside Reference (08/20/2024 3:35 PM WOOD MOLDER) Narrative RAD_PACS_[facility] - 08/20/2024 3:35 PM WOOD MOLDER This order has been auto-finalized and does not contain a result. us Provider Transcribed Order IMG MAMMO PROCEDURES Final Result RAD_PACS_[facility] * Portable/Home Sleep Study (07/19/2024 2:52 PM WOOD MOLDER) Pipos Rochelle Lane MD - 07/19/2024 2:52 PM WOOD MOLDER Indication for study: Ms. Barrett is a 63-year-old with chief complaints of snoring, unrefreshing sleep and excessive daytime sleepiness. The patient's [place] Sleepiness scale score is 11 Vital statistics: [...] 1b. This study was performed using a [employer] apnea Link portable monitoring unit, a type [...] continued 7. Avoid alcohol sedatives and other NETWORK ANALYST depression that may worsen sleep apnea and [...] Rochelle Lane MD - 07/19/2024 2:52 PM WOOD MOLDER Ocst is ready for review Rochelle Lane MD SLEEP CENTER ORDERABLES Final Re sult * POCT lipid panel (06/27/2024 2:41 PM WOOD MOLDER) Cholesterol, POC 208 mg/dL Comment:GLU = 193 HDL, POC 77 mg/dL Triglycerides, POC 139 mg/dL LDL Cholesterol POC 102 mg/dL Chol/HDL Ratio, POC 1.3 Non-HDL Cholesterol, POC 130 mg/dL Cholesterol Total, POC 208 mg/dL Capillary blood 06/27/2024 2 :41 PM WOOD MOLDER Vijay Torres MD POINT OF CARE TEST ORDERABLES Fi nal Result * T3, free (06/27/2024) Blood 06/27/2024 Vijay Torres MD LAB BLOOD ORDERABLES Final Resul t EXTERNAL LAB from Last 3 Months Insurance T MEDICARE GOLD [facility] MEDICARE GOLD Care Teams Entry Level Account Manager Relationship Specialty Start Date End Date Ana Maria Trammell NP [address] [place], [place] [id number] PCP - General Cardiovascular Disease 11/29/23 Thi Montelongo MD [address] [address] Referring Physician Gynecology 07/05/24
--- OUTSIDE RECORDS SUMMARY | 2024-09-03 18:38 | XMS_ITS | Continuity of Care Document ---
Author Organization [facility] Address [address] [place] [address] [address] [place] [address] Phone Care Team Providers Care General Operator Name Role Phone Armani PT, MS, [...] Diagnoses Date Provider Providers Copied on Encounter [address], [id number], [phone] [place] No Information 4 Armani Siva. [address] [place] [address], . tel:[phone], [place], [place], [id number], [phone] [place] No Information 4 Armani Siva. [address] [facility], [facility] [address], [place], [facility], . tel:[phone] Referring Provider: Han Spring [address] [place], [address]. tel:[phone] [address], [place], [place], [id number], tel:[phone] [place] No Information 4 Armani Siva. [address] [facility], [facility] [address] [address], . tel:[phone] Referring Provider: Han Spring [address] [place], [address]. tel:[phone] [facility] [address] [facility] [address], [place], [id number], tel:[phone] [place] No Information Stephon-1 6-201 4 Armani Siva. [address] [place] [address], [address], [place], [address], [place]. tel:[phone] Referring Provider: Darwin Lopez[address] [place] [address], [address]. tel:[phone], [id number], tel:[phone] [place] No Information Stephon-1 2-201 4 Armani Siva. [address] [place] [address], [address], [place], [address], [place]. tel:[phone] Referring Provider: Darwin Lopez[address] [place] [address], [address]. tel:[phone], [id number], tel:[phone] [place] No Information Stephon-0 9-201 4 Armani Siva. [address] [place] [address], [address], [place], [address], [place]. tel:[phone] Referring Provider: Darwin Lopez[address] [place] [address], [address]. tel:[phone], [id number], tel:[phone] [place] No Information Stephon-0 2-201 4 Armani Isva. [address] [place] [address], [address], [place], [address], [place]. tel:[phone] Referring Provider: [place], [address]. tel:[phone], [place], [place], [id number], tel:[phone] [place] No Information May-3 0-201 4 Armani Siva. [address] [place] [address], [address], [place], [facility], . tel: [phone] Referring Provider: Han Spring [address] [place], [address]. tel:[phone] [place] [address], [id number], tel:[phone] Vasu Cervicalgia May- 4 Armani Siva. [address] [place] [address], [address], [place], [place], [facility], . tel: [phone] Referring Provider: Han Spring [address] [place], [address]. tel:[phone], [id number], tel:[phone] [place] No Information Mar-3 1-201 4 Armani Siva. [address] [place] [address], [address], [place], [place], [facility], . tel: [phone] Referring Provider: Darwin Lopez[address] [place], [address]. tel:[phone] [facility] [address] [place] [address], [id number], [place] tel:[phone] [place] No Information Sep-2 7 4 Armani Siva. [address] [place] [address], [address], [place], [place], [facility], . tel: [phone] Referring Provider: Han Spring [address] [place], [address]. tel:[phone] [facility] [address] [place] [address], [id number], tel:[phone] [place] No Information Mar-2 4-201 4 Armani Siva. [address] [place] [address], [address], [place], [place], [facility], . tel:[phone] Referring Provider: Han Spring [facility] [place], [address]. tel:[phone] [facility], [address] [place], [place] [address], [place], [place], [id number], [place] tel:[phone] [place] No Information Mar-2 0-201 4 Armani Siva. [address] [place] [address], [address], [place], [facility], [place]. tel: [phone] Referring Provider: Darwin Lopez[address] [place] [address], [address]. tel:[phone] [address], [place], [place], [id number], [place] tel:[phone] [place] No Information Mar-1 7-201 4 Armani Siva. [address] [place] [address], [address], [place], [facility], . tel: [phone] Referring Provider: Dariwn Lopez[address] [place] [address], [address]. tel:[phone] [address], [place], [place], [id number], [place] tel:[phone] [place] No Information Mar-1 3-201 4 Armani Siva. [address] [place] [address], [address], [place], [facility], [place]. tel: [phone] Referring Provider: Han Spring [address] [place] [address], [address]. tel:[phone], [place], [place], [id number], [place] tel:[phone] [place] No Information Mar-1 0-201 4 Armani Siva. [address] [place] [address], [address], [place], [address], [place]. tel: [phone] Referring Provider: Han Spring [address] [place] [address], [address]. tel:[phone] [place] [address], [place], [place], [id number], [place] tel:[phone] [place] No Information Sep-0 7-201 4 Armani Paniagua. [address] [facility], [address], [place], [address], . tel:[phone] Referring Provider: Darwin Lopez[address] [place], [address]. tel:[phone] [facility], [address] [facility] [address], [place], [place], [id number], tel:[phone] [place] Lumbago Mar-0 3-201 4 Armani Paniagua. [address] [facility], [address], [place], [address], . [phone] Referring Provider: Han Spring [address] [place], [address]. tel:[phone] Family History Family Member Type Diagnosis Age At Onset No Information Payers Payer name Insurance type Covered constitution party ID Authorjuliaa fabrice(s) [place] [id number] [facility] [id number] Social History Type Description Quantity Date Captured [...]
--- OUTSIDE RECORDS SUMMARY | 2024-09-03 18:38 | XMS_ITS | Clinical Summary ---
Author Organization [facility] [address] Address [address] [place] [address] Care Team Providers Care Health Social Work Professor Name Role Phone Ana Maria Trammell NP Primary Care Provider [phone] Thi Montelongo MD Unavailable [phone] Allergies Active Allergy Reactions Criticality Noted Date [...] Department Care Team Description 08/21/2024 2:00 PM SOUND ART INSTRUCTOR Office Visit [facility] Minimally Invasive Surgery [address] [facility] Medical Office Building [address] [place] [address] Aviva Hanley NP Weight loss counseling, encounter for (Primary Dx); Severe obesity (BMI 35.0-39.9) with comorbidity (HCC); Other specified disorders of carbohydrate metabolism (HCC); History of diabetes mellitus, type II 08/20/2024 3:40 PM SOUND ART INSTRUCTOR Ancillary Procedure [facility] Outside Films 07/25/2024 9:15 AM SOUND ART INSTRUCTOR Office Visit [facility] Medical Group Cardiology [address] [facility] [address] [place] [address] Vijay Torres MD History of palpitations (Primary Dx); History of tachycardia; Essential hypertension; RBBB; MARIELY (obstructive sleep apnea); Severe obesity (BMI 35.0-39.9) with comorbidity (HCC) 07/24/2024 Orders Only [facility] Floor [address] [place] [address] Courtney Underwood NP 07/18/2024 1:00 PM SOUND ART INSTRUCTOR - 07/18/2024 11:59 PM SOUND ART INSTRUCTOR Hospital Encounter [facility] 1 [place] [address] MARIELY (obstructive sleep apnea) Discharge Disposition: Discharge to home or self care 07/06/2024 Orders Only [facility] Surgery [address] [facility] Floor [address] [place] [address] Courtney Underwood NP Mass of right breast, unspecified quadrant (Primary Dx); Subareolar mass of right breast 07/02/2024 Orders Only [facility] Cardiology [address] [place] [address] Vijay Torres MD 06/27/2024 11:45 AM SOUND ART INSTRUCTOR Office Visit [facility] Cardiology [address] [facility] [address] [place] [address] Vijay Torres MD Sinus tachycardia (Primary Dx); Palpitations; Essential hypertension; RBBB; Diastolic dysfunction without heart failure; MARIELY (obstructive sleep apnea); Need for lipid screening 06/26/2024 11:15 AM SOUND ART INSTRUCTOR Office Visit [facility] [address] [facility] [address] [place] [address] MD MARIELY (obstructive sleep apnea) [...] on file Legal Sex Female 9:31 PM SOUND ART INSTRUCTOR Gender Identity Not on file Sexual Orientation Not on file Obstetrics History Last Filed Vital Signs Vital Sign Reading Time Taken Comments Blood Pressure 163/101 08/21/2024 1:58 PM SOUND ART INSTRUCTOR Pulse 109 08/21/2024 1:58 PM SOUND ART INSTRUCTOR Temperature - - Respiratory Rate 18 06/26/2024 11:2 0 AM SOUND ART INSTRUCTOR Oxygen Saturation 95% 08/21/2024 1:58 PM SOUND ART INSTRUCTOR Inhaled Oxygen Concentration - - Weight 109.7 kg (241 lb 12.8 oz) 08/21/2024 1:58 PM SOUND ART INSTRUCTOR Height 165 cm (5' 4.96 ) 08/21/2024 2:46 PM SOUND ART INSTRUCTOR Body Mass Index 40.29 08/21/2024 1:58 PM SOUND ART INSTRUCTOR Plan of Treatment Health Maintenance Due Date [...] US OUTSIDE REFERENCE Routine 08/20/2024 3:35 PM SOUND ART INSTRUCTOR PORTABLE/HOME SLEEP STUDY Routine 07/19/2024 2:52 PM SOUND ART INSTRUCTOR MARIELY (obstructive sleep apnea) POCT LIPID PANEL Routine 06/27/2024 2:41 PM SOUND ART INSTRUCTOR Need for lipid screening T3, FREE Routine 06/27/2024 Sinus tachycardia Palpitations from Last 3 Months Results * Breast Imaging US Outside Reference (08/20/2024 3:35 PM SOUND ART INSTRUCTOR) Narrative RAD_PACS_[facility] - 08/20/2024 3:35 PM SOUND ART INSTRUCTOR This order has been auto-finalized and does not contain a result. us Provider Transcribed Order IMG MAMMO PROCEDURES Final Result RAD_PACS_[facility] * Portable/Home Sleep Study (07/19/2024 2:52 PM SOUND ART INSTRUCTOR) Impressions Rochelle Lane MD - 07/19/2024 2:52 PM SOUND ART INSTRUCTOR Indication for study: Ms. Barrett is a 63-year-old with chief complaints of snoring, unrefreshing sleep and excessive daytime sleepiness. The patient's [place] Sleepiness scale score is 11 Vital statistics: [...] 1b. This study was performed using a [employer] apnea Link portable monitoring unit, a type [...] continued 7. Avoid alcohol sedatives and other CLAIM APPROVER depression that may worsen sleep apnea and [...] Rochelle Lane MD - 07/19/2024 2:52 PM SOUND ART INSTRUCTOR Ocst is ready for review us Rochelle Lane MD SLEEP CENTER ORDERABLES Final Re sult * POCT lipid panel (06/27/2024 2:41 PM SOUND ART INSTRUCTOR) Cholesterol, POC 208 mg/dL Comment:GLU = 193 HDL, POC 77 mg/dL Triglycerides, POC 139 mg/dL LDL Cholesterol POC 102 mg/dL Chol/HDL Ratio, POC 1.3 Non-HDL Cholesterol, POC 130 mg/dL Cholesterol Total, POC 208 mg/dL Capillary blood 06/27/2024 2 :41 PM SOUND ART INSTRUCTOR us Vijay Torres MD POINT OF CARE TEST ORDERABLES Fi nal Result * T3, free (06/27/2024) Blood 06/27/2024 Vijay Torres MD LAB BLOOD ORDERABLES Final Resul t EXTERNAL LAB from Last 3 Months Insurance [employer] [place] [address] Care Teams Health Social Work Professor Relationship Specialty Start Date End Date Ana Maria Trammell NP [address] [place] [address] PCP - General Cardiovascular Disease 11/29/23 Thi Montelongo MD [address]22 [address] [address] Referring Physician Gynecology 07/05/24
--- OUTSIDE RECORDS SUMMARY | 2024-09-03 18:38 | XMS_ITS | Clinical Summary ---
Author Organization [facility] Runner Address [address] [place] [address] Care Team Providers Care Chief Minister Name Role Phone Sidney Crawford MD Primary Care Provider [phone] Source Comments [facility],non-owned Affiliates and Associated Physician Practices is amultiple site organization consisting of ambulatory clinics and hospital sitesin [place], [place], [place] and [place]. This disclosure is being madepursuant to the Care Everywhere program and may not contain all information available regarding this patient. Last updated 18.[facility] Allergies Active Allergy Reactions Criticality Noted Date [...] fluticasone propionate (Flonase) 50 MCG/ACT nasal spray [place] 2 (two) sprays into each nostril once [...] CDT Respiratory Rate 16 06/23/2015 4:20 PM CAMPAIGN MANAGEMENT SENIOR MANAGER Oxygen Saturation 91% 12/21/2023 1:55 PM CDT [...] PANEL (CALCIUM TOTAL) Routine 06/10/2015 11:49 AM CAMPAIGN MANAGEMENT SENIOR MANAGER from Last 3 Months or Most Recently Relevant to Health Maintenance Results * BASIC METABOLIC PANEL (CALCIUM TOTAL) (06/10/2015 11:49 AM CAMPAIGN MANAGEMENT SENIOR MANAGER) BUN 13 7 - 26 mg/dL [facility] Creatinine 0.9 0.6 - 1.2 mg/dL [facility] Sodium 141 136 - 145 mmol/L [facility] Potassium 3.8 3.5 - 4.5 mmol/L [facility] Chloride 102 98 - 107 mmol/L [facility] CO2 28 22 - 29 mmol/L [facility] Glucose 86 70 - 115 mg/dL [facility] Calcium 9.5 8.4 - 10.2 mg/dL [facility] Anion Gap 15 8 - 18 [facility] BUN/Creatinine Ratio 14 7 - 23 [facility] Osmolality Calculated 277 270 - 300 mOsm/kg [facility] eGFR >60 >60 mL/min/1.7 3 m2 [facility] Blood specimen (specimen) BLOOD SPECIMEN / Unknown 06/10/2015 11:49 AM CAMPAIGN MANAGEMENT SENIOR MANAGER 06/10/2015 12:36 PM CAMPAIGN MANAGEMENT SENIOR MANAGER Soto De Oliveira MD LAB - CHEMISTRY EDWARDO LEW[facility] [place] Organization Address City/State/ZIP Co de Phone Number [facility] [address] [phone] from Last 3 Months or Most Recently Relevant to Health Maintenance Care Teams Chief Minister Relationship Specialty Start Date End Date Sidney Crawford MD [facility] [place] [id number] PCP - General 01/26/21
--- OUTSIDE RECORDS SUMMARY | 2024-09-03 18:38 | XMS_ITS | Patient Health Summary ---
Author Organization [facility] Address [address] [place] [address] Care Team Providers Care Forcer Maker Name Role Phone Sidney Crawford MD Primary Care Provider [phone] [facility],non-owned Affiliates and Associated Physician Practices is amultiple site organization consisting of ambulatory clinics and hospital sitesin [place], [place], [place] and [place]. This disclosure is being madepursuant to the Care Everywhere program and may not contain all information available regarding this patient. Last updated 18.[facility] Allergies * Contrast-Iodinated Agents For Ct/Other(Skin Reactions) [...] propionate (Flonase) 50 MCG/ACT nasal spray(Started 12/21/2023) [place] 2 (two) sprays into each nostril once [...] CDT Respiratory Rate 16 06/23/2015 4:20 PM BIOLOGY TEACHER Oxygen Saturation 91% 12/21/2023 1:55 PM CDT [...] AMINTA OTERO on 03/05/2021 12:51 PM . Narrative [...] SPINE 2 OR 3VW (09/03/2015 8:23 AM BIOLOGY TEACHER) Only the most recent of3 resultswithin the time period is included. Anatomical Region Laterality Modality Spine Other Impressions 09/03/2015 11:21 AM BIOLOGY TEACHER Impression: Moderate to severe lumbar levoscoliosis and degenerative disc and joint disease, unchanged. Report dictated by Master Castillo MD (director of radiology). This report was approved by Master Castillo M.D. on 09/03/2015 9:[address] PABLO Rabago M.D. have personally reviewed and interpreted this examination/study. This report was electronically signed by PABLO ALONSO M.D. on 09/03/2015 11:21 AM . Narrative 09/03/2015 11:21 AM BIOLOGY TEACHER Exam: Lumbar spine, 2 views Date: 09/03/2015 [...] unchanged. Report dictated by Master Castillo MD (director of radiology). This report was approved by Master Castillo M.D. on 09/03/2015 9:[address] PABLO Rabago M.D. have personally reviewed and interpreted thisexamination/study. This report was electronically signed by PABLO ALONSO M.D. on09/03/2015 11:21 AM . Soto De Oliveira MD DIAGNOSTIC IMAGING O RDERABLES * XR SCOLIOSIS 1VW (07/09/2015 9:18 AM BIOLOGY TEACHER) Only the most recent of2 resultswithin the time period is included. Anatomical Region Laterality Modality Spine Other Impressions 07/09/2015 12:15 PM BIOLOGY TEACHER Impression: Moderate to severe thoracolumbar scoliosis, unchanged. Report dictated by Sunady Robledo MD (resident). This report was approved by Sunday Robledo on 07/09/2015 11:34 AM . [place], Dr. PABLO ALONSO M.D. have personally reviewed and interpreted this examination/study. This report was electronically signed by PABLO ALONSO M.D. on 07/09/2015 12:15 PM . Narrative 07/09/2015 12:15 PM BIOLOGY TEACHER Exam: Scoliosis Study History: 54-year-old male with [...] * FL MIGDALIA SURGERY (06/23/2015 2:38 PM BIOLOGY TEACHER) Anatomical Region Laterality Modality Other Narrative 06/23/2015 2:38 PM BIOLOGY TEACHER Fluoroscopy was used for this exam. Please see the Operative report. Procedure Note ProviderVonda MD - 10/08/2017 Fluoroscopy was used for this exam. Please see the Operative report. Soto De Oliveira MD FLUOROSCOPY ORDERABL ES * TYPE + SCREEN PANEL (06/23/2015 12:25 PM BIOLOGY TEACHER) Typem A POS [facility] Antibody Screen NEG [facility] Blood specimen (specimen) 06/23/2015 12:25 PM BIOLOGY TEACHER 06/23/2015 12:42 PM BIOLOGY TEACHER Soto De Oliveira MD LAB - BLOOD BANK ORD ERABLES [facility] [address] [place] [address], [facility] * HEMOGLOBIN A1C (06/10/2015 4:15 PM BIOLOGY TEACHER) Hemoglobin A1c 5.5 4.4 - 6.3 % [facility] Estimated Average Glucose 111 mg/dL [facility] Comment: HbA1c Interpretation: Treatment target values recommended by ADA and other clinical organizations should be used to evaluate metabolic control in patients. Treatment Target Values: Normal : < 5.7% Pre-diabetes: 5.7-6.4% Diabetes: Equal to or greater than 6.5% Reference: [place] [employer] Standards of Care in Diabetes -2014 In patients 70 years and older consider HbA1c target range of 7.0-7.5% Reference: Diabetes Mellitus in Older People: Position Statement on behalf of the International Association of Gerontology and Geriatrics (IAGG), the Diabetes Working Constitution Party for Older People (EDWPOP), and the International Task Force of Experts in Diabetes. Carlin Mays et al. J [employer]. 2012 Test results diagnostic [...] BLOOD SPECIMEN / Unknown 06/10/2015 4:15 PM BIOLOGY TEACHER 06/10/2015 4:36 PM BIOLOGY TEACHER Aldair Dunlap DO LAB - CHEMISTRY ORD ERABLES [facility] [address] [place] [address] * (ABNORMAL) URINALYSIS REFLEX TO MICROSCOPIC NO CULTURE (06/10/2015 11:49 AM BIOLOGY TEACHER) Color UA Yellow Straw, Yellow, Colorless, Light Yellow [facility] Clarity UA Hazy(A) Clear [facility] Specific [place] UA 1.017 1.001 - 1.030 [facility] pH UA 5.5 5.0 - 8.0 [facility] Protein UA Negative <=20 mg/dL [facility] Glucose UA 50(A) Negative mg/dL [facility] Ketone UA Negative Negative mg/dL [facility] Bilirubin UA Negative Negative mg/dL [facility] Blood UA Negative Negative [facility] Nitrite UA Negative Negative [facility] Leukocyte Esterase Negative Negative [facility] Urobilinogen UA <2.0 <2.0 mg/dL [facility] RBC UA 4 0 - 8 /HPF [facility] WBC UA <1 0 - 2 /HPF [facility] Bacteria UA Rare Rare, Occasional, None /HPF [facility] Squamous Epithelial Cells UA 1 0 - 1 /HPF [facility] Mucus UA Few(A) None /LPF [facility] Urine specimen (specimen) URINE SPECIMEN OBTAINED BY CLEAN CATCH PROCEDURE / Unknown 06/10/2015 11:49 AM BIOLOGY TEACHER 06/10/2015 12:36 PM BIOLOGY TEACHER Soto De Oliveira MD LAB - URINALYSIS ORD ERABLES [facility] [address] [phone] * (ABNORMAL) CBC W AUTO DIFFERENTIAL (06/10/2015 11:49 AM BIOLOGY TEACHER) Only the most recent of2 resultswithin the time period is included. WBC 8.3 3.5 - 10.5 10 3/uL [facility] RBC 4.51 3.90 - 5.00 10 6/uL [facility] Hemoglobin 14.0 12.0 - 15.5 g/dL [facility] Hematocrit 41.2 35.0 - 45.0 % [facility] MCV 91.4 81.0 - 97.0 fL [facility] MCH 31.0 28.0 - 34.0 pg [facility] MCHC 34.0 32.0 - 36.0 g/dL [facility] Platelet Count 364 150 - 400 10 3/uL [facility] RDW-SD 42.7 36.0 - 50.0 fL [facility] RDW-CV 12.7 11.2 - 14.8 % [facility] MPV 9.7 9.3 - 12.8 fL [facility] Neutrophils % 45.6 35.0 - 70.0 % [facility] Lymphocytes % 41.1 19.7 - 55.1 % [facility] Monocytes % 9.4 3.0 - 15.0 % [facility] Eosinophils % 3.3 0.0 - 6.0 % [facility] Basophil % 0.6 0.0 - 1.5 % [facility] Neutrophils Absolute 3.8 1.6 - 7.0 10 3/uL [facility] Lymphocyte Absolute 3.4(H) 0.8 - 2.9 10 3/uL [facility] Monocytes Absolute 0.78(H) 0.14 - 0.66 10 3/uL [facility] Eosinophils Absolute 0.27(H) 0.00 - 0.22 10 3/uL [facility] Basophils Absolute 0.05 0.00 - 0.06 10 3/uL [facility] Immature Granulocytes % 0.1 0.0 - 1.0 % [facility] Blood specimen (specimen) BLOOD SPECIMEN / Unknown 06/10/2015 11:49 AM BIOLOGY TEACHER 06/10/2015 12:36 PM BIOLOGY TEACHER Soto De Oliveira MD LAB - HEMATOLOGY ORD ERABLES Performing Organization Address [facility]/ZIP Co de Phone Number [address] [phone] * BASIC METABOLIC PANEL (CALCIUM TOTAL) (06/10/2015 11:49 AM BIOLOGY TEACHER) BUN 13 7 - 26 mg/dL [facility] Creatinine 0.9 0.6 - 1.2 mg/dL [facility] Sodium 141 136 - 145 mmol/L [facility] Potassium 3.8 3.5 - 4.5 mmol/L [facility] Chloride 102 98 - 107 mmol/L [facility] CO2 28 22 - 29 mmol/L [facility] Glucose 86 70 - 115 mg/dL [facility] Calcium 9.5 8.4 - 10.2 mg/dL [facility] Anion Gap 15 8 - 18 [facility] BUN/Creatinine Ratio 14 7 - 23 [facility] Osmolality Calculated 277 270 - 300 mOsm/kg [facility] eGFR >60 >60 mL/min/1.7 3 m2 [facility] Blood specimen (specimen) BLOOD SPECIMEN / Unknown 06/10/2015 11:49 AM BIOLOGY TEACHER 06/10/2015 12:36 PM BIOLOGY TEACHER Soto De Oliveira MD LAB - CHEMISTRY ORDMati LEWIS Performing Organization Address [facility] Co de Phone Number [address] [phone] * XR CHEST 2VW (06/10/2015 11:48 AM BIOLOGY TEACHER) Anatomical Region Laterality Modality Chest Other Impressions 06/10/2015 3:12 PM BIOLOGY TEACHER Impression: No acute pulmonary disease. Report dictated by Master Castillo MD (director of radiology). This report was approved by Master Castillo M.D. on 06/10/2015 2:25 PM . I, Dr. ZARINA FUNES M.D. have personally reviewed and interpreted this examination/study. This report was electronically signed by ZARINA FUNES M.D. on 06/10/2015 3:12 PM . Narrative 06/10/2015 3:12 PM BIOLOGY TEACHER Exam: Chest X-ray, 2 views Date: 06/10/2015 [...] disease. Report dictated by Master Castillo MD (director of radiology). This report was approved by Master Castillo M.D. on 06/10/2015 2:25 PM . I, Dr. ZARINA FUNES M.D. have personally reviewed and interpreted thisexamination/study. This report was electronically signed by ZARINA FUNES M.D. on 06/10/20153:12 PM . Soto De Oliveira MD DIAGNOSTIC IMAGING O RDERABLES * EKG 12-LEAD (06/10/2015 12:00 AM BIOLOGY TEACHER) 06/10/2015 Nadya Thomas MD ECG ORDERABLES [facility] * MRI LUMBAR SPINE WO CONTRAST [...] This report was electronically signed by ZE CHAUDAHRI M.D. on 05/09/2015 11:18 AM . Narrative [...] are 11 rib-bearing thoracic vertebrae and 6 eeg-tcq-fmsfkra vertebrae. These agc-aap-mpwgued vertebrae will be referred to as L1 Through L5 with a lumbarized S1. This numbering scheme is similar to prior studies. On the sagittal T2 gallery manager images, there is moderate degenerative disc disease [...] are 11 rib-bearing thoracic vertebrae and 6 nlf-owg-jaqkhdhwaxgibkya. These trk-dfm-auwersg vertebrae will be referred to as Q5Rptompe L5 with a lumbarized S1. This numbering scheme is similar to priorstudies. On the sagittal T2 gallery manager images, there is moderate degenerative discdisease at [...] neural foraminal stenoses at the L5-S1 and S1-Y2szcxin. 2. No spinal canal stenosis or neural [...] are 11 rib-bearing thoracic vertebrae and 6 kdb-sff-qfodspk vertebrae. These glz-jii-hntxaxu vertebrae will be referred to as L1 Through L5 with a lumbarized S1. This numbering scheme is similar to prior studies. On the sagittal T2 gallery manager images, there is moderate degenerative disc disease [...] are 11 rib-bearing thoracic vertebrae and 6 xbx-sin-vvcyijshapagfzre. These hle-tpg-ilkllwn vertebrae will be referred to as F3Rupwcyd L5 with a lumbarized S1. This numbering scheme is similar to priorstudies. On the sagittal T2 gallery manager images, there is moderate degenerative discdisease at [...] neural foraminal stenoses at the L5-S1 and S1-W0kbbylu. 2. No spinal canal stenosis or neural [...] disc disease at C5-6 and C6-7, progressed [id number]. This report was electronically signed by MARUCS GALINDO MD on 03/10/20155:46 PM . Han Spring MD DIAGNOSTIC IMAGING O RDERABLES * HCG URINE QUALITATIVE - POCT (IP) [facility] (02/11/2014 2:57 PM CDT) NEGATIVE [facility] RALS (BEAKER) Comment:Coke Drawer: LORI ROBBINS 02/11/2014 2:57 PM CDT Han [...] neuroforaminal stenosis at L3-4 as well as tlghggqw-uc-gbuclq left neural foraminal stenosis at L5-S1 and [...] The patient was then transferred to the resident care assistant unit for further observation and 3 of [...] and moderate left facet osteoarthritis. There is jegnbsfi-vj-hoeiak right neural foraminal stenosis. There is no neural foraminal stenosis on the left. L4-5: There is diffuse disc bulge with focal central protrusion. Ligamentum flavum hypertrophy is present. There is moderate central canal stenosis. There is mild bilateral facet osteoarthritis. There is no neural foraminal stenosis. L5-S1: There is diffuse disc bulge. There is ytnj-cg-rzkocgkq central canal stenosis. There is mild right and moderate left bilateral facet osteoarthritis. There is no right neural foraminal stenosis but there is csohslis-yc-geximi left neural foraminal stenosis. S1-2: There is diffuse disc bulge. There is moderate central canal stenosis. There is mild right and moderate left facet osteoarthritis. There is no right neural foraminal stenosis but there is kmxgqgjy-di-kszqad left neural foraminal stenosis. Procedure Note Lee [...] well.The patient was then transferred to the resident care assistant unit for furtherobservation and 3 of bedrest. [...] at L5-S1. Left lateral translation of the Z0wewccnbcf body with respect to L4 measures 7 [...] right andmoderate left facet osteoarthritis. There is lpjgiewi-fy-zsavac rightneural foraminal stenosis. There is no neural foraminal stenosis on the left. L4-5: There is diffuse disc bulge with focal central protrusion.Ligamentum flavum hypertrophy is present. There is moderate central canalstenosis. There is mild bilateral facet osteoarthritis. There is no neuralforaminal stenosis. L5-S1: There is diffuse disc bulge. There is iplv-ft-pusitqjm centralcanal stenosis. There is mild right and moderate left bilateral facetosteoarthritis. There is no right neural foraminal stenosis but there rarpnjyfns-zm-fbapnh left neural foraminal stenosis. S1-2: There is diffuse disc bulge. There is moderate central canalstenosis. There is mild right and moderate left facet osteoarthritis.There is no right neural foraminal stenosis but there zlimgfdicz-jo-llraat left neural foraminal stenosis. IMPRESSION IMPRESSION: 1. [...] right neuroforaminal stenosis at L3-4 as well osrhxlfzri-te-gpykbo left neural foraminal stenosis at L5-S1 and [...] neuroforaminal stenosis at L3-4 as well as tcdteuyl-dw-nwsjda left neural foraminal stenosis at L5-S1 and [...] on 02/11/2014 1:[address] LEE Rabgao M.D. have personally reviewed and interpreted this [...] The patient was then transferred to the resident care assistant unit for further observation and 3 of [...] and moderate left facet osteoarthritis. There is xoviespx-ih-uqasyi right neural foraminal stenosis. There is no neural foraminal stenosis on the left. L4-5: There is diffuse disc bulge with focal central protrusion. Ligamentum flavum hypertrophy is present. There is moderate central canal stenosis. There is mild bilateral facet osteoarthritis. There is no neural foraminal stenosis. L5-S1: There is diffuse disc bulge. There is btmw-mj-myllhtlq central canal stenosis. There is mild right and moderate left bilateral facet osteoarthritis. There is no right neural foraminal stenosis but there is mvanrccg-if-epdtjc left neural foraminal stenosis. S1-2: There is diffuse disc bulge. There is moderate central canal stenosis. There is mild right and moderate left facet osteoarthritis. There is no right neural foraminal stenosis but there is bmsyxlnu-bi-bjnrfz left neural foraminal stenosis. Procedure Note Lee [...] well.The patient was then transferred to the resident care assistant unit for furtherobservation and 3 of bedrest. [...] at L5-S1. Left lateral translation of the Z6hktkwvsop body with respect to L4 measures 7 [...] right andmoderate left facet osteoarthritis. There is ulxxxzhu-ut-uwjpmb rightneural foraminal stenosis. There is no neural foraminal stenosis on the left. L4-5: There is diffuse disc bulge with focal central protrusion.Ligamentum flavum hypertrophy is present. There is moderate central canalstenosis. There is mild bilateral facet osteoarthritis. There is no neuralforaminal stenosis. L5-S1: There is diffuse disc bulge. There is eiph-vn-ixfktlsm centralcanal stenosis. There is mild right and moderate left bilateral facetosteoarthritis. There is no right neural foraminal stenosis but there ltuxoobitv-uy-weuvjq left neural foraminal stenosis. S1-2: There is diffuse disc bulge. There is moderate central canalstenosis. There is mild right and moderate left facet osteoarthritis.There is no right neural foraminal stenosis but there wigqresaiz-sh-xnwygo left neural foraminal stenosis. IMPRESSION IMPRESSION: 1. [...] right neuroforaminal stenosis at L3-4 as well gkwijlxaju-as-xiypnk left neural foraminal stenosis at L5-S1 and [...] Spring MD FLUOROSCOPY ORDERABL ES Care Teams Forcer Maker Relationship Specialty Start Date End Date Sidney Crawford MD [address] [place] [address] [address] [place] [phone] PCP - General 01/26/21
--- OUTSIDE RECORDS SUMMARY | 2024-09-03 18:38 | XMS_ITS | Referral Summary ---
Author Organization [facility] [employer] Address [address] [place] [address] Care Team Providers Care Legger Press Operator Name Role Phone Sidney Crawford MD Primary Care Provider [phone] Source Comments [facility] [employer],non-owned Affiliates and Associated Physician Practices is amultiple site organization consisting of ambulatory clinics and hospital sitesin [place], [place], [place] and [place]. This disclosure is being madepursuant to the Care Everywhere program and may not contain all information available regarding this patient. Last updated 18.[facility] [employer] Allergies Active Allergy Reactions Criticality Noted Date [...] fluticasone propionate (Flonase) 50 MCG/ACT nasal spray [place] 2 (two) sprays into each nostril once [...] CDT Respiratory Rate 16 06/23/2015 4:20 PM STATION MANAGER Oxygen Saturation 91% 12/21/2023 1:55 PM [...] PANEL (CALCIUM TOTAL) Routine 06/10/2015 11:49 AM STATION MANAGER from Last 3 Months or Most Recently Relevant to Health Maintenance Results * BASIC METABOLIC PANEL (CALCIUM TOTAL) (06/10/2015 11:49 AM STATION MANAGER) BUN 13 7 - 26 mg/dL [facility] Creatinine 0.9 0.6 - 1.2 mg/dL [facility] Sodium 141 136 - 145 mmol/L [facility] Potassium 3.8 3.5 - 4.5 mmol/L [facility] Chloride 102 98 - 107 mmol/L [facility] CO2 28 22 - 29 mmol/L [facility] Glucose 86 70 - 115 mg/dL [facility] Calcium 9.5 8.4 - 10.2 mg/dL [facility] Anion Gap 15 8 - 18 [facility] BUN/Creatinine Ratio 14 7 - 23 [facility] Osmolality Calculated 277 270 - 300 mOsm/kg [facility] eGFR >60 >60 mL/min/1.7 3 m2 [facility] Blood specimen (specimen) BLOOD SPECIMEN / Unknown 06/10/2015 11:49 AM STATION MANAGER 06/10/2015 12:36 PM STATION MANAGER Soto De Oliveira MD LAB - CHEMISTRY EDWARDO LEWIS [facility] Organization Address City/State/ZIP Co de Phone Number [address] [phone] from Last 3 Months or Most Recently Relevant to Health Maintenance Care Teams Legger Press Operator Relationship Specialty Start Date End Date Sidney Crawford MD [address] [place] [id number] PCP - General 01/26/21
== END 2024-09-03 16:26 | disposition home or self-care (01) ==
PROVIDERS: PCP Clinical Nurse Specialist
DX: E66.01 Morbid (severe) obesity due to excess calories (principal); E74.89 Other specified disorders of carbohydrate metabolism
CPT/HCPCS: 36415; 80061; 83036

== ENCOUNTER 2024-10-11 11:30 | Outpatient (CLI) | payer MEDICARE, SELFPAY ==
--- NOTE | ~2024-10-11 | XR_ITS ---
CHEST RADIOGRAPH, PA AND LATERAL CLINICAL HISTORY: J45.909 - Unspecified asthma, uncomplicated . COMPARISON: 05/31/2014 TECHNIQUE: PA and lateral views of the chest. FINDINGS The cardiomediastinal silhouette is unremarkable. No significant peribronchial thickening is appreciated to correspond to patient's history. The lungs are clear. IMPRESSION: No focal infiltrate or effusion. Reviewed, dictated and finalized at location A.
== END 2024-10-11 11:31 | disposition home or self-care (01) ==
LOC: GOSHIMG 11:30
PROVIDERS: PCP Nurse Practitioner; Visit Provider Nurse Practitioner
DX: J45.909 Unspecified asthma, uncomplicated (principal)
CPT/HCPCS: 71046

== ENCOUNTER 2025-01-14 09:48 | Outpatient (CLI) | payer MEDICARE, SELFPAY ==
--- OUTSIDE RECORDS SUMMARY | 2025-01-14 09:52 | XMS_ITS | Referral Summary ---
Author Organization [facility] [address] Address [address] [place] [address] Care Team Providers Care Medicare Insurance Specialist Name Role Phone Ana Maria Trammell NP Primary Care Provider [phone] Thi Montelongo MD Unavailable [phone] Encounters Date Type Department Care Team Description 12/31/2024 2:00 PM CDT Office Visit [facility] [address] [facility] [address] [place] [address] MD MARIELY (obstructive sleep apnea) (Primary Dx); Hypersomnia with sleep apnea; Morbid obesity with BMI of 40.0-44.9, adult (HCC); Dream enactment behavior 11/29/2024 Telephone [facility] Floor 8 [place] [address] Patricia Marie RN 11/29/2024 Telephone [facility] - Breast [facility] Floor 8 [place] [address] Courtney Underwood NP Medical Question/Miscellaneo us 11/28/[address] [address] Lina Hennessy, NINO Medical Records Request 11/20/[address] [address] Thi Montelongo MD Medical Records Request 10/24/2024 Telephone [facility] [address] [place] [address] Kimmie Duenas MA from Last 3 Months Allergies Active Allergy Reactions Criticality Noted Date Comments Iodinated Contrast Media Rash Medium 03/05/2021 Iodine And Iodide Containing Products Medications albuterol 2.5 mg /3 mL (0.083 %) nebulizer solution Inhale 3 mL (2.5 mg total) Active clotrimazole-be tamethasone (LOTRISONE) cream Apply topically 2 (two) times [...] D3-vitamin K2 25 mcg (1,000 unit)-90 mcg tablet,disinteg rating Take by mouth Active DULoxetine DR (CYMBALTA) 60 mg capsule Take 1 capsule (60 mg total) by mouth daily 4 Active famotidine (PEPCID) 10 mg tablet 4 Active fluticasone propion-salmete roL (ADVAIR DISKUS) 250-50 mcg/dose diskus inhaler Inhale 1 puff 2 (two) times a day 4 Active tirzepatide, weight loss, (Zepbound) 2.5 mg/0.5 mL pen injectorIndicat ions:MARIELY (obstructive sleep apnea) Inject 0.5 mL (2.5 mg total) under the skin every 7 days 2 mL 5 Active dilTIAZem CD/XR/XT (CARDIZEM CD,DILACOR XR) 120 mg 24 hr capsule Take 1 capsule (120 mg total) by mouth daily 30 capsule 11 5 09/18/19 26 Active solriamfetoL (Sunosi) 150 mg tablet TAKE 1 TABLET(150 MG) BY MOUTH DAILY 30 tablet 5 5 Active clonazePAM (KlonoPIN) 0.5 mg tablet Take 1 tablet (0.5 mg total) by mouth nightly 30 tablet 5 06/29/20 25 Active dextroamphetami ne-amphetamine (ADDERALL) 10 mg tablet Take 1 tablet (10 mg total) by mouth 2 (two) times a day 60 tablet 5 Active Active Problems Problem Noted Date Diagnosed Date MARIELY (obstructive sleep apnea) 07/20/2024 Adjustment disorder with mixed anxiety and depre ssed mood 03/31/2021 Scoliosis 02/07/2014 Spinal stenosis of lumbar re [...] on file Legal 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 Gender Identity Not on file Sexual Orientation Not on file Last Filed Vital Signs Vital Sign Reading Time Taken Comments Blood Pressure 149/94 12/31/2024 1:53 PM CDT Pulse 97 12/31/2024 1:53 PM CDT Temperature 36.7 C (98 F) 09/04/2024 10:47 AM OYSTER OPENER Respiratory Rate 18 09/04/2024 10:4 7 AM OYSTER OPENER Oxygen Saturation 95% 12/31/2024 1:53 PM CDT Inhaled Oxygen Concentration - - Weight 111.7 kg (246 lb 3.2 oz) 12/31/2024 1:53 PM CDT Height 160 cm (5' 2.99) 12/31/2024 1:53 PM CDT Body Mass Index 43.62 12/31/2024 1:53 PM CDT Plan of Treatment Not on file Procedures Procedure Name Priority Date/Time Associated Diagnosis Comments DIAGNOSTIC MAMMOGRAM BILATERAL W CHON Schedule Routine, Read Routine (OP Routine) 09/27/2024 2:03 PM CDT Mass of right breast, unspecified quadrant Subareolar mass of right breast from Last 3 Months or Most Recently Relevant to Health Maintenance Results * Diagnostic Mammogram Bilateral W Chon (09/27/2024 2:03 PM CDT) Anatomical Region Laterality Modality Breast Bilateral Mammography 09/27/2024 2:30 PM CDT Impressions 09/27/2024 2:30 PM CDT Duct ectasia appears to partly account for the palpable abnormalities in the subareolar RIGHT breast. Continued clinical follow-up is recommended. OVERALL FINAL ASSESSMENT: BI-RADS Category 2: Benign. RECOMMENDATION: 1. Annual screening mammography is recommended. 2. Clinical follow-up is recommended. Electronically signed by: Thi Barger M.D. Narrative 09/27/2024 2:30 PM CDT EXAMINATION: BILATERAL DIGITAL DIAGNOSTIC MAMMOGRAM INCLUDING CAD AND BILATERAL DIGITAL BREAST TOMOSYNTHESIS; RIGHT BREAST SONOGRAM HISTORY: 64-year-old female with 3 persistent palpable lumps near the RIGHT nipple which underwent negative diagnostic workup on 05/29/2024. She denies nipple discharge or pain. COMPARISON: 05/29/2024, 10/12/2023 and 04/21/2022, all outside mammograms TECHNIQUE: Full field digital mammographic views of BOTH breasts were performed, including computer aided detection (CAD) and BILATERAL digital breast tomosynthesis (DBT). Directed ultrasound evaluation of the RIGHT breast was performed by a trained director hris and by Dr. Barger. BREAST PARENCHYMAL COMPOSITION: There are scattered areas of fibroglandular density. MAMMOGRAM FINDINGS: No suspicious mass, grouped micro-calcification, or architectural distortion is seen within EITHER breast. Dense bands of breast tissues at or close to the skin surface appear to correlate with the palpable markers in the 12 and 6:00 positions near the RIGHT nipple. This tissue appears mammographically similar to 04/21/2022 and ultrasound will also be utilized. SONOGRAM FINDINGS: Sonography and digital patient was performed throughout the subareolar RIGHT breast. A dense band of breast tissue with small ducts appears to come close to the skin surface in the 6 o'clock position and is mildly palpable. Benign duct ectasia which is similar to the LEFT nipple is noted throughout this region. No definite intraductal mass was seen. These findings were discussed with the patient by Dr. Barger. us Courtney Underwood NP IMG MAMMO PROCEDURES Fi nal Result from Last 3 Months or Most Recently Relevant to Health Maintenance Insurance [employer] MEDICARE GOLD AETNA MEDICARE GOLD Care Teams Medicare Insurance Specialist Relationship Specialty Start Date End Date Ana Maria Trammell NP [address] [place] [address] PCP - General Cardiovascular Disease 11/29/23 Thi Montelongo MD [address] [address] Referring Physician Gynecology 07/05/24
--- OUTSIDE RECORDS SUMMARY | 2025-01-14 09:52 | XMS_ITS | Clinical Summary ---
Author Organization [facility] Address [address] [place] [address] Care Team Providers Care Powdered Sugar Supervisor Name Role Phone Sidney Crawford MD Primary Care Provider [phone] Source Comments [facility],non-owned Affiliates and Associated Physician Practices is amultiple site organization consisting of ambulatory clinics and hospital sitesin [place], [place], [place] and [place]. This disclosure is being madepursuant to the Care Everywhere program and may not contain all information available regarding this patient. Last updated 18.[facility] Allergies Active Allergy Reactions Criticality Noted Date Comments Contrast-Iodinated Agents For Ct/Other Skin Reactions 03/05/2021 Medications * Be aware that medications may not be up to date on this document. Alwaysverify current medications with the patient. DULoxetine (Cymbalta) 30 MG capsule Take 1 (one) capsule by mouth once daily Active fluticasone hfa 220 (Flovent HFA 220) 220 MCG/ACT inhaler Inhale by mouth as needed Active omeprazole EC (PriLOSEC OTC) 20 MG tablet Take 1 (one) tablet by mouth at bedtime Active losartan (Cozaar) 50 MG tablet Take 1 (one) tablet by mouth at bedtime Active clotrimazole-be tamethasone (Lotrisone) 1-0.05 % cream Apply to affected [...] fluticasone propionate (Flonase) 50 MCG/ACT nasal spray [place] 2 (two) sprays into each nostril once daily 16 g 12/21/2023 Active fluticasone-sophia meterol (Advair Diskus) 250-50 MCG/ACT inhaler Inhale 1 [...] Recorded Patient Health Questionnaire-2 Score 6 12/21/2023 Comments Unknown Sex and Gender Information Value Date Recorded Sex Assigned at Not on file Legal Sex Female 5:45 PM AIR CARGO GROUND CREW SUPERVISOR Gender Identity Not on file Sexual Orientation Not on file Last Filed Vital Signs Vital Sign Reading Time Taken Comments Blood Pressure 133/82 12/21/2023 1:55 PM CDT Pulse 111 12/21/2023 1:55 PM CDT Temperature 36.5 C (97.7 F) 12/21/2023 1:55 PM CDT Respiratory Rate 16 06/23/2015 4:20 PM AIR CARGO GROUND CREW SUPERVISOR Oxygen Saturation 91% 12/21/2023 1:55 PM CDT Inhaled Oxygen Concentration - - Weight 106.1 kg (233 lb 12.8 oz) 12/21/2023 1:55 PM CDT Height 165.1 cm (5' 5) 12/21/2023 1:55 PM CDT Body Mass Index [...] SCREENING 1962 LIPID TESTING 1962 MAMMOGRAM 1962 HIV SCREENING 1977 HEPATITIS C SCREENING 08/08/1980 DTAP/TDAP/TD VACCINES (1 - Tdap) 1981 PAP SMEAR 1983 PNEUMOCOCCAL VACCINE 50+ (1 of 1 - PCV) 2012 ZOSTER VACCINE (1 of 2) 2012 SCREENING FOR DIABETES 12/21/2023 5, 06/10/2015 COVID-19 VACCINE (1 - 2023-2 5 season) 2024 DEPRESSION SCREENING 07/11/2024 12/21/2023 MEDICARE AWV CALENDAR YEAR 2024 INFLUENZA VACCINE (Season Ended) 2025 Respiratory Syncytial Virus (RSV) Vaccine Pt: or over 60 yrs (1 - 1-dose 75+ series) 2037 HEPATITIS B VACCINE Aged Out No longe r eligible based on patient's age to complete this topic HIB VACCINE Aged Out No longer eligi ble based on patient's age to complete this topic HPV VACCINE Aged Out No longer eligi ble based on patient's age to complete this topic MENINGOCOCCAL (Group B) VACCINE SHARED DECISION-MAKING Aged Out No longer eligible based on patient's age to complete this topic MENINGOCOCCAL GROUPS A/C/Y/W VACCINE Aged Out No longer eligible b ased on patient's age to complete this topic Procedures Procedure Name Priority Date/Time Associated Diagnosis Comments BASIC METABOLIC PANEL (CALCIUM TOTAL) Routine 06/10/2015 11:49 AM AIR CARGO GROUND CREW SUPERVISOR from Last 3 Months or Most Recently Relevant to Health Maintenance Results * BASIC METABOLIC PANEL (CALCIUM TOTAL) (06/10/2015 11:49 AM AIR CARGO GROUND CREW SUPERVISOR) BUN 13 7 - 26 mg/dL [facility] Creatinine 0.9 0.6 - 1.2 mg/dL [facility] Sodium 141 136 - 145 mmol/L [facility] Potassium 3.8 3.5 - 4.5 mmol/L [facility] Chloride 102 98 - 107 mmol/L [facility] CO2 28 22 - 29 mmol/L [facility] Glucose 86 70 - 115 mg/dL [facility] Calcium 9.5 8.4 - 10.2 mg/dL [facility] Anion Gap 15 8 - 18 [facility] BUN/Creatinine Ratio 14 7 - 23 [facility] Osmolality Calculated 277 270 - 300 mOsm/kg [facility] eGFR >60 >60 mL/min/1.7 3 m2 [facility] Blood specimen (specimen) BLOOD SPECIMEN / Unknown 06/10/2015 11:49 AM AIR CARGO GROUND CREW SUPERVISOR 06/10/2015 12:36 PM AIR CARGO GROUND CREW SUPERVISOR us Soto De Oliveira MD LAB - CHEMISTRY ORDERABLES Fin al Result Performing Organization Address [facility]/State/ZIP Co de Phone Number [address] [phone] from Last 3 Months or Most Recently Relevant to Health Maintenance Insurance SELF PAY NO INSURANCE Member Subscriber Plan / Payer (Ef fective for All Dates) Name:Amalia Funez Member ID:Not on file Relation to Subscriber:Not on file Name:AMALIA FUNEZ Subscriber ID:Not on file Address: [address] [place] [id number] Payer ID:Not on file Group ID:Not on file Type:Self Pay Address: [place], [place] AETNA MEDICARE ADV Care Teams Powdered Sugar Supervisor Relationship Specialty Start Date End Date Sidney Crawford MD [facility] [place] [address] PCP - General 01/26/21
--- OUTSIDE RECORDS SUMMARY | 2025-01-14 09:52 | XMS_ITS | Clinical Summary ---
Author Organization [facility] Address [address] [place] [address] Care Team Providers Care Ream Cutter Name Role Phone Sidney Crawford MD Primary Care Provider [phone] Allergies No known active allergies Medications albuterol [...] on file Legal Sex Female 1:12 PM WHEEL WORKER Gender Identity Not on file Sexual Orientation [...] 1:32 PM CDT Height 165.1 cm (5' 5) 03/03/2021 1:32 PM CDT Body Mass Index 40.1 03/03/2021 1:32 PM CDT Plan of Treatment Health Maintenance Due Date Last Done Comments Hepatitis C Virus (HCV) Screening 1962 TdaP Immunization 1962 Colonoscopy 2007 Colorectal Cancer Screening 2007 Cologuard 2012 Immunochemical Fecal Occult Blood 2012 Pneumococcal Immunization (5 0+ years) (1 of 1 - PCV) 2012 Zoster Immunization (1 of 2) 2012 SARS-COV-2 Immunization (3 - season) 2024 06/18/2021, 10/08/2020 Influenza Immunization (Seas on Ended) 2025 Respiratory Syncytial Virus (RSV) Immunization (Adult) (1 - 1-dose 75+ series) 2037 Hepatitis B Immunization Aged Out No longer eligible based on patient's age to complete this topic Human Papillomavirus (HPV) Immunization Aged Out No longer eligible b ased [...] track(2020 1:59 PM CDT) Yes Jaren Greer, COMMUNITY ENGAGEMENT COORDINATOR Note: I want to be able to cope better with chronic pain and dealing with my daughter. Goal Reviewed today with: patient Readiness to change: Ready to change Department associated with goal: [facility] Steps to achieve goal: Patient counseled coping with chronic pain Patient counseled on accepting physical limitations Patient counseled on setting healthy boundaries with daughter Behavioral Health Behavioral Health On track(2020 2:08 PM CDT) Jaren Ayala, WES Note: Goal: Patient will be able to report improved quality of life, to an acceptable level Goal Reviewed today with: patient Readiness to change: Ready to change Department associated with goal: [facility] Steps to achieve goal: will identify at least two ways their behavioral health impacts their physical health and vice versa. will identify at least two ways/skills/habits to reduce exacerbation of co- occurring disorders. will implement at least one new way/skill/habit to reduce exacerbation of co-occurring disorders Will attend individual and/or group session at least 1x/month Insurance ID COMMERCIAL GENERIC on file MEDICARE C HUMANA Care Teams Ream Cutter Relationship Specialty Start Date End Date Sidney Crawford MD [facility] [place] [address] PCP - General Digital Tech 10/28/20
--- OUTSIDE RECORDS SUMMARY | 2025-01-14 09:52 | XMS_ITS | Clinical Summary ---
Author Organization [facility] [address] Address [address] [place] [address] Care Team Providers Care Frame Carver Spindle Name Role Phone Ana Maria Trammell NP Primary Care Provider [phone] Thi Montelongo MD Unavailable [phone] Allergies Active Allergy Reactions Criticality Noted Date [...] lumbar re gion without neurogenic claudication 02/07/2014 Encounters Date Type Department Care Team Description 12/31/2024 2:00 PM CDT Office Visit [facility] [address] [place] [address] MD MARIELY (obstructive sleep apnea) (Primary Dx); Hypersomnia with sleep apnea; Morbid obesity with BMI of 40.0-44.9, adult (HCC); Dream enactment behavior 11/29/2024 Telephone [facility] [address] Floor 8 [place] [address] Patricia Marie RN 11/29/2024 Telephone [facility] - Breast Imaging [address] [facility] Floor 8 [place] [address] Courtney Underwood NP Medical Question/Miscellaneo us 11/28/[address] [address] Lina Hennessy RN Medical Records Request 11/20/[address] [address] Thi Montelongo MD Medical Records Request 10/24/2024 Telephone [facility] [address] [place] [address] [address] [place] [address] Kimmie Duenas MA from Last 3 Months Surgical History Surgery [...] History Relation Name Comments Heart attack Father Myocardial Infa rction; Breast cancer Neg Hx Ovarian cancer Neg Hx Pancreatic cancer Neg Hx Prostate cancer Neg Hx Relation Name Status Comments Father Alive Social History Tobacco Use Types Packs/Day Years [...] on file Legal Sex Female 9:31 PM DOG LICENSE OFFICER SUPERVISOR Gender Identity Not on file Sexual Orientation Not on file Obstetrics History Para Term AB IAB SAB Ectopic Multiple Livin g Live Births 4 4 4 Date Outcome GA Total Labor Labor/2nd/3rd Weight Sex Type Anes PTL Malena A1 A5 Name Clin Term Term Term Term Last Filed Vital Signs Vital Sign Reading Time Taken Comments Blood Pressure 149/94 12/31/2024 1:53 PM CDT Pulse 97 12/31/2024 1:53 PM CDT Temperature 36.7 C (98 F) 09/04/2024 10:47 AM DOG LICENSE OFFICER SUPERVISOR Respiratory Rate 18 09/04/2024 10:4 7 AM DOG LICENSE OFFICER SUPERVISOR Oxygen Saturation 95% 12/31/2024 1:53 PM CDT Inhaled Oxygen Concentration - - Weight 111.7 kg (246 lb 3.2 oz) 12/31/2024 1:53 PM CDT Height 160 cm (5' 2.99) 12/31/2024 1:53 PM CDT Body Mass Index 43.62 12/31/2024 1:53 PM CDT Plan of Treatment Health Maintenance Due Date Last Done Comments Colon Cancer Screening-Colonoscopy 1962 Depression Screening 1962 Hepatitis C Screening 1962 DTaP/Tdap/Td Vaccine (1 - Tdap) 1973 Hepatitis B Screening 1980 Regular Well Visit/Exam 18-64 1980 Zoster Vaccine (1 of 2) 2012 Covid-19 Vaccine (3 - 2023-2 5 season) 2024 06/18/2021, 10/08/2020 Influenza Vaccine (Season Ended) 2025 Breast Cancer Screening-Mammogram 09/27/2025 09/27/2024 Pneumococcal vaccine <65 Aged Out No longer eligible based on [...] RIGHT breast was performed by a trained firestopper technician and by Dr. Barger. BREAST PARENCHYMAL COMPOSITION: [...] patient by Dr. Barger. us Courtney Underwood REGULATORY PROCESS MANAGER IMG MAMMO PROCEDURES Fi nal Result from Last 3 Months or Most Recently Relevant to Health Maintenance Insurance [facility] MEDICARE [facility] MEDICARE [facility] Care Teams Frame Carver Spindle Relationship Specialty Start Date End Date Ana Maria Trammell NP [address] [place] [id number] PCP - General Cardiovascular Disease 11/29/23 Thi Montelongo MD [address] [address] Referring Physician Gynecology 07/05/24
[2025-01-14 13:37] LABS: Alanine Aminotransferase 34 U/L (6-35); Albumin Level 4.3 g/dL (3.5-5.1); Alkaline Phosphatase 75 U/L (38-126); Anion Gap 7 mmol/L (4-12); Aspartate Amino Transferase 49 U/L (14-36); Bilirubin,Total 0.3 mg/dL (0.2-1.3); Blood Urea Nitrogen 10 mg/dL (7-17); Calcium 9.5 mg/dL (8.4-10.2); Carbon Dioxide 31 mmol/L (22-30); Chloride 103 mmol/L (98-107); Cholesterol 249 mg/dL (0-200); Estimated Glomerular Filt Rate > 60; Glucose 117 mg/dL (65-110); HDL Direct 70 mg/dL; Potassium 4.5 mmol/L (3.4-5.0); Sodium 141 mmol/L (137-145); Total Protein 7.4 g/dL (6.3-8.2); Triglycerides 102 mg/dL (<150)
[2025-01-14 17:36] LABS: Hemoglobin A1C 6.4 % (<5.7)
== END 2025-01-14 09:49 | disposition home or self-care (01) ==
PROVIDERS: PCP Nurse Practitioner; Visit Provider Nurse Practitioner
DX: E11.9 Type 2 diabetes mellitus without complications (principal)
CPT/HCPCS: 36415; 80053; 80061; 83036

== ENCOUNTER 2025-03-05 15:03 | Outpatient (CLI) | payer MEDICARE, SELFPAY ==
--- NOTE | ~2025-03-05 | MR_ITS ---
EXAMINATION: MR lumbar spine wo con DATE: 03/07/2025 11:56 CDT INDICATION: Low back pain TECHNIQUE: Biplanar, multisequence images of the lumbar spine were obtained. COMPARISON: None FINDINGS: There is desiccation throughout the lumbar spine. Moderate to severe joint space narrowing at the L3-4, 4 5 and L5-S1 levels. Severe intervertebral disc space narrowing at the L1-L2 and L2-3 levels. Tip of the conus medullaris ends at the L1 level. No abnormal signal identified in the spinal cord. Severe levoconvex curvature of the lower thoracic and lumbar spine. At the L2-3 level, there is a moderate-sized posterior disc osteophyte complex with degenerative change in the facet joints and hypertrophy of the ligamentum flavum causing moderate narrowing of the spinal canal. Mild to moderate narrowing of the bilateral neural foramen. At the L3-4 level, there is a moderate-sized broad-based disc bulge. Grade 1 retrolisthesis of L3 on L4. Degenerative change in the facet joints and hypertrophy of the ligamentum flavum causing moderate to severe narrowing of the spinal canal. Moderate to severe narrowing of the left lateral recess. Moderate narrowing of the right lateral recess. Moderate narrowing of the right neural foramen. Severe narrowing of the left neural foramen. At the L4-L5 level, no disc bulge. Degenerative change in the facet joints and hypertrophy of the ligamentum flavum. Moderate to severe narrowing of the left neural foramen. Mild narrowing of the right neural foramen. Mild narrowing of the spinal canal. At the L5-S1 level. Small left lateral disc protrusion. Mild narrowing of the spinal canal. Mild to moderate narrowing of the right neural foramen. Severe narrowing of the left lateral recess and left neural foramen. IMPRESSION: 1. Multilevel discogenic and degenerative change in the lumbar spine as detailed above. 2. Severe levoconvex curvature of the lower thoracic and lumbar spine. Reviewed, dictated and finalized at location Q. IMPRESSION: 1. Multilevel discogenic and degenerative change in the lumbar spine as detaile d above. 2. Severe levoconvex curvature of the lower thoracic and lumbar spine.
--- NOTE | ~2025-03-05 | XR_ITS ---
EXAMINATION: SACRUM/COCCYX DATE: 03/05/2025 15:54 INDICATION: Tail bone pain and low back pain after fall TECHNIQUE: Three views sacrum/coccyx FINDINGS: There is no displaced fracture of the sacrum. The coccyx demonstrates overall normal morphology without acute angulation.There is severe lower lumbar spondylosis with levoscoliosis partially visualized. Mild symmetric degenerative changes of the sacroiliac joints. IMPRESSION: 1. No acute displaced osseous abnormality of the sacrum. Suspicion for occult or nondisplaced sacral fracture can either be evaluated with CT or MRI. 2. Grossly normal morphology to the coccyx without acute angulation. However, due to the wide range of normal variation of the coccyx, acute injury would be best evaluated by clinical examination and patient's symptoms. Reviewed, dictated and finalized at location O.
--- NOTE | ~2025-03-05 | XR_ITS ---
EXAMINATION: XR lumbar spine 6V w bending DATE: 03/05/2025 15:54 INDICATION: Radiculopathy, lumbar region TECHNIQUE: 7 images of the lumbar spine were obtained COMPARISON: None. FINDINGS: Bones appear osteopenic. Please note that osteopenia limits sensitivity for detecting fractures by radiographs. MRI or bone scan can be obtained if clinically indicated. Moderate to severe levoconvex curvature of the thoracolumbar spine. There is bowel gas and stool projecting over the pelvis which limits evaluation. Possible gastric band.Correlate clinically. The study is severely limited due to osteopenia, the patient imaging characteristics and overlying structures. Extensive intervertebral joint space narrowing throughout the visualized spine. Evaluation for a compression fracture is severely limited due to limitations of this study. Consider an MRI of the lumbar spine for further assessment. IMPRESSION: 1.The study is severely limited due to osteopenia, the patient imaging characteristics and overlying structures. Extensive intervertebral joint space narrowing throughout the visualized spine. Evaluation for a compression fracture is severely limited due to limitations of this study. Consider an MRI of the lumbar spine for further assessment. Reviewed, dictated and finalized at location Q. IMPRESSION: 1.The study is severely limited due to osteopenia, the patient imaging characte ristics and overlying structures. Extensive intervertebral joint space narrowin g throughout the visualized spine. Evaluation for a compression fracture is sev erely limited due to limitations of this study. Consider an MRI of the lumbar s pine for further assessment.
== END 2025-03-05 15:04 | disposition home or self-care (01) ==
LOC: MICIMG 15:05
PROVIDERS: PCP Nurse Practitioner; Visit Provider Nurse Practitioner Adult Health
DX: M54.16 Radiculopathy, lumbar region (principal); M48.061 Spinal stenosis, lumbar region without neurogenic claudication; M47.816 Spondylosis without myelopathy or radiculopathy, lumbar region; M46.1 Sacroiliitis, not elsewhere classified
CPT/HCPCS: 72114; 72148; 72220

== ENCOUNTER 2025-04-08 13:30 | Outpatient (RCR) | payer MEDICARE, SELFPAY ==
--- NOTE | 2025-03-06 13:34 | OPREHPOC ---
Outpatient Therapy Plan of Care This is a Multidisciplinary Plan of Care that may contain components documented by all disciplines (PT, OT, and ST.) PT Problem 1 PT Problem #1 Knowledge Deficit PT Goal 1 Goal / Goal Update 1* independent with HEP 2* correct body mechanics with lifting from the floor Target Visit 8 PT Problem 2 PT Problem #2 Pain PT Goal 1 Goal / Goal Update 1* pt report pain rating at worst of 3/10 2* radicular pain to L mid thigh at worst 3* pt report standing/walking tolerance of 10 minutes 4* pt report with sleeping, awaken 3x/night due to pain Target Visit 8 PT Problem 3 PT Problem #3 Impaired Flexibility PT Goal 1 Goal / Goal Update increase flexibility of anterior hip-quad, to decrease pull on hips and lumbar spine: supine with leg over edge of mat, knee flexion 110 ' 1* R 2* L Target Visit 8 PT Problem 4 PT Problem #4 Impaired Strength PT Goal 1 Goal / Goal Update Increase strength of trunk and hips, to improve stability to spine and hips: 1* 2 minute walking test distance of 450' 2* L single leg standing x 20 seconds with good stability 3* pt able to tolerate 45 minutes of aquatic exercises Target Visit 8
--- NOTE | 2025-03-06 13:34 | PTOPEVAL1 ---
Assessment and note entered by Ceci Wilson, PT Evaluation Information Assessment Status Evaluation ICD-10 Condition Codes (PT) Pain in low back M54.50,Radiculopathy, lumbar region M54.16 Onset October 26, 2024 Subjective Information chronic issues with back pain, in October right before [place] had more pain on L side; under care of pain management: trial of different meds- not help; trial spinal stimulator- made it worse; walking and standing for few minutes only; bending over really hurts--use wheeled stool to get around and do things in the kitchen; had PT at another facility: electrical stim not help, nothing really helped her pain; have not had traction for her back or aquatic exercises; had MRI and x rays yesterday, do not have results yet. activity: not working outside of home; is not able to do house work--daughter does; Reported Pain Level Pain Score 3: Self Report Additional Pain Score Comments pain range in the past week 2-5/10; ache in back, sometimes gouges on L side of low back, radicular L LE lateral hip to lateral distal to knee; increase pain: standing and bend forward, walking/ standing 5 minutes; activity, house work decrease pain: sit, hang with arms on bed and legs hanging over edge of bed report with sleeping, awaken due to back pain 4-5 x/night does not use heat,ice- do not help pain meds--not help, occasional OTC but not really make any difference Assessment PT Clinical Summary Amalia has the diagnosis of lumbar radiculopathy and spinal stenosis. Pain is radicular into L LE to below her knee. She has history of chronic neck and back pain, lumbar discectomy in 2014. Back Index self rating of 52% limitation in activity level. She does not work outside of the home. She is under the care of pain management and had MRI and x rays yesterday, but do not have the results yet. With the evaluation: she has poor standing posture of trunk and hips; pain in increased with supine R and L hip flexion and IR motions; she is not able to tolerate prone; tightness over both anterior hip-quad muscles; 2 minute walking test distance of 410' with pain increase to 5/10; weakness of R LE with single leg standing R 25/L 6 seconds. Skilled PT services are indicated for land and aquatic therapy, to increase trunk and hip strength and flexiblity, modalities PRN for pain control and education for HEP, posture and body mechanics. Plan of Care Interventions Aquatic Therapy,Electrical Stimulation,Hot Pack/ Cold Pack,Manual Therapy,Mechanical Traction,Neuro Re-education,Patient/Caregiver Education, Therapeutic Activities,Therapeutic Exercise, Ultrasound,Other Other Interventions taping PT Services Indicated Yes Treatment Frequency and 1-2x/wk for 8 visits--land and aquatic sessions Duration These treatments will address the objective and functional deficits as defined above. The patient will be advanced safely and appropriately in order for the patient to progress towards his/her prior level of function. Additional exercises will be introduced and as well as a comprehensive home exercise program upon discharge, if needed, ?to ensure carryover of functional gains achieved in the clinic. This treatment plan has been reviewed and agreement upon by the patient.
--- NOTE | 2025-04-08 14:29 | OPREHPOC ---
Outpatient Therapy Plan of Care This is a Multidisciplinary Plan of Care that may contain components documented by all disciplines (PT, OT, and ST.) PT Problem 1 PT Problem #1 Knowledge Deficit PT Goal 1 Goal / Goal Update 1* independent with HEP 2* correct body mechanics with lifting from the floor 04-08-25 progress goals met continue to progress HEP and education Target Visit 16 PT Problem 2 PT Problem #2 Pain PT Goal 1 Goal / Goal Update 1* pt report pain rating at worst of 3/10 2* radicular pain to L mid thigh at worst 3* pt report standing/walking tolerance of 10 minutes 4* pt report with sleeping, awaken 3x/night due to pain 04-08-25 progress goals not met: #1 6/10; #2 to below knee; #3- 5 minutes; #4, 4-6x/night continue towards goals Target Visit 16 PT Problem 3 PT Problem #3 Impaired Flexibility PT Goal 1 Goal / Goal Update increase flexibility of anterior hip-quad, to decrease pull on hips and lumbar spine: supine with leg over edge of mat, knee flexion 110 ' 1* R 2* L 04-08-25 progress goals not met; #1 80'; #2 70' continue towards goals Target Visit 16 PT Problem 4 PT Problem #4 Impaired Strength PT Goal 1 Goal / Goal Update Increase strength of trunk and hips, to improve stability to spine and hips: 1* 2 minute walking test distance of 450' 2* L single leg standing x 20 seconds with good stability 3* pt able to tolerate 45 minutes of aquatic exercises 04-08-25 progress goals 1 and 3 met Target Visit 8 Progress Partially Met PT Goal 2 Goal / Goal Update 04-08-25 progress NEW GOALS: 1* L single leg standing x 20 seconds with good stability 2* 2 minute walking test distance of 500' 3* pain rating after walking 2 minutes of 4/10 Target Visit 16
--- NOTE | 2025-04-08 14:29 | PTOPPROG ---
Assessment and note entered by Ceci Wilson, PT Assessment Status Progress ICD-10 Condition Codes (PT) Pain in low back M54.50,Radiculopathy, lumbar region M54.16 Onset October 26, 2024 Subjective Information pain in the back is about the same; therapy has not really helped much; the water exercises made her sore and think she was really weak, had to recover the next day from the exercises; everything hurts, hard to tell if it is back pain, fibromyalgia pain or other pain; pain is relieved for little bit with lying on back and tipping hips back; have been doing the exercises and stretching; see the pain management dr later this week, hoping to get the spinal injections; walking and standing are limited and hurt, cannot walk through grocery store; frustrated with pain; PAIN: range of 2-6/10 in the past week; bilateral low back and lateral hips, intermittent to L LE to distal to lateral knee increase pain: report standing/walking 5 minutes at max decrease pain: posteriori pelvic tilt, stretching back by hanging with legs over edge of bed is not taking any pain meds; heat and ice do not help; taking cymbalta and that helps a little; also marijuana vaping helps muscles relax; report with sleeping: awaken up due to pain when lying on her side, 4-6x/night Assessment PT Clinical Summary Amalia has received a total of 8 PT sessions. She voiced frustration over continued pain and decreased ability with tolerance to stand and walk . With today's assessment compared to initial evaluation: pain rating from 2-5 to 2-6/10; radicular pain continues to be bilateral, intermittent lateral hips and L LE to lateral thigh to below knee; self assessment with back index rating is the same of 52% limitation in activity level; reported walking and standing tolerance is the same at 5 minutes and sleeping is the same, awakening 4-6x/night; 2 minute walking test distance from 410 to 465' with pain same at 5/10 after walking; no longer have pain increase with supine R hip flexion or L hip flexion and IR motions; increase single leg standing on L from 6 to 14 seconds; pain is decreased with distraction over lumbar and bilateral hips; education for HEP and body mechanics. The goals were partially met. Continue PT services. Plan of Care Interventions Aquatic Therapy,Electrical Stimulation,Hot Pack/ Cold Pack,Manual Therapy,Mechanical Traction,Neuro Re-education,Patient/Caregiver Education, Therapeutic Activities,Therapeutic Exercise, Ultrasound,Other Other Interventions taping PT Services Indicated Yes Treatment Frequency and 1-2x/wk for 8 visits Duration These treatments will address the objective and functional deficits as defined above. The patient will be advanced safely and appropriately in order for the patient to progress towards his/her prior level of function. Additional exercises will be introduced and as well as a comprehensive home exercise program upon discharge, if needed, ?to ensure carryover of functional gains achieved in the clinic. This treatment plan has been reviewed and agreement upon by the patient.
--- NOTE | 2025-04-08 14:30 | PCPTNOTE ---
pt was 15 minutes late for appt today; she had the wrong time.
--- NOTE | 2025-04-16 11:22 | OPREHPOC ---
Outpatient Therapy Plan of Care This is a Multidisciplinary Plan of Care that may contain components documented by all disciplines (PT, OT, and ST.) PT Problem 1 PT Problem #1 Knowledge Deficit PT Goal 1 Goal / Goal Update 1* independent with HEP 2* correct body mechanics with lifting from the floor 04-08-25 progress goals met continue to progress HEP and education 04-16-25 d/c- pt canceled appts goals not met Target Visit 16 PT Problem 2 PT Problem #2 Pain PT Goal 1 Goal / Goal Update 1* pt report pain rating at worst of 3/10 2* radicular pain to L mid thigh at worst 3* pt report standing/walking tolerance of 10 minutes 4* pt report with sleeping, awaken 3x/night due to pain 04-08-25 progress goals not met: #1 6/10; #2 to below knee; #3- 5 minutes; #4, 4-6x/night continue towards goals 04-16-25 d/c- pt canceled appts goals not met Target Visit 16 PT Problem 3 PT Problem #3 Impaired Flexibility PT Goal 1 Goal / Goal Update increase flexibility of anterior hip-quad, to decrease pull on hips and lumbar spine: supine with leg over edge of mat, knee flexion 110 ' 1* R 2* L 04-08-25 progress goals not met; #1 80'; #2 70' continue towards goals 04-16-25 d/c- pt canceled appts goals not met Target Visit 16 PT Problem 4 PT Problem #4 Impaired Strength PT Goal 1 Goal / Goal Update Increase strength of trunk and hips, to improve stability to spine and hips: 1* 2 minute walking test distance of 450' 2* L single leg standing x 20 seconds with good stability 3* pt able to tolerate 45 minutes of aquatic exercises 04-08-25 progress goals 1 and 3 met Target Visit 8 Progress Partially Met PT Goal 2 Goal / Goal Update 04-08-25 progress NEW GOALS: 1* L single leg standing x 20 seconds with good stability 2* 2 minute walking test distance of 500' 3* pain rating after walking 2 minutes of 10/18 04-16-25 d/c- pt canceled appts goals not met Target Visit 16
--- NOTE | 2025-04-16 11:22 | PTOPDC ---
Assessment and note entered by Ceci Wilson, PT Assessment Status Discharge - Pt Not Present ICD-10 Condition Codes (PT) Pain in low back M54.50,Radiculopathy, lumbar region M54.16 Onset October 26, 2024 Subjective Information called on -2 and canceled PT appointments, saw the dr and going to have a procedure. Assessment PT Clinical Summary Amalia called and canceled PT treatments. Refer to the 04-08-25 progress report for her status at last PT session. Discharge PT. Goals were not met. Plan of Care PT Services Indicated No
== END 2025-04-16 15:17 | disposition home or self-care (01) ==
LOC: ANHPT 13:30
PROVIDERS: PCP Nurse Practitioner; Visit Provider Nurse Practitioner Adult Health
DX: M54.16 Radiculopathy, lumbar region (principal); M47.816 Spondylosis without myelopathy or radiculopathy, lumbar region; M48.061 Spinal stenosis, lumbar region without neurogenic claudication; M46.1 Sacroiliitis, not elsewhere classified
CPT/HCPCS: 97012; 97110; 97113; 97162; 97530

== ENCOUNTER 2025-05-07 07:54 | Day surgery (SDC) | payer MEDICARE, SELFPAY ==
[2025-04-24 11:31] VITALS: BMI 24.7
--- NOTE | ~2025-05-07 | XR_ITS ---
EXAMINATION: XR fluoroscopy no charge DATE: 05/07/2025 09:19 INDICATION: Left L3-L4 and L4-L5 transforaminal epidural steroid injections TECHNIQUE: 96 for scopic images of the number spine were obtained during procedure performed by Dr. Colon. Radiologist was not present for the imaging or procedure. The amount of fluoroscopy time used during this procedure was 1.3 minutes. Cumulative radiation dosage of 66.33 mGy. COMPARISON: None. FINDINGS: Images demonstrate needles advanced to the posterior superior aspects of the left L3-L4 and L4-L5 neural foramina. Subsequent images demonstrate injected contrast extending into the perineural tissues at the bilateral neural foramina. IMPRESSION: 1. Fluoroscopy utilized during pain management procedure. See procedure note for further detail. Reviewed, dictated and finalized at location A. IMPRESSION: 1. Fluoroscopy utilized during pain management procedure. See procedure note fo r further detail.
--- OUTSIDE RECORDS SUMMARY | 2025-05-07 08:19 | XMS_ITS | Clinical Summary ---
Author Organization [facility] Address [address] [place] [id number] Care Team Providers Care Director Process Engineering Name Role Phone Sidney Crawford MD Primary Care Provider [phone] Allergies No known active allergies Medications albuterol [...] on file Legal Sex Female 1:12 PM CASINO CONTROLLER Gender Identity Not on file Sexual Orientation [...] Virus (HCV) Screening 1962 TdaP Immunization 1962 Cologuard 2007 Colonoscopy 2007 Colorectal Cancer Screening 2007 Immunochemical Fecal Occult Blood 2007 Pneumococcal Immunization (5 0+ years) (1 of 1 - PCV) 2012 Zoster Immunization (1 of 2) 2012 Influenza Immunization (#1) 2025 SARS-COV-2 Immunization (3 - season) 2025 06/18/2021, 10/08/2020 Respiratory Syncytial Virus (RSV) Immunization [...] track(2020 1:59 PM CDT) Yes Jaren Greer, AUTO BRAKE TECHNICIAN Note: I want to be able to cope better with chronic pain and dealing with my daughter. Goal Reviewed today with: patient Readiness to change: Ready to change Department associated with goal: [facility] Steps to achieve [...] Ready to change Department associated with goal: [facility] Steps to achieve [...] on file MEDICARE C HU[employer] Care Teams Director Process Engineering Relationship Specialty Start Date End Date Sidney Crawford MD [address] [place] [address] PCP - General Software Release Manager 10/28/20
--- OUTSIDE RECORDS SUMMARY | 2025-05-07 08:19 | XMS_ITS | Clinical Summary ---
Author Organization [facility] [address] Address [address] [place] [address] Care Team Providers Care Plasterer Journeyman Name Role Phone Ana Maria Trammell NP Primary Care Provider [phone] Thi Montelongo MD Unavailable Vijay Torres MD Unavailable Allergies Active Allergy Reactions Criticality Noted Date Comments Iodinated Contrast Media Rash Medium 03/05/2021 Iodine And Iodide Containing Products Medications albuterol 2.5 mg /3 mL (0.083 %) nebulizer solution Inhale 3 mL (2.5 mg total) Active clotrimazole- betamethasone (LOTRISONE) cream Apply topically 2 (two) times a day 09/27/19 24 Active fluticasone propionate (FLONASE) 50 mcg/actuation nasal spray Administer 2 sprays into affected nostril(s) daily 12/21/19 24 Active magnesium oxide 300 mg magnesium tablet Take 1,035 mg by mouth as needed Active cetirizine (ZyrTEC) 10 mg tablet Take 1 tablet (10 mg total) by mouth 2 (two) times a day 12/21/19 24 Active albuterol HFA (PROVENTIL HFA,VENTOLIN HFA,PROAIR HFA) 90 mcg/actuation inhaler INHALE 1 PUFF BY MOUTH EVERY 6 HOURS NEEDED FOR BRONCHOSPASM 12/16/19 24 Active melatonin tablet Take 10 mg by mouth nightly Active losartan (COZAAR) 50 mg tablet Take 1 tablet (50 mg total) by mouth nightly Active ibuprofen (ADVIL,MOTRIN ) 800 mg tablet Take 1 tablet (800 mg total) by mouth as needed Active vitamin D3-vitamin K2 25 mcg (1,000 unit)-90 mcg tablet,disint egrating Take by mouth Active DULoxetine DR (CYMBALTA) 60 mg capsule Take 1 capsule (60 mg total) by mouth daily 06/22/20 24 Active famotidine (PEPCID) 10 mg tablet 07/07/20 24 Active fluticasone propion-salme teroL (ADVAIR DISKUS) 250-50 mcg/dose diskus inhaler Inhale 1 puff 2 (two) times a day 07/01/20 24 Active dilTIAZem CD/XR/XT (CARDIZEM CD,DILACOR XR) 120 mg 24 hr capsule Take 1 capsule (120 mg total) by mouth daily 30 capsule 11 09/18/19 25 026 Active clonazePAM (KlonoPIN) 0.5 mg tablet TAKE 1 TABLET(0.5 MG) BY MOUTH EVERY NIGHT 30 tablet 02/01/20 25 Active dextroampheta mine-amphetam ine (ADDERALL) 10 mg tabletIndicat ions:MARIELY (obstructive sleep apnea) Take 1 tablet (10 mg total) by mouth 2 (two) times a day 60 tablet 05/02/20 25 Active fluticasone propionate (FLOVENT HFA) 220 mcg/actuation inhaler Inhale as needed 025 Discontinued tirzepatide, weight loss, (Zepbound) 2.5 mg/0.5 mL pen injectorIndic ations:MARIELY (obstructive sleep apnea) Inject 0.5 mL (2.5 mg total) under the skin every 7 days 2 mL 09/15/19 25 025 Discontinued solriamfetoL (Sunosi) 150 mg tablet TAKE 1 TABLET(150 MG) BY MOUTH DAILY 30 tablet 5 10/23/19 25 025 Discontinued dextroampheta mine-amphetam ine (ADDERALL) 10 mg tabletIndicat ions:MARIELY (obstructive sleep apnea) Take 1 tablet (10 mg total) by mouth 2 (two) times a day 60 tablet 03/05/20 25 025 Discontinued(R eorder) Active Problems Problem Noted Date Diagnosed Date MARIELY (obstructive sleep apnea) 07/20/2024 Adjustment disorder with mixed anxiety and depre ssed mood 03/31/2021 Scoliosis 02/07/2014 Spinal stenosis of lumbar re gion without neurogenic claudication 02/07/2014 Encounters Date Type Department Care Team Description 05/02/2025 1:15 PM CDT Office Visit [facility] [address] [place] [address] [address] [place] [id number] MD MARIELY (obstructive sleep apnea) (Primary Dx); Dream enactment behavior; Hypersomnia with sleep apnea; Morbid obesity with BMI of 40.0-44.9, adult (HCC) from Last 3 Months Surgical History [...] use GERD (gastroesophageal reflux disease) Diabetes mellitus Sleep apnea Family History Medical History Relation [...] you have a drink containing alc ohol? Never 05/02/2025 Average Number of Drinks Not on file 025 Frequency of Binge Drinking Not on file 04/11 Comments No Sex and Gender Information Value Date Recorded Sex Assigned at Not on file Legal Sex Female 9:31 PM RN PERIOPERATIVE Gender Identity Not on file Sexual Orientation Not on file Obstetrics History Para Term AB IAB SAB Ectopic Multiple Livin g Live Births 4 4 4 Date Outcome GA Total Labor Labor/2nd/3rd Weight Sex Type Anes PTL Malena A1 A5 Name Clin Term Term Term Term Last Filed Vital Signs Vital Sign Reading Time Taken Comments Blood Pressure 123/88 05/02/2025 1:25 PM CDT Pulse 87 05/02/2025 1:25 PM CDT Temperature 36.7 C (98 F) 09/04/2024 10:47 AM RN PERIOPERATIVE Respiratory Rate 18 09/04/2024 10:47 AM RN PERIOPERATIVE Oxygen Saturation 91% 05/02/2025 1:25 PM CDT Inhaled Oxygen Concentration - - Weight 112.9 kg (249 lb) 05/02/2025 1:25 PM CDT Height 160 cm (5' 2.99) 01/28/2025 1:56 PM CDT Body Mass Index 44.12 01/28/2025 1:56 PM CDT Plan of Treatment Health Maintenance Due Date Last Done Comments Colon Cancer Screening-Colonoscopy 1962 Depression Screening 1962 Hepatitis C Screening 1962 DTaP/Tdap/Td Vaccine (1 - Tdap) 1973 Hepatitis B Screening 1980 Regular Well Visit/Exam 18-64 1980 Pneumococcal vaccine <65 (1 of 2 - PCV) 1981 Zoster Vaccine (1 of 2) 2012 Covid-19 Vaccine (3 - season) 03/11/202503/2021, 10/08/2020 Influenza Vaccine (#1) 2025 Breast Cancer Screening-Mammogram 09/27/2025 025 Procedures Procedure Name Priority Date/Time Associated Diagnosis [...] RIGHT breast was performed by a trained teachers assistant and by Dr. Barger. BREAST PARENCHYMAL COMPOSITION: [...] discussed with the patient by Dr. Barger. Courtney Underwood NP IMG MAMMO PROCEDURES Fi nal Result from Last 3 Months or Most Recently Relevant to Health Maintenance Insurance [employer] MEDICARE GOLD AET[employer] MEDICARE GOLD Care Teams Plasterer Journeyman Relationship Specialty Start Date End Date Ana Maria Trammell MICR[employer] ACCESS DEVELOPER PCP - General Cardiovascular Disease 11/29/23 Thi Montelongo MD [address] [address] Referring Physician Gynecology 07/05/24 Vijay Torres MD [address] [address] Consulting Physician Cardiology 04/15/25
--- OUTSIDE RECORDS SUMMARY | 2025-05-07 08:19 | XMS_ITS | Encounter Summary ---
Author Organization [facility] Address [address] [place] [address] Care Team Providers Care Dirt Supervisor Name Role Phone Ana Maria Trammell NP Primary Care Provider [phone] Thi Montelongo MD Unavailable [phone] Vijay Torres MD Unavailable Encounter Details Date Type Department Care Team (Late st Contact Info) Description 06/27/2024 Orders Only [facility] Health Information Management [address] [place] [id number] Scanning, Provider Social History Tobacco Use Types Packs/Day Years Used Date Smoking Tobacco: Former Cigarettes Q uit: 1996 Smokeless Tobacco: Never Alcohol Use Standard Drinks/Week Comments No 0 (1 standard drink = 0.6 oz pur e alcohol) Comments Unknown Sex and Gender Information Value Date Recorded Sex Assigned at Not on file Legal Sex Female 9:31 PM HEALTH CARE RECRUITER Gender Identity Not on file Sexual Orientation Not on file documented as of this encounter Plan of Treatment Not on file documented as of this encounter Procedures Procedure Name Priority Date/Time Associated Diagnosis Comments SCAN - LABS 06/27/2024 documented in this encounter Results * SCAN - LABS (06/27/2024) us Provider Scanning Final Result documented in this encounter Visit Diagnoses Not on filedocumented in this encounter Care Teams Dirt Supervisor Relationship Specialty Start Date End Date Ana Maria Trammell NP PCP - General Cardiovascular Disease 11/29/23 Thi Montelongo MD [address] [facility] [address] [place] [address] Referring Physician Gynecology 07/05/24 Vijay Torres MD [address] [place] [address] Consulting Physician Cardiology 04/15/25 documented as of this encounter
--- OUTSIDE RECORDS SUMMARY | 2025-05-07 08:20 | XMS_ITS | Clinical Summary ---
Author Organization [facility] Address [address] [place] [address] Care Team Providers Care Consulting It Architect Name Role Phone Sidney Crawford MD Primary Care Provider [phone] Source Comments [facility],non-owned Affiliates and Associated Physician Practices is amultiple site organization consisting of ambulatory clinics and hospital sitesin [place], [place], [place] and [place]. This disclosure is being madepursuant to the Care Everywhere program and may not contain all information available regarding this patient. Last updated 18.[facility] Allergies Active Allergy Reactions Criticality Noted Date [...] fluticasone propionate (Flonase) 50 MCG/ACT nasal spray [place] 2 (two) sprays into each nostril once [...] on file Legal Sex Female 5:45 PM ELECTRONIC GLUING MACHINE OPERATOR Gender Identity Not on file Sexual Orientation Not on file Last Filed Vital Signs Vital Sign Reading Time Taken Comments Blood Pressure 133/82 12/21/2023 1:55 PM CDT Pulse 111 12/21/2023 1:55 PM CDT Temperature 36.5 C (97.7 F) 12/21/2023 1:55 PM CDT Respiratory Rate 16 06/23/2015 4:20 PM ELECTRONIC GLUING MACHINE OPERATOR Oxygen Saturation 91% 12/21/2023 1:55 [...] Tdap) 1981 PNEUMOCOCCAL VACCINE 50+ (1 of 1 - PCV) 2012 ZOSTER VACCINE (1 of 2) 2012 SCREENING FOR DIABETES 12/21/2023 5, 06/10/2015 DEPRESSION SCREENING 07/11/2024 12/21/2023 MEDICARE AWV CALENDAR YEAR 2024 COVID-19 VACCINE (1 - 2023-2 5 season) 2025 INFLUENZA VACCINE (#1) 2025 Respiratory Syncytial Virus (RSV) Vaccine Pt: [...] PANEL (CALCIUM TOTAL) Routine 06/10/2015 11:49 AM ELECTRONIC GLUING MACHINE OPERATOR from Last 3 Months or Most Recently Relevant to Health Maintenance Results * BASIC METABOLIC PANEL (CALCIUM TOTAL) (06/10/2015 11:49 AM ELECTRONIC GLUING MACHINE OPERATOR) BUN 13 7 - 26 mg/dL [facility] Creatinine 0.9 0.6 - 1.2 mg/dL [facility] Sodium 141 136 - 145 mmol/L [facility] Potassium 3.8 3.5 - 4.5 mmol/L [facility] Chloride 102 98 - 107 mmol/L [facility] CO2 28 22 - 29 mmol/L [facility] Glucose 86 70 - 115 mg/dL [facility] Calcium 9.5 8.4 - 10.2 mg/dL [facility] Anion Gap 15 8 - 18 [facility] BUN/Creatinine Ratio 14 7 - 23 [facility] Osmolality Calculated 277 270 - 300 mOsm/kg [facility] eGFR >60 >60 mL/min/1.7 3 m2 [facility] Blood specimen (specimen) BLOOD SPECIMEN / Unknown 06/10/2015 11:49 AM ELECTRONIC GLUING MACHINE OPERATOR 06/10/2015 12:36 PM ELECTRONIC GLUING MACHINE OPERATOR us Soto De Oliveira MD LAB - CHEMISTRY ORDERABLES Fin al Result [address] [phone] from Last 3 Months or Most Recently Relevant to Health Maintenance Insurance SELF PAY NO INSURANCE Member Subscriber Plan / Payer (Ef fective for All Dates) Name:Amalia Fuenz Member ID:Not on file Relation to Subscriber:Not on file Name:AMALIA FUNEZ Subscriber ID:Not on file Address: [address] [place] [id number] Payer ID:Not on file Group ID:Not on file Type:Self Pay Address: [place], [place] [employer] MED[employer] ADV Care Teams Consulting It Architect Relationship Specialty Start Date End Date Sidney Crawford MD [facility] [place] [address] PCP - General 01/26/21
[2025-05-07 08:22] VITALS: BP 136/89; PULSE 94; RESP 16; TEMP 36.9; O2SAT 94
--- NOTE | 2025-05-07 08:35 | WPDHPUPDATE1 ---
History and Physical Update Update Date/Time: 05/07/25 08:35 History and Physical has been reviewed, including an updated exam of the patient. There are NO changes in the patient's condition. Risks, benefits, and alternatives have been discussed and questions answered. Patient agrees to proceed with procedure.
--- NOTE | 2025-05-07 08:36 | W.PM.PROC2 ---
Procedure Note - Detailed Date of Procedure 05/07/25 Pre-op Diagnosis Lumbosacral radiculopathy, Lumbar Spinal Stenosis w/Neurogenic Claudication Post-op Diagnosis Same Procedure Performed Left Lumbar Transforaminal Epidural Steroid Injection under Fluoroscopic Guidance and with Contrast Control at L3-4, L4-5. Surgeon Sivakumar Colon MD Anesthesia Local Description of Procedure INFORMED CONSENT: Risks, benefits and alternatives to the procedure were discussed in detail with the patient who expressed explicit understanding and consent to proceed. Patient was informed verbally and in written form regarding the risks associated with the procedure including the low risk of serious infection, bleeding/bruising, allergic reaction, nerve or organ injury, paralysis, procedural site pain or discomfort, worsening pain and/or mobility, failure to treat and/or disfigurement. The patient expressed explicit understanding and consent to proceed. All materials required for the procedure were available prior to procedure start. Site and side was marked prior to procedure and confirmed in the presence of the patient. PROCEDURE IN DETAIL: The patient was brought to the procedural suite and placed in the prone position. Patient was made comfortable with use of pillows under the head/chest, hips and ankles. Skin overlying the injection site was prepared broadly with ChloraPrep applicator and draped in a sterile manner. Aseptic technique was employed throughout. The endplates of the vertebral body at the site of interest were aligned in the AP view. Ipsilateral oblique angulation was utilized to better visualize the neuroforamen of interest. Local anesthesia was established by infiltration with approximately 5 mL of 0.5% PF lidocaine via a 1-1/2 inch 27-gauge needle. A 22-gauge 5.0 inch Nick (pencil point) spinal needle was advanced until the needle approached the 6 o'clock position on the pedicle just superior to the exiting nerve root. on the left at L4-5. Lateral view was utilized to confirm appropriate position of the needle tip within the superior and posterior portion of the respective foramen. In an AP view, 1 mL of dotarem contrast medium was injected after negative aspiration for CSF, blood or other bodily fluid, showing appropriate neurogram without evidence of intravascular or intrathecal spread of contrast. Digital subtraction imaging was used with an additional 1ml of the same contrast medium to confirm absence of intravascular contrast spread. A 1mL solution containing 5 mg of dexamethasone was injected after negative repeat aspiration. Appropriate spread of the injectate was confirmed with washout of previously injected contrast. No parasthesias were elicited. Needle was removed completely intact without difficulty. The same exact procedure was repeated for all remaining levels on the ipsilateral side, left L3-4 neuroforamen, modified as necessary to accommodate for the new target location with identical findings and results and no evidence of complication. Images were saved and documented in the patient chart. Patient's skin was cleaned and sterile bandage applied. The patient tolerated the procedure well. The patient was transported to the recovery area in stable condition where they were observed for an appropriate amount of time prior to discharge, without evidence of complication. The patient was instructed to avoid excessive activity for the next 48 hours, including climbing and frequent use of stairs. Showers only for 48 hours. They were instructed not to drive or operate heavy machinery for 24 hours. They are to monitor for severe headaches, fevers, chills, night sweats, erythema/swelling at the site or any other signs of infection, bleeding/bruising, bowel or bladder changes as well as new pain, weakness or numbness in the upper or lower extremity. Should they notice these changes, they are instructed to call our office immediately or report directly to the nearest Emergency Department if no answer or if after posted office hours. COMPLICATIONS: None COMMENTS: None CONTRAST WASTED: 16 mL Dotarem. STEROID WASTED: 0 mg of dexamethasone. Complications No immediate complications Condition Stable Disposition Same day [facility] Billing Surgery - Charge Forward: Surgery Billing
[2025-05-07 09:06] VITALS: BP 147/84; PULSE 100; RESP 21; O2SAT 94
[2025-05-07 09:12] VITALS: BP 131/73; PULSE 85; RESP 17; O2SAT 93
[2025-05-07] MEDS: LIDOCAINE 2% PF LOCAL INJ 5 ML VIAL (09:13)
[2025-05-07] MEDS: DEXAMETHASONE SODIUM PHOSP/PF 10 MG/ML 1 ML VIAL (09:13)
[2025-05-07 09:20] VITALS: BP 118/80; PULSE 94; RESP 20; O2SAT 95
== END 2025-05-07 09:29 | disposition home or self-care (01) ==
PROVIDERS: PCP Nurse Practitioner; Visit Provider Anesthesiology Pain Medicine
PROC: (CPT 64483; principal; 2025-05-07 09:10)
DX: M54.16 Radiculopathy, lumbar region (principal); M48.062 Spinal stenosis, lumbar region with neurogenic claudication
CPT/HCPCS: 64483; 64484; 99199